=== PATIENT | female | born 1935 | race Caucasian/White ===

== ENCOUNTER 2018-03-10 12:57 | Inpatient (IN) | payer MEDICARE, OTHER ==
[2018-03-10] MEDS ORDERED: Nitroglycerin 0.4 MG TAB (25 Tab Bottle) SL PRN (14:23)
[2018-03-10] MEDS ORDERED: traMADol HCl 50 MG TAB PO PRN (14:23)
[2018-03-10] MEDS ORDERED: Loratadine 10 MG TAB PO PRN (14:23)
[2018-03-10] MEDS ORDERED: Mag-Al 1200 mg/1200 mg/30 ML UDCUP PO PRN (14:23)
[2018-03-10] MEDS ORDERED: Calcium Carbonate 500 MG ChewTAB PO PRN (14:23)
[2018-03-10] MEDS ORDERED: cloNIDine 0.1 MG TAB PO PRN (14:23)
[2018-03-10] MEDS ORDERED: hydrALAZINE 20 MG/ML VIAL SLOW IVP PRN (14:23)
[2018-03-10] MEDS ORDERED: Diabetic Tussin 200 MG/10 ML UDCUP PO PRN (14:23)
[2018-03-10] MEDS ORDERED: Benzonatate 100 MG CAP PO PRN (14:23)
[2018-03-10 14:45] LABS: Hemoglobin 15.6 g/dL (12.0-16.0); Mean Corpuscular HGB CONC 33.6 g/dL (32.0-36.0); Mean Corpuscular Hemoglobin 34.4 pg (27.0-31.0); Mean Platelet Volume 5.4 fL (7.4-10.4); Platelet Count 279 thou/uL (130-400); RBC Distribution Width 12.2 % (11.5-14.5); Red Blood Cell (RBC) Count 4.54 mill/uL (4.20-5.40); White Blood Cell (WBC) Count 16.4 thou/uL (4.8-10.8)
[2018-03-10 15:05] VITALS: BMI 26.1
[2018-03-10 15:07] LABS: Band 17 % (5-11); Eosinophils 3 % (0-10); Lymphocytes 14 % (21-51); MDiff Complete? YES; Monocytes 11 % (0-10); Myelocyte 1 % (0-0); Neutrophil 53 % (42-75); PLT Morphology Comment Appears Adequate; RBC Morphology Normal; Reactive Lymphocytes 1 % (0-10)
[2018-03-10 15:11] LABS: ALT (SGPT) 12 U/L (8-55); AST (SGOT) 11 U/L (5-34); Albumin 3.1 g/dL (3.4-4.8); Alkaline Phosphatase 73 U/L (40-150); Anion Gap 13 mmol/L (10-20); BUN (Urea Nitrogen) 11 mg/dL (9.8-20.1); Bilirubin, Total 0.7 mg/dL (0.2-1.2); Calc. Creatinine Clearance 67 mL/min (70-130); Calcium 8.8 mg/dL (7.8-10.44); Carbon Dioxide 28 mmol/L (23-31); Chloride 99 mmol/L (98-107); Estimated GFR-MDRD 75; Globulin 3.2 g/dL (2.4-3.5); Glucose 118 mg/dL (83-110); Protein, Total 6.3 g/dL (6.0-8.3); Sodium 137 mmol/L (136-145)
[2018-03-10 15:17] LABS: Potassium 2.6 mmol/L (3.5-5.1)
--- NOTE | 2018-03-10 15:50 | HP ---
DATE OF ADMISSION: 03/10/2018 PRIMARY CARE PHYSICIAN: Dr. Mendoza Read. CHIEF COMPLAINT: Diarrhea with blood in the stools. HISTORY OF PRESENT ILLNESS: Ms. Chandra is a very pleasant 83-year-old female with past medical hi story of microscopic colitis, usually under control, who presented as a direct admit from primary [facility] e physician's office today with the above-mentioned complaints. History is mainly obtained by the pa clara herself and supplemented by her present in the room. Ms. Chandra reports that she was diagnosed with microscopic colitis about 20 years ago and has had a colonoscopy about 10 years ago. She has followed up with a general helper in [facility]. She has been stable without any significant symptoms on budesonide 3 tablets every morning. However, ab out 1 week ago, she started to have significant amount of diarrhea with incontinence. She was going multiple times of the day and it was difficult for her to control it. It was associated with some cr ampy abdominal pain, mainly in the lower abdomen. She did not have any nausea and vomiting. She did report feeling feverish and her highest temperature was 100.2. It was associated with some chills. She denies any nausea or vomiting. Today morning, she actually had passed a significant amount of b lood in place of stools. She has noticed a small amount of blood in the stools for the last few days , but it was only minor on wiping. This morning, she reports that "only blood came out." She presen cristian to her primary care physician's office where she was found to have low blood pressure. Reportedl y, systolic was in the 90s. She was sent to the hospital as a direct admit for further evaluation an d resuscitation. At the time of my examination, the patient is hemodynamically stable, awake, alert, oriented x3 and i s nontoxic and is symptom free. She was treated with metronidazole as an outpatient for the last 4 days without benefit. PAST MEDICAL HISTORY: Microscopic colitis. PAST SURGICAL HISTORY: 1. Tonsillectomy. 2. Ovarian surgery and appendectomy. 3. Mastectomy 1970. 4. Cholecystectomy in 1987. 5. Left knee surgery. 6. Cataract surgery. 7. Left total knee replacement in 2013. SOCIAL HISTORY: She is and lives with her . No history of drug, tobacco or alcohol a buse. CURRENT MEDICATIONS: Include aspirin 81 mg every night, melatonin 10 mg at bedtime, multivitamin chase ly, Probiotic daily, vitamin C daily, omeprazole 20 mg daily, triazolam 2 tablets at bedtime, budeson shantel 3 tablets every morning, Lipitor 1 tablet at bedtime. ALLERGIES: Multiple allergies listed as below, CLINDAMYCIN, LEVOFLOXACIN, PENICILLIN, POLYETHYLENE G LYCOL and SULFONAMIDES. FAMILY HISTORY: Significant for heart attack in her father in his late 80s. Otherwise, she denies a ny family history of stroke or cancers. REVIEW OF SYSTEMS: A 12-point review of systems is done and is negative except for those mentioned i n the history and physical. Constitutional: Weight loss or gain, ability to conduct usual activitie s. Skin: Rash, itching. Eyes: Double vision, pain. ENT/Mouth: Nose bleeding, neck stiffness, pa in, tenderness. Cardiovascular: Palpitations, dyspnea on exertion, orthopnea. Respiratory: Shortn ess of breath, wheezing, cough, hemoptysis, fever or night sweats. Gastrointestinal: Poor appetite, abdominal pain, heartburn, nausea, vomiting, constipation, or diarrhea. Genitourinary: Urgency, fr equency, dysuria, nocturia. Musculoskeletal: Pain, swelling. Neurologic/Psychiatric: Anxiety, dep ression. Allergy/Immunologic: Skin rash, bleeding tendency. LABORATORY DATA: Labs were ordered at the time of presentation and are as follows: CBC shows WBCs a t 16.4 with 17% bands, hemoglobin is 15.6, hematocrit 46.5, platelet count of 79,000. Serum chemistr ies show glucose of 118. Potassium is pending at this time, but her liver enzymes and rest of the [facility] chemistries are unremarkable. PHYSICAL EXAMINATION: VITAL SIGNS: Upon presentation, temperature 99.2, pulse of 117, respirations 16, saturating 93% on r oom air, blood pressure 141/82. GENERAL: No acute distress. She is awake, alert, oriented x3, appears younger than her stated age, in no acute distress, appears nontoxic. HEENT: Mucous membranes are slightly dry. No oropharyngeal exudate or erythema. Head is normocepha lic, atraumatic. Pupils equal and reactive to light and accommodation. Extraocular movement intact. NECK: Supple without any lymphadenopathy, JVD or bruit. CHEST: Clear to auscultation without any wheezing, rales or rhonchi. Rate and rhythm is regular wit hout any murmur, rubs or gallops. ABDOMEN: Soft. No guarding, no rebound, no rigidity, no hepatosplenomegaly. She is tender to palpa tion below the umbilical region in both right and left lower quadrants. EXTREMITIES: Free of any cyanosis, clubbing or edema. SKIN: Shows some bruising and thin skin. Otherwise, no rashes. NEUROLOGIC: Nonfocal. PSYCHIATRIC: She has normal affect IMPRESSION AND PLAN: 1. Bloody diarrhea, suspected infectious gastroenteritis. The patient has been stable with regards to her symptoms of microscopic colitis for all these years on budesonide. With the presence of fever and leukocytosis, infection is more likely. At this time, we will start her on empiric IV antibioti cs and IV fluids and send stool studies for ova and parasite culture, WBCs and C. diff. We will requ est consultation with Gastroenterology and continue her budesonide for now. We will hold her aspirin for now. Her H&H is stable at this time. We will start her empirically on proton pump inhibitor IV b.i.d. 2. Hypovolemic shock. The patient's blood pressure is adequate at this time. She will be started o n normal saline and we will monitor closely. 3. Sepsis. The patient has elevated WBCs with left shift and subjective fever and the source of inf ection. She will be treated with IV fluids and IV antibiotics as above. 4. History of microscopic colitis. The patient will be referred to GI after discharge as desired by her. Continue budesonide for now. Outpatient colonoscopy as suggested by Gastroenterology upon jesús womack. 5. Code status: FULL CODE. Discussed with the patient and her . 6. Deep venous thrombosis and gastrointestinal prophylaxis. At this time, we will avoid any pharmac ological deep venous thrombosis prophylaxis given the gastrointestinal bleed. 7. Add p.r.n. medication orders and supportive care. DISPOSITION: Ms. Chandra is currently being admitted to the hospital with sepsis and likely infect ious gastroenteritis. Estimated length of stay at this time is at least 2-3 midnights. Further management will depend upon her clinical course.
[2018-03-10] MEDS: Sodium Chloride 0.9% 1,000 ML IV SCH (16:06)
[2018-03-10] MEDS: Potassium Chloride 20 MEQ TAB PO SCH ×2 (16:07→21:06)
[2018-03-10] MEDS: Calcium Carbonate + Vit D 1 TAB PO SCH (17:49)
[2018-03-10] MEDS ORDERED: TRIAZOLAM PO SCH (21:00)
[2018-03-10] MEDS: Melatonin 3 MG TAB PO SCH (21:05)
[2018-03-10] MEDS: MEROPENEM 1 GM/50 ML 1 GM in Premix Bag 1 BAG IVPB SCH (21:07)
[2018-03-10] MEDS: Pantoprazole 40 MG VIAL IVP SCH (21:07)
[2018-03-10] MEDS: metroNIDAZOLE 500 MG in Premix Bag 1 BAG IVPB SCH (21:08)
[2018-03-10] MEDS ORDERED: Meropenem 1 GM in Sodium Chloride 0.9% 100 ML IVPB SCH (22:00)
--- NOTE | 2018-03-10 22:23 | CON ---
DATE OF CONSULTATION: 03/10/2018 CHIEF COMPLAINT: Bloody diarrhea. HISTORY OF PRESENT ILLNESS: Ms. Chandra is an 83-year-old woman who presented with brown liquidy d iarrhea 5 times a day starting on Saturday, 3 days ago. She felt very dehydrated with this. She estrada d Dr. Montgomery's office and was given metronidazole empirically. Today, she had a liquidy bloody diarrh ea episode and she came in. She was direct admitted to the hospital for further care. She has had n o nausea or vomiting. She complains of dull aching lower abdominal pain that last around 20 minutes at a time several times per day. She did have loss of continence with the diarrhea initially. She h as had no chest pain or shortness of breath. She does report a fever to 100.7 when the diarrhea firs t started several days ago, but no ongoing fever. She did have an episode of diarrhea in August which she took some metronidazole then. She has been on budesonide daily for years for microscopic colitis. She states her last colonoscopy was by Dr. Burgos in [place] last fall. PAST MEDICAL HISTORY: Microscopic colitis, hyperlipidemia, insomnia. PAST SURGICAL HISTORY: Tonsillectomy, cholecystectomy, ovary surgery, left mastectomy for benign dis ease, and colonoscopy. FAMILY HISTORY: Negative for GI malignancy. Her father had emphysema. SOCIAL HISTORY: She quit smoking 50 years ago. She has around 3 ounces of bourbon daily. No drugs. ALLERGIES: SULFA, CLINDAMYCIN, PENICILLIN, LEVOFLOXACIN and reported GoLYTELY. REVIEW OF SYSTEMS: Negative x10 systems reviewed except as stated in history of present illness. PHYSICAL EXAMINATION: VITAL SIGNS: Temperature 99.2, pulse 107, blood pressure 141/82. GENERAL: She is in no acute distress, alert and oriented x3. HEENT: Eyes have no scleral icterus. Oropharynx is clear, without lesions. NECK: No cervical or supraclavicular lymphadenopathy. LUNGS: Clear to auscultation bilaterally. HEART: Tachycardic S1, S2. ABDOMEN: Soft, mild tenderness in lower abdomen without guarding, a little bit more so tender in the left lower quadrant. Bowel sounds are present. EXTREMITIES: No lower extremity edema. LABORATORY: White blood cell count 16.4, hemoglobin 15.6, platelets 279. Creatinine 0.57. IMPRESSION: 1. Diarrhea for the last 4 days with bloody diarrhea this morning. She is on budesonide chronically for microscopic colitis. Infectious colitis would be the most likely source; however, she could hav e developed an ischemic colitis related to dehydration from infectious colitis. She has been treated empirically with metronidazole for the last 3-4 days and the symptoms have continued, however. She does have 3 ounces of bourbon daily, but she has not had any since starting the metronidazole. 2. History of microscopic colitis diagnosed 20 years ago. She has been on budesonide for many years 9 mg daily. RECOMMENDATIONS: 1. Obtain the previous colonoscopy report if she states she just had one in [place] last fall. 2. IV fluids and antibiotics. 3. Stool studies. 4. I will hold off endoscopy at this point until we have the previous report. CT will unlikely smalls ge management significantly now. It might help show a pattern of colitis. It might be suggestive of ischemic colitis; however, the first up release to obtain stool studies and treat her clinically. 5. Clear liquid diet.
[2018-03-10 22:47] LABS: Bilirubin Small (Negative); Blood, Urine Negative (Negative); Clarity CLOUDY (Clear); Glucose, Urine (Dipstick) Negative (Negative); Leukocyte Moderate (Negative); Nitrite Positive (Negative); Protein, Urine (Dipstick) Trace mg/dL (Neg-Trace); Specific Gravity, Urine 1.017 (1.002-1.036); pH, Urine 6.5 (5.0-9.0)
[2018-03-10 22:49] LABS: Bacteria/HPF 1+ HPF (None Seen); Hyaline Casts/LPF 7-10 HYALINE CAST LPF (0-3 Hyaline); Pathc Cast-AUWi Flag 0.87 (0-2.49)
[2018-03-11 05:52] LABS: Anion Gap 11 mmol/L (10-20); BUN (Urea Nitrogen) 10 mg/dL (9.8-20.1); Calc. Creatinine Clearance 88 mL/min (70-130); Calcium 7.9 mg/dL (7.8-10.44); Carbon Dioxide 24 mmol/L (23-31); Chloride 106 mmol/L (98-107); Estimated GFR-MDRD Greater than 90; Glucose 84 mg/dL (83-110); Potassium 3.6 mmol/L (3.5-5.1); Sodium 137 mmol/L (136-145)
[2018-03-11 06:13] LABS: Band 45 % (5-11); Eosinophils 1 % (0-10); Hemoglobin 13.7 g/dL (12.0-16.0); Lymphocytes 23 % (21-51); MDiff Complete? YES; Mean Corpuscular HGB CONC 33.6 g/dL (32.0-36.0); Mean Corpuscular Hemoglobin 34.4 pg (27.0-31.0); Mean Platelet Volume 5.8 fL (7.4-10.4); Metamyelocyte 1 % (0-0); Monocytes 10 % (0-10); Neutrophil 20 % (42-75); PLT Morphology Comment Appears Adequate; Platelet Count 252 thou/uL (130-400); RBC Distribution Width 12.1 % (11.5-14.5); Red Blood Cell (RBC) Count 3.97 mill/uL (4.20-5.40); White Blood Cell (WBC) Count 12.7 thou/uL (4.8-10.8)
[2018-03-11] MEDS: MEROPENEM 1 GM/50 ML 1 GM in Premix Bag 1 BAG IVPB SCH ×3 (06:32→21:51)
[2018-03-11] MEDS: metroNIDAZOLE 500 MG in Premix Bag 1 BAG IVPB SCH ×3 (06:32→20:45)
[2018-03-11] MEDS: Sodium Chloride 0.9% 1,000 ML IV SCH ×4 (06:32→20:45)
[2018-03-11] MEDS: Pantoprazole 40 MG VIAL IVP SCH ×2 (09:20→20:39)
--- NOTE | 2018-03-11 12:14 | PDOC.PN ---
- Subjective Encounter Start Date: 03/11/18 Encounter Start Time: 12:20 Subjective: Patient reports some improvement in abdominal pain this morning and less -: diarrhea. Still some blood in the diarrhea. No fever or other complaints. - Objective Resuscitation Status: Resuscitation Status FULL:Full Resuscitation MAR Reviewed: Yes Vital Signs & Weight: Vital Signs (12 hours) Temp Pulse Resp BP Pulse Ox 03/11/18 08:00 99.2 F 101 H 20 133/66 95 03/11/18 04:00 99.0 F 100 17 129/65 94 L Weight Admit Weight 162 lb Weight 162 lb I&O: 03/10/18 03/11/18 03/12/18 06:59 06:59 06:59 Intake Total 1890 Output Total 700 Balance 1190 Result Diagrams: 03/11/18 04:25 03/11/18 04:25 Phys Exam - Physical Examination Constitutional: NAD HEENT: moist MMs Respiratory: no wheezing, no rales, no rhonchi Cardiovascular: RRR, no significant murmur Gastrointestinal: soft, positive bowel sounds Mild TTP entire lower abdomen without guarding Neurological: non-focal, moves all 4 limbs Psychiatric: normal affect, A&O x 3 Dx/Plan (1) Sepsis Code(s): A41.9 - SEPSIS, UNSPECIFIED ORGANISM Status: Acute Comment: WBC decreasing, tachycardia improved (2) Infectious colitis Code(s): A09 - INFECTIOUS GASTROENTERITIS AND COLITIS, UNSPECIFIED Status: Acute Comment: On Meropenem and Flagyl. Stool studies positive for blood and elevated lactoferrin. C.diff, Enterohemorrhagic E.coli, Shiga toxin, Campy, O&P all negative. Culture with normal stool rina. (3) GI bleed Code(s): K92.2 - GASTROINTESTINAL HEMORRHAGE, UNSPECIFIED Status: Acute Comment: secondary to #1, blood counts stable (4) Microscopic colitis Code(s): K52.839 - MICROSCOPIC COLITIS, UNSPECIFIED Status: Chronic Comment : controlled on Budesonide - Plan cont current plan of care, continue antibiotics, PT/OT, DVT proph w/SCDs * . - Discharge Day Encounter end time: 12:45
[2018-03-11] MEDS: Saccharomyces boulardii 250 MG CAP PO SCH (14:25)
[2018-03-11] MEDS: Calcium Carbonate + Vit D 1 TAB PO SCH ×2 (18:05→18:09)
[2018-03-11] MEDS: Ondansetron HCl/PF 4 MG/2 ML Vial IVP PRN (18:06)
--- NOTE | 2018-03-11 18:46 | PRG ---
DATE OF SERVICE: 03/11/2018 SUBJECTIVE: Ms. Chandra has left lower quadrant abdominal discomfort today. She has had 4 bloody diarrhea episodes; however, her fifth stool today with liquidy brown and nonbloody. She has had just some water today by mouth. OBJECTIVE: VITAL SIGNS: Temperature 98.1, pulse 102, blood pressure 129/68. GENERAL: She is in no acute distress. She is alert and oriented. LUNGS: Clear to auscultation bilaterally. HEART: Regular rate and rhythm. ABDOMEN: Soft, nontender, she has mild tenderness in the left lower quadrant without guarding. Liana l sounds are present. EXTREMITIES: No lower extremity edema. LABORATORY DATA: White blood cell count 12.7, down from 16.4; hemoglobin 13.7, down from 15.6; plate lets 252. Creatinine 0.56. IMPRESSION: Bloody diarrhea. This is most likely secondary to ischemic colitis versus infectious co litis. Stool studies are negative so far except for an elevated lactoferrin. She now states that he r last colonoscopy was 5 years ago rather than last August. RECOMMENDATIONS: 1. I will increase her IV fluids up to 200 mL per hour. 2. Restart clear liquid diet. 3. Continue antibiotics. 4. We will eventually want to perform colonoscopy for her. If she rapidly improved over the next co uple of days, so we might delay this for a month; however, she fails to improve, then we can perform this as an inpatient. She was quite dehydrated on presentation. Her hemoglobin has improved with fl uids. Her hemoglobin has come down with fluid resuscitation.
[2018-03-11] MEDS: Acetaminophen 325 MG TAB PO PRN (20:38)
[2018-03-11] MEDS: Melatonin 3 MG TAB PO SCH (20:38)
[2018-03-12] MEDS: MEROPENEM 1 GM/50 ML 1 GM in Premix Bag 1 BAG IVPB SCH ×3 (05:12→21:18)
[2018-03-12] MEDS: metroNIDAZOLE 500 MG in Premix Bag 1 BAG IVPB SCH ×3 (06:20→21:19)
[2018-03-12] MEDS: Saccharomyces boulardii 250 MG CAP PO SCH (09:39)
[2018-03-12] MEDS: Pantoprazole 40 MG VIAL IVP SCH ×2 (09:40→20:13)
--- NOTE | 2018-03-12 09:41 | PDOC.PN ---
- Subjective Encounter Start Date: 03/12/18 Encounter Start Time: 11:50 Subjective: Patient with 15 bloody stools overnight. Feels a bit weak but still -: ambulating well to the bathroom. Abdominal pain not bad, seems to be -: improving. - Objective Resuscitation Status: Resuscitation Status FULL:Full Resuscitation MAR Reviewed: Yes Vital Signs & Weight: Vital Signs (12 hours) Temp Pulse Resp BP Pulse Ox 03/12/18 07:56 98.9 F 100 18 127/71 95 Weight Admit Weight 162 lb Weight 162 lb I&O: 03/11/18 03/12/18 03/13/18 06:59 06:59 06:59 Intake Total 1890 345 Output Total 700 Balance 1190 345 Result Diagrams: 03/11/18 04:25 03/11/18 04:25 Phys Exam - Physical Examination Constitutional: NAD HEENT: moist MMs Respiratory: no wheezing, no rales, no rhonchi Cardiovascular: RRR, no significant murmur Gastrointestinal: soft, positive bowel sounds Neurological: non-focal, moves all 4 limbs Psychiatric: normal affect, A&O x 3 Dx/Plan (1) Sepsis Code(s): A41.9 - SEPSIS, UNSPECIFIED ORGANISM Status: Acute Comment: WBC decreasing, tachycardia improved though still around 100 this AM (2) Infectious colitis Code(s): A09 - INFECTIOUS GASTROENTERITIS AND COLITIS, UNSPECIFIED Status: Acute Comment: On Meropenem and Flagyl. Stool studies positive for blood and elevated lactoferrin. C.diff, Enterohemorrhagic E.coli, Shiga toxin, Campy, O&P all negative. Culture with normal stool rina. (3) GI bleed Code(s): K92.2 - GASTROINTESTINAL HEMORRHAGE, UNSPECIFIED Status: Acute Comment: secondary to #1, recheck H/H to make sure blood counts remaining stable (4) Microscopic colitis Code(s): K52.839 - MICROSCOPIC COLITIS, UNSPECIFIED Status: Chronic Comment : controlled on Budesonide - Plan cont current plan of care, continue antibiotics, PT/OT, DVT proph w/SCDs Continue IV abx -: If doesn't improve may need colonscopy in hospital * . - Discharge Day Encounter end time: 12:00
[2018-03-12 12:19] LABS: Hemoglobin 13.9 g/dL (12.0-16.0)
[2018-03-12] MEDS: Sodium Chloride 0.9% 1,000 ML IV SCH (16:49)
[2018-03-12] MEDS ORDERED: GoLYTELY 4,000 ml Bottle PO SCH (18:15)
[2018-03-12] MEDS: Calcium Carbonate + Vit D 1 TAB PO SCH (18:30)
--- NOTE | 2018-03-12 18:32 | PRG ---
DATE OF SERVICE: 03/12/2018 SUBJECTIVE: Ms. Chandra states that she was on multiple times last night with bloody diarrhea. Sh isaac has had less diarrhea today, but still had some blood when she wipes. She has improvement in her l ower abdominal pain. OBJECTIVE VITAL SIGNS: Maximum temperature 100.0, current temperature 98.9, pulse 100, blood pressure 127/71. GENERAL: She is in no acute distress, awake and alert. LUNGS: Clear to auscultation bilaterally. HEART: Regular rate and rhythm. ABDOMEN: Soft, nontender, nondistended, bowel sounds are present. EXTREMITIES: No lower extremity edema. LABORATORY DATA: Hemoglobin remains stable at 13.9. IMPRESSION: Bloody diarrhea. This is most likely secondary to ischemic colitis. Stool studies are negative for pathogens. Given the ongoing diarrhea and bleeding and that her last colonoscopy was at least 5 years ago, we will plan to follow through with colonoscopy tomorrow to verify the diagnosis. RECOMMENDATIONS: 1. Colonoscopy tomorrow. 2. Continue IV fluids and antibiotics. It is noted the patient reports on her allergy list an allergy to POLYETHYLENE GLYCOL. In discussion with her last time she took the bowel prep, she felt like she almost fainted. This is unlikely a tr ue allergy to the POLYETHYLENE GLYCOL. She more likely had some dehydration or vagal reaction relate d to the bowel prep. We will follow through with writing for the POLYETHYLENE GLYCOL prep for a colo noscopy for tomorrow.
[2018-03-12] MEDS: Melatonin 3 MG TAB PO SCH (21:30)
[2018-03-13] MEDS: Sodium Chloride 0.9% 1,000 ML IV SCH ×4 (00:46→22:06)
[2018-03-13] MEDS: Ondansetron HCl/PF 4 MG/2 ML Vial IVP PRN (00:59)
[2018-03-13] MEDS: MEROPENEM 1 GM/50 ML 1 GM in Premix Bag 1 BAG IVPB SCH (05:16)
[2018-03-13] MEDS: metroNIDAZOLE 500 MG in Premix Bag 1 BAG IVPB SCH (05:16)
[2018-03-13 05:35] LABS: Anion Gap 18 mmol/L (10-20); BUN (Urea Nitrogen) Less than 4 mg/dL (9.8-20.1); Calc. Creatinine Clearance 85 mL/min (70-130); Calcium 7.6 mg/dL (7.8-10.44); Carbon Dioxide 17 mmol/L (23-31); Chloride 105 mmol/L (98-107); Estimated GFR-MDRD Greater than 90; Glucose 95 mg/dL (83-110); Sodium 137 mmol/L (136-145)
[2018-03-13 05:38] LABS: Potassium 2.6 mmol/L (3.5-5.1)
[2018-03-13 06:07] LABS: Band 29 % (5-11); Hemoglobin 13.9 g/dL (12.0-16.0); Lymphocytes 14 % (21-51); MDiff Complete? YES; Mean Corpuscular HGB CONC 33.7 g/dL (32.0-36.0); Mean Corpuscular Hemoglobin 34.4 pg (27.0-31.0); Mean Platelet Volume 5.5 fL (7.4-10.4); Monocytes 7 % (0-10); Myelocyte 2 % (0-0); Neutrophil 47 % (42-75); Platelet Count 259 thou/uL (130-400); RBC Distribution Width 12.4 % (11.5-14.5); Reactive Lymphocytes 1 % (0-10); Red Blood Cell (RBC) Count 4.04 mill/uL (4.20-5.40); White Blood Cell (WBC) Count 10.9 thou/uL (4.8-10.8)
[2018-03-13] MEDS: Potassium Chloride 20 MEQ in Premix Bag 1 BAG IVPB SCH ×2 (09:08→14:26)
[2018-03-13] MEDS: Pantoprazole 40 MG VIAL IVP SCH ×2 (09:08→20:47)
[2018-03-13] MEDS: Saccharomyces boulardii 250 MG CAP PO SCH (09:09)
--- NOTE | 2018-03-13 10:47 | PRG ---
DATE OF SERVICE: 03/13/2018 SUBJECTIVE: Mrs. Chandra is feeling much better this morning, subjectively rated as 75% improved. She no longer has abdominal pain. She still has frequent loose bowels, but with hardly any blood. There is no nausea or vomiting. The patient could not tolerate a bowel prep last night for colonosco py. PHYSICAL EXAMINATION: VITAL SIGNS: Temperature is 98.7, blood pressure 129/76, pulse of 101. GENERAL: She is alert, conversant, in no distress. HEENT: Shows anicteric sclerae. CARDIOVASCULAR: Shows normal S1, S2 regular rate and rhythm. CHEST: Shows normal breath sounds. ABDOMEN: Soft. Mildly protuberant, but nontender. No distention, no palpable mass or organomegaly. Good bowel sounds. EXTREMITIES: Showed trace pretibial edema. LABORATORY DATA: WBC is 10.9, hemoglobin 13.9, platelet count of 259. Sodium 137, potassium 2.6, ch loride 105, CO2 17, creatinine 0.58, BUN of 4. Stool studies all negative. ASSESSMENT: 1. Bloody diarrhea associated abdominal pain on admission, clinically much improved. This is most l ikely from resolving ischemic colitis. According to patient and , she had a normal colonoscop y within the last 5 years in [place]. The patient did not tolerate bowel prep for today's colonoscopy. However, I do not see any urgent need for a colonoscopy at this point given her clinical improvement . 2. Hypokalemia, being replaced. 3. History of chronic microscopic colitis on budesonide. RECOMMENDATIONS: 1. Advance diet and increase activity and ambulation. 2. Continue budesonide 9 mg p.o. q.a.m. 3. Discontinue meropenem and metronidazole. 4. The patient can be discharged tomorrow if she continues clinical improvement and tolerates diet.
--- NOTE | 2018-03-13 16:09 | PDOC.PN ---
- Subjective Encounter Start Date: 03/13/18 Encounter Start Time: 16:07 Subjective: feels much better. -: diarrhea is imrpoving. no more bloddy stools - Objective Resuscitation Status: Resuscitation Status FULL:Full Resuscitation MAR Reviewed: Yes Vital Signs & Weight: Vital Signs (12 hours) Temp Pulse Resp BP Pulse Ox 03/13/18 08:00 98.7 F 101 H 20 95 03/13/18 07:44 98.7 F 101 H 20 129/76 95 Weight Admit Weight 162 lb Weight 162 lb I&O: 03/12/18 03/13/18 03/14/18 06:59 06:59 06:59 Intake Total 345 3200 Balance 345 3200 Result Diagrams: 03/13/18 04:49 03/13/18 04:49 Additional Labs: Microbiology 03/10/18 Unknown Stool C. difficile GDH Antigen & Toxins - Final 03/10/18 Unknown Rectal Stool Lactoferrin - Final 03/10/18 Unknown Rectal Stool Culture - Final 03/10/18 Unknown Rectal Escherichia coli 0157 Culture - Final 03/10/18 Unknown Rectal Rapid Parasite Screen - Final 03/10/18 Unknown Rectal Campylobacter Antigen Assay - Final 03/10/18 Unknown Rectal Shiga Toxin Test - Final 03/10/18 18:50 Stool Stool Occult Blood (SHAWN) - Final labs reviewed Phys Exam - Physical Examination Constitutional: NAD HEENT: PERRLA, moist MMs, sclera anicteric, oral pharynx no lesions Neck: no nodes, no JVD, supple, full ROM Respiratory: no wheezing, no rales, no rhonchi, clear to auscultation bilateral Cardiovascular: RRR, no significant murmur Gastrointestinal: soft, non-tender, no distention, positive bowel sounds Musculoskeletal: no edema, pulses present Neurological: non-focal, normal sensation, moves all 4 limbs Psychiatric: normal affect, A&O x 3 Skin: no rash Dx/Plan (1) Ischemic colitis Code(s): K55.9 - VASCULAR DISORDER OF INTESTINE, UNSPECIFIED Status: Acute (2) Hypokalemia Code(s): E87.6 - HYPOKALEMIA Status: Acute (3) Hypomagnesemia Code(s): E83.42 - HYPOMAGNESEMIA Status: Acute (4) Bloody diarrhea Code(s): R19.7 - DIARRHEA, UNSPECIFIED Status: Resolved (5) Microscopic colitis Code(s): K52.839 - MICROSCOPIC COLITIS, UNSPECIFIED Status: Chronic Comment : controlled on Budesonide - Plan plan discussed w/ family, DVT proph w/SCDs replace an drecheck Potassium and Mag. -: check UA as first sample was contaimnated -: ABx stopped as stool studies all Neg for infectious etiology -: hemodynamically stable. -: Fernie DELUNA in am if no ore bloddy BM and stable. * . Review of Systems - Review of Systems Constitutional: weakness. negative: fever, chills, sweats, malaise, other ENT: negative: Ear Pain, Ear Discharge, Nose Pain, Nose Discharge, Nose Congestion, Mouth Pain, Mouth Swelling, Throat Pain, Throat Swelling, Other Respiratory: negative: Cough, Dry, Shortness of Breath, Hemoptysis, SOB with Excertion, Pleuritic Pain, Sputum, Wheezing Cardiovascular: negative: chest pain, palpitations, orthopnea, paroxysmal nocturnal dyspnea, edema, light headedness, other Gastrointestinal: negative: Nausea, Vomiting, Abdominal Pain, Diarrhea, Constipation, Melena, Hematochezia, Other Genitourinary: negative: Dysuria, Frequency, Incontinence, Hematuria, Retention , Other Musculoskeletal: negative: Neck Pain, Shoulder Pain, Arm Pain, Back Pain, Hand Pain, Leg Pain, Foot Pain, Other Neurological: negative: Weakness, Numbness, Incoordination, Change in Speech, Confusion, Seizures, Other - Medications/Allergies Allergies/Adverse Reactions: Allergies Allergy/AdvReac Type Severity Reaction Status Date / Time clindamycin [From Cleocin] Allergy Verified 03/10/18 13:44 levofloxacin Allergy Verified 03/10/18 13:44 Penicillins Allergy Verified 03/10/18 13:44 polyethylene glycol Allergy Verified 03/10/18 13:44 [From Colyte] polyethylene glycol 3350 Allergy Verified 03/10/18 13:44 [From Colyte] potassium chloride Allergy Verified 03/10/18 13:44 [From Colyte] sodium [From Colyte] Allergy Verified 03/10/18 13:44 sodium bicarbonate Allergy Verified 03/10/18 13:44 [From Colyte] sodium chloride [From Colyte] Allergy Verified 03/10/18 13:44 sodium sulfate [From Colyte] Allergy Verified 03/10/18 13:44 Sulfa (Sulfonamide Allergy Verified 03/10/18 13:44 Antibiotics) Medications: Current Medications Acetaminophen (Tylenol) 650 mg PO Q4H PRN PRN Reason: Headache/Fever or Pain Last Admin: 03/11/18 20:38 Dose: 650 mg Al Hydroxide/Mg Hydroxide (Maalox) 30 ml PO Q6H PRN PRN Reason: Heartburn or Indigestion Benzonatate (Tessalon) 100 mg PO Q4H PRN PRN Reason: Cough Budesonide (Entocort Ec) 9 mg PO QAM [facility] [place] Last Admin: 03/13/18 09:09 Dose: 9 mg Calcium Carbonate (Tums) 1,000 mg PO Q4H PRN PRN Reason: Heartburn or Indigestion Calcium/Vitamin D (Caltrate 600 + Vit D) 1 tab PO 1800 [facility] [place] Last Admin: 03/12/18 18:30 Dose: Not Given Clonidine (Catapres) 0.1 mg PO Q4H PRN PRN Reason: Systolic BP > 150 Guaifenesin (Robitussin Sf) 200 mg PO Q4H PRN PRN Reason: Cough Hydralazine HCl (Apresoline) 10 mg SLOW IVP Q4H PRN PRN Reason: Systolic BP > 170 Sodium Chloride (Normal Saline 0.9%) 1,000 mls @ 50 mls/hr IV .Q20H [facility] [place] Last Admin: 03/13/18 11:24 Dose: 1,000 mls Magnesium Sulfate 1 gm/ Sodium (Chloride) 102 mls @ 100 mls/hr IVPB ONE [facility] [place] Loratadine (Claritin) 10 mg PO DAILYPRN PRN PRN Reason: Sinus Symptoms Last Admin: 03/13/18 02:30 Dose: 10 mg Melatonin (Melatonin) 9 mg PO HS [facility] [place] Last Admin: 03/12/18 21:30 Dose: 9 mg Nitroglycerin (Nitrostat) 0.4 mg SL Q5MIN PRN PRN Reason: Chest Pain Ondansetron HCl (Zofran) 4 mg IVP Q6H PRN PRN Reason: Nausea/Vomiting Last Admin: 03/13/18 00:59 Dose: 4 mg Pantoprazole Sodium (Protonix) 40 mg IVP Q12HR [facility] [place] Last Admin: 03/13/18 09:08 Dose: 40 mg Triazolam [Triazolam (] 2 Tab) 2 each PO HS [facility] Saccharomyces Boulardii (Florastor) 250 mg PO DAILY [facility] Last Admin: 03/13/18 09:09 Dose: 250 mg Sodium Chloride (Flush - Normal Saline) 10 ml IVF Q12HR [facility] Last Admin: 03/13/18 09:09 Dose: 10 ml Sodium Chloride (Flush - Normal Saline) 10 ml IVF PRN PRN PRN Reason: Saline Flush Tramadol HCl (Ultram) 50 mg PO Q4H PRN PRN Reason: Moderate Pain (4-6) Last Admin: 03/13/18 13:16 Dose: 50 mg
[2018-03-13 16:29] LABS: Bilirubin Negative (Negative); Blood, Urine Negative (Negative); Clarity CLOUDY (Clear); Glucose, Urine (Dipstick) Negative (Negative); Leukocyte Small (Negative); Nitrite Negative (Negative); Protein, Urine (Dipstick) 30 mg/dL (Neg-Trace); Specific Gravity, Urine 1.018 (1.002-1.036); Urobilinogen 0.2 mg/dL (0.2-1.0)
[2018-03-13 16:33] LABS: Bacteria/HPF None Seen HPF (None Seen); Hyaline Casts/LPF 7-10 HYALINE CAST LPF (0-3 Hyaline); Pathc Cast-AUWi Flag 1.59 (0-2.49); Squamous Epithelial 21-50 HPF (0-3)
[2018-03-13 16:47] LABS: RBC/HPF None Seen HPF (0-3)
[2018-03-13 18:20] LABS: Potassium 3.1 mmol/L (3.5-5.1)
[2018-03-13] MEDS: Melatonin 3 MG TAB PO SCH (22:04)
[2018-03-14 05:08] LABS: Anion Gap 14 mmol/L (10-20); BUN (Urea Nitrogen) Less than 4 mg/dL (9.8-20.1); Calc. Creatinine Clearance 85 mL/min (70-130); Calcium 7.5 mg/dL (7.8-10.44); Carbon Dioxide 19 mmol/L (23-31); Chloride 105 mmol/L (98-107); Estimated GFR-MDRD Greater than 90; Glucose 108 mg/dL (83-110); Magnesium 1.8 mg/dL (1.6-2.6); Sodium 136 mmol/L (136-145)
[2018-03-14 05:13] LABS: Potassium 2.4 mmol/L (3.5-5.1)
[2018-03-14 06:26] LABS: Band 34 % (5-11); Hemoglobin 13.2 g/dL (12.0-16.0); Lymphocytes 8 % (21-51); MDiff Complete? YES; Mean Corpuscular HGB CONC 33.1 g/dL (32.0-36.0); Mean Corpuscular Hemoglobin 34.1 pg (27.0-31.0); Mean Platelet Volume 5.6 fL (7.4-10.4); Monocytes 6 % (0-10); Neutrophil 52 % (42-75); Platelet Count 237 thou/uL (130-400); RBC Distribution Width 12.5 % (11.5-14.5); Red Blood Cell (RBC) Count 3.86 mill/uL (4.20-5.40); White Blood Cell (WBC) Count 12.2 thou/uL (4.8-10.8)
[2018-03-14] MEDS: Potassium Chloride 20 MEQ TAB PO SCH ×3 (07:33→12:01)
[2018-03-14] MEDS: Saccharomyces boulardii 250 MG CAP PO SCH (10:02)
[2018-03-14] MEDS: Pantoprazole 40 MG VIAL IVP SCH ×2 (10:02→20:24)
--- NOTE | 2018-03-14 12:16 | PDOC.PN ---
- Subjective Encounter Start Date: 03/14/18 Encounter Start Time: 12:14 Subjective: feels poorly.reports bloody dirahhea all night & this morning -: no N/V.mild lower abd pain - Objective Resuscitation Status: Resuscitation Status FULL:Full Resuscitation MAR Reviewed: Yes Vital Signs & Weight: Vital Signs (12 hours) Temp Pulse Resp BP Pulse Ox 03/14/18 08:05 98.9 F 92 20 136/81 95 03/14/18 08:00 98.9 F 92 20 95 Weight Admit Weight 162 lb Weight 162 lb I&O: 03/13/18 03/14/18 03/15/18 06:59 06:59 06:59 Intake Total 3200 2650 Output Total 1 Balance 3200 2649 Result Diagrams: 03/14/18 04:19 03/14/18 04:19 Additional Labs: Microbiology 03/10/18 Unknown Stool C. difficile GDH Antigen & Toxins - Final 03/10/18 Unknown Rectal Stool Lactoferrin - Final 03/10/18 Unknown Rectal Stool Culture - Final 03/10/18 Unknown Rectal Escherichia coli 0157 Culture - Final 03/10/18 Unknown Rectal Rapid Parasite Screen - Final 03/10/18 Unknown Rectal Campylobacter Antigen Assay - Final 03/10/18 Unknown Rectal Shiga Toxin Test - Final 03/10/18 18:50 Stool Stool Occult Blood (SHAWN) - Final labs reviewed Phys Exam - Physical Examination Constitutional: NAD looks tired HEENT: PERRLA, moist MMs, sclera anicteric, oral pharynx no lesions Neck: no nodes, no JVD, supple, full ROM Respiratory: no wheezing, no rales, no rhonchi, clear to auscultation bilateral Cardiovascular: RRR, no significant murmur Gastrointestinal: soft, no distention, positive bowel sounds mild TTP lower abdomen Musculoskeletal: no edema, pulses present Neurological: non-focal, normal sensation, moves all 4 limbs Psychiatric: normal affect, A&O x 3 Skin: no rash Dx/Plan (1) Ischemic colitis Code(s): K55.9 - VASCULAR DISORDER OF INTESTINE, UNSPECIFIED Status: Acute (2) Hypokalemia Code(s): E87.6 - HYPOKALEMIA Status: Acute (3) Hypomagnesemia Code(s): E83.42 - HYPOMAGNESEMIA Status: Acute (4) Bloody diarrhea Code(s): R19.7 - DIARRHEA, UNSPECIFIED Status: Resolved (5) Microscopic colitis Code(s): K52.839 - MICROSCOPIC COLITIS, UNSPECIFIED Status: Chronic Comment : controlled on Budesonide - Plan plan discussed w/ family, continue antibiotics, PT/OT, DVT proph w/SCDs WBC worse & clinically worse.will restart ABx for now. -: able to tolrate diet .cont -: refusing colon prep again.advised about complications from ischemic colitis -: replace & recheck potassium.likley diarrheal losses.add daily dose -: am labs.hemodynamically stable butnot ready for Dc yet.monitor * . Review of Systems - Review of Systems Constitutional: weakness, malaise. negative: fever, chills, sweats, other ENT: negative: Ear Pain, Ear Discharge, Nose Pain, Nose Discharge, Nose Congestion, Mouth Pain, Mouth Swelling, Throat Pain, Throat Swelling, Other Respiratory: negative: Cough, Dry, Shortness of Breath, Hemoptysis, SOB with Excertion, Pleuritic Pain, Sputum, Wheezing Cardiovascular: negative: chest pain, palpitations, orthopnea, paroxysmal nocturnal dyspnea, edema, light headedness, other Gastrointestinal: Diarrhea, Hematochezia. negative: Nausea, Vomiting, Abdominal Pain, Constipation, Melena, Other Genitourinary: negative: Dysuria, Frequency, Incontinence, Hematuria, Retention , Other Musculoskeletal: negative: Neck Pain, Shoulder Pain, Arm Pain, Back Pain, Hand Pain, Leg Pain, Foot Pain, Other Skin: negative: Rash, Lesions, Lex, Bruising, Other Neurological: negative: Weakness, Numbness, Incoordination, Change in Speech, Confusion, Seizures, Other - Medications/Allergies Allergies/Adverse Reactions: Allergies Allergy/AdvReac Type Severity Reaction Status Date / Time clindamycin [From Cleocin] Allergy Verified 03/10/18 13:44 levofloxacin Allergy Verified 03/10/18 13:44 Penicillins Allergy Verified 03/10/18 13:44 polyethylene glycol Allergy Verified 03/10/18 13:44 [From Colyte] polyethylene glycol 3350 Allergy Verified 03/10/18 13:44 [From Colyte] potassium chloride Allergy Verified 03/10/18 13:44 [From Colyte] sodium [From Colyte] Allergy Verified 03/10/18 13:44 sodium bicarbonate Allergy Verified 03/10/18 13:44 [From Colyte] sodium chloride [From Colyte] Allergy Verified 03/10/18 13:44 sodium sulfate [From Colyte] Allergy Verified 03/10/18 13:44 Sulfa (Sulfonamide Allergy Verified 03/10/18 13:44 Antibiotics) Medications: Current Medications Acetaminophen (Tylenol) 650 mg PO Q4H PRN PRN Reason: Headache/Fever or Pain Last Admin: 03/11/18 20:38 Dose: 650 mg Al Hydroxide/Mg Hydroxide (Maalox) 30 ml PO Q6H PRN PRN Reason: Heartburn or Indigestion Benzonatate (Tessalon) 100 mg PO Q4H PRN PRN Reason: Cough Budesonide ([facility]ocort Ec) [facility] [place] Last Admin: 03/14/18 10:01 Dose: 9 mg Calcium Carbonate (Tums) 1,000 mg PO Q4H PRN PRN Reason: Heartburn or Indigestion Clonidine (Catapres) 0.1 mg PO Q4H PRN PRN Reason: Systolic BP > 150 Guaifenesin (Robitussin Sf) 200 mg PO Q4H PRN PRN Reason: Cough Hydralazine HCl (Apresoline) 10 mg SLOW IVP Q4H PRN PRN Reason: Systolic BP > 170 Sodium Chloride (Normal Saline 0.9%) 1,000 mls @ 50 mls/hr IV .Q20H [facility] Last Admin: 03/13/18 22:06 Dose: 1,000 mls Metronidazole 500 mg/ Device 100 mls @ 100 mls/hr IVPB Q8HR [facility] Meropenem 1 gm/ Device 50 mls @ 100 mls/hr IVPB 0500,1300,2100 [facility] Loratadine (Claritin) 10 mg PO DAILYPRN PRN PRN Reason: Sinus Symptoms Last Admin: 03/13/18 02:30 Dose: 10 mg Melatonin (Melatonin) 9 mg PO HS [facility] Last Admin: 03/13/18 22:04 Dose: 9 mg Nitroglycerin (Nitrostat) 0.4 mg SL Q5MIN PRN PRN Reason: Chest Pain Ondansetron HCl (Zofran) 4 mg IVP Q6H PRN PRN Reason: Nausea/Vomiting Last Admin: 03/13/18 00:59 Dose: 4 mg Pantoprazole Sodium (Protonix) 40 mg IVP Q12HR [facility] Last Admin: 03/14/18 10:02 Dose: 40 mg Triazolam [Triazolam (] 2 Tab) 2 each PO HS [facility] Potassium Chloride (K-Dur) 40 meq PO QAM-WM [facility] Saccharomyces Boulardii (Florastor) 250 mg PO DAILY [facility] Last Admin: 03/14/18 10:02 Dose: 250 mg Sodium Chloride (Flush - Normal Saline) 10 ml IVF Q12HR [facility] Last Admin: 03/14/18 10:03 Dose: Not Given Sodium Chloride (Flush - Normal Saline) 10 ml IVF PRN PRN PRN Reason: Saline Flush Tramadol HCl (Ultram) 50 mg PO Q4H PRN PRN Reason: Moderate Pain (4-6) Last Admin: 03/13/18 13:16 Dose: 50 mg
[2018-03-14] MEDS: MEROPENEM 1 GM/50 ML 1 GM in Premix Bag 1 BAG IVPB SCH ×2 (13:52→20:08)
[2018-03-14] MEDS ORDERED: Meropenem 1 GM in Sodium Chloride 0.9% 100 ML IVPB SCH (14:00)
[2018-03-14] MEDS: metroNIDAZOLE 500 MG in Premix Bag 1 BAG IVPB SCH ×2 (15:24→23:03)
--- NOTE | 2018-03-14 16:20 | PRG ---
DATE OF SERVICE: 03/14/2018 SUBJECTIVE: Ms. Chandra has had 12 bowel movements over the last 12 plus hours. These are small v olume up to half a cupful at a time. They have been intermittently bloody. However, the last bowel movement was not bloody. She has had no ongoing nausea or vomiting, her appetite is limited. She on ly took a couple of bites of hamburger today. She ate a fourth of grilled sandwich last night. She did attempt to drink some of the GoLYTELY a couple of nights ago, but did not tolerate it and therefo re, the colonoscopy was placed on hold indefinitely for now. PHYSICAL EXAMINATION: VITAL SIGNS: Temperature is 98.7, pulse 100, blood pressure 134/80. GENERAL: She is in no acute distress. She is alert and oriented x3. LUNGS: Clear to auscultation bilaterally. HEART: Regular rate and rhythm. ABDOMEN: Soft. Mild tenderness in the lower abdomen without guarding. Bowel sounds are present. EXTREMITIES: A 1-2+ pitting lower extremity edema. LABORATORY DATA: Potassium 2.4, creatinine 0.58 and white blood cell count 12.2. IMPRESSION: Ischemic colitis. We will continue supportive care with IV fluids and antibiotics. It is possible that she had an infectious colitis that then triggered ischemic colitis. This is a clini kaitlynn diagnosis at this point. She did not tolerate bowel prep for colonoscopy to confirm the diagnosi s. CT scan could show segmental inflammation to further support diagnosis; however, this will unlike ly change control analyst at this point, so this has been held. She does have a history of microscopic co litis ;however, that would not cause the bleeding. It certainly could contribute to the diarrhea. I do know that she necessarily truly worsened last night with an increase in diarrhea over the last 12 hours. She just started eating solid food again last night. It may be that she has an uptake in th e stool output along with her food intake. RECOMMENDATIONS: 1. Continue IV fluids and antibiotics. 2. Ultimately, if she continues to have persistent symptoms and fails to improve, then colonoscopy t o help differentiate for obvious inflammatory colitis or ischemic colitis or microscopic colitis coul d be performed. 3. Dr. Anderson will cover the weekend.
[2018-03-14] MEDS: Diphenoxylate HCl/Atropine Tablet PO PRN (17:56)
[2018-03-14] MEDS: Acetaminophen 325 MG TAB PO PRN (17:59)
[2018-03-14] MEDS: Melatonin 3 MG TAB PO SCH (22:16)
[2018-03-15 05:20] LABS: Anion Gap 11 mmol/L (10-20); BUN (Urea Nitrogen) Less than 4 mg/dL (9.8-20.1); Calc. Creatinine Clearance 101 mL/min (70-130); Calcium 7.6 mg/dL (7.8-10.44); Carbon Dioxide 22 mmol/L (23-31); Chloride 107 mmol/L (98-107); Estimated GFR-MDRD Greater than 90; Glucose 109 mg/dL (83-110); Potassium 3.3 mmol/L (3.5-5.1); Sodium 137 mmol/L (136-145)
[2018-03-15] MEDS: MEROPENEM 1 GM/50 ML 1 GM in Premix Bag 1 BAG IVPB SCH ×3 (05:30→20:27)
[2018-03-15] MEDS: metroNIDAZOLE 500 MG in Premix Bag 1 BAG IVPB SCH ×3 (06:30→22:20)
[2018-03-15 06:43] LABS: Band 38 % (5-11); Lymphocytes 15 % (21-51); MDiff Complete? YES; Mean Corpuscular HGB CONC 33.8 g/dL (32.0-36.0); Mean Corpuscular Hemoglobin 33.9 pg (27.0-31.0); Mean Platelet Volume 5.6 fL (7.4-10.4); Monocytes 10 % (0-10); Neutrophil 37 % (42-75); Platelet Count 253 thou/uL (130-400); RBC Distribution Width 12.6 % (11.5-14.5); Red Blood Cell (RBC) Count 3.84 mill/uL (4.20-5.40); White Blood Cell (WBC) Count 10.4 thou/uL (4.8-10.8)
[2018-03-15] MEDS: Diphenoxylate HCl/Atropine Tablet PO PRN ×2 (08:45→22:19)
[2018-03-15] MEDS: Potassium Chloride 20 MEQ TAB PO SCH (08:45)
[2018-03-15] MEDS: Saccharomyces boulardii 250 MG CAP PO SCH (08:46)
[2018-03-15] MEDS: Pantoprazole 40 MG VIAL IVP SCH ×2 (08:47→20:28)
--- NOTE | 2018-03-15 13:43 | PDOC.PN ---
- Subjective Encounter Start Date: 03/15/18 Encounter Start Time: 13:42 Subjective: feels much better.still with no appetite -: no N/V/diarrhea has slowed -: mild blood w stools,mainly on TP - Objective Resuscitation Status: Resuscitation Status FULL:Full Resuscitation MAR Reviewed: Yes Vital Signs & Weight: Vital Signs (12 hours) Temp Pulse Resp BP Pulse Ox 03/15/18 08:45 98.9 F 85 14 96 03/15/18 07:59 98.9 F 85 14 119/81 96 03/15/18 06:15 98.7 F Weight Admit Weight 162 lb Weight 162 lb I&O: 03/14/18 03/15/18 03/16/18 06:59 06:59 06:59 Intake Total 2650 1999 Output Total 1 Balance 2649 1999 Result Diagrams: 03/15/18 04:29 03/15/18 04:29 Additional Labs: Microbiology 03/10/18 Unknown Stool C. difficile GDH Antigen & Toxins - Final 03/10/18 Unknown Rectal Stool Lactoferrin - Final 03/10/18 Unknown Rectal Stool Culture - Final 03/10/18 Unknown Rectal Escherichia coli 0157 Culture - Final 03/10/18 Unknown Rectal Rapid Parasite Screen - Final 03/10/18 Unknown Rectal Campylobacter Antigen Assay - Final 03/10/18 Unknown Rectal Shiga Toxin Test - Final 03/10/18 18:50 Stool Stool Occult Blood (SHAWN) - Final Phys Exam - Physical Examination Constitutional: NAD HEENT: PERRLA, moist MMs, sclera anicteric, oral pharynx no lesions Neck: no nodes, no JVD, supple, full ROM Respiratory: no wheezing, no rales, no rhonchi, clear to auscultation bilateral Cardiovascular: RRR, no significant murmur, no rub Gastrointestinal: soft, non-tender, no distention, positive bowel sounds Musculoskeletal: no edema, pulses present Neurological: non-focal, normal sensation, moves all 4 limbs Psychiatric: normal affect, A&O x 3 Skin: no rash Dx/Plan (1) Ischemic colitis Code(s): K55.9 - VASCULAR DISORDER OF INTESTINE, UNSPECIFIED Status: Acute (2) Hypokalemia Code(s): E87.6 - HYPOKALEMIA Status: Acute (3) Hypomagnesemia Code(s): E83.42 - HYPOMAGNESEMIA Status: Acute (4) Bloody diarrhea Code(s): R19.7 - DIARRHEA, UNSPECIFIED Status: Resolved Comment: Fernie infectious componenet Vs Internal hemorrhoids (5) Microscopic colitis Code(s): K52.839 - MICROSCOPIC COLITIS, UNSPECIFIED Status: Chronic Comment : controlled on Budesonide - Plan plan discussed w/ family, continue antibiotics, PT/OT, out of bed/ambulate, DVT proph w/SCDs symptoms improved & WBc NL w restarting ABx.cont -: IVF stopped d/t leg swelling.encourge Po intake -: refuses colonoscopy -: cont lomotil. -: replace & recheck Potassium. * .Fernie Soto in 24-48 hours * am labs Review of Systems - Review of Systems Constitutional: weakness, malaise. negative: fever, chills, sweats, other Respiratory: negative: Cough, Dry, Shortness of Breath, Hemoptysis, SOB with Excertion, Pleuritic Pain, Sputum, Wheezing Cardiovascular: negative: chest pain, palpitations, orthopnea, paroxysmal nocturnal dyspnea, edema, light headedness, other Gastrointestinal: negative: Nausea, Vomiting, Abdominal Pain, Diarrhea, Constipation, Melena, Hematochezia, Other Genitourinary: negative: Dysuria, Frequency, Incontinence, Hematuria, Retention , Other Musculoskeletal: negative: Neck Pain, Shoulder Pain, Arm Pain, Back Pain, Hand Pain, Leg Pain, Foot Pain, Other Skin: negative: Rash, Lesions, Lex, Bruising, Other Neurological: negative: Weakness, Numbness, Incoordination, Change in Speech, Confusion, Seizures, Other - Medications/Allergies Allergies/Adverse Reactions: Allergies Allergy/AdvReac Type Severity Reaction Status Date / Time clindamycin [From Cleocin] Allergy Verified 03/10/18 13:44 levofloxacin Allergy Verified 03/10/18 13:44 Penicillins Allergy Verified 03/10/18 13:44 polyethylene glycol Allergy Verified 03/10/18 13:44 [From Colyte] polyethylene glycol 3350 Allergy Verified 03/10/18 13:44 [From Colyte] potassium chloride Allergy Verified 03/10/18 13:44 [From Colyte] sodium [From Colyte] Allergy Verified 03/10/18 13:44 sodium bicarbonate Allergy Verified 03/10/18 13:44 [From Colyte] sodium chloride [From Colyte] Allergy Verified 03/10/18 13:44 sodium sulfate [From Colyte] Allergy Verified 03/10/18 13:44 Sulfa (Sulfonamide Allergy Verified 03/10/18 13:44 Antibiotics) Medications: Current Medications Acetaminophen (Tylenol) 650 mg PO Q4H PRN PRN Reason: Headache/Fever or Pain Last Admin: 03/14/18 17:59 Dose: 650 mg Al Hydroxide/Mg Hydroxide (Maalox) 30 ml PO Q6H PRN PRN Reason: Heartburn or Indigestion Benzonatate (Tessalon) 100 mg PO Q4H PRN PRN Reason: Cough Budesonide (Entocort Ec) [facility] [place] Last Admin: 03/15/18 08:46 Dose: 9 mg Calcium Carbonate (Tums) 1,000 mg PO Q4H PRN PRN Reason: Heartburn or Indigestion Clonidine (Catapres) 0.1 mg PO Q4H PRN PRN Reason: Systolic BP > 150 Diphenoxylate HCl/Atropine (Lomotil) 1 tab PO QIDPRN PRN PRN Reason: Diarrhea/Loose Stools Last Admin: 03/15/18 08:45 Dose: 1 tab Guaifenesin (Robitussin Sf) 200 mg PO Q4H PRN PRN Reason: Cough Hydralazine HCl (Apresoline) 10 mg SLOW IVP Q4H PRN PRN Reason: Systolic BP > 170 Metronidazole 500 mg/ Device 100 mls @ 100 mls/hr IVPB Q8HR [facility] Last Admin: 03/15/18 06:30 Dose: 100 mls Meropenem 1 gm/ Device 50 mls @ 100 mls/hr IVPB 0500,1300,2100 [facility] Last Admin: 03/15/18 12:40 Dose: 50 mls Loratadine (Claritin) 10 mg PO DAILYPRN PRN PRN Reason: Sinus Symptoms Last Admin: 03/13/18 02:30 Dose: 10 mg Melatonin (Melatonin) 9 mg PO HS [facility] Last Admin: 03/14/18 22:16 Dose: 9 mg Nitroglycerin (Nitrostat) 0.4 mg SL Q5MIN PRN PRN Reason: Chest Pain Ondansetron HCl (Zofran) 4 mg IVP Q6H PRN PRN Reason: Nausea/Vomiting Last Admin: 03/13/18 00:59 Dose: 4 mg Pantoprazole Sodium (Protonix) 40 mg IVP Q12HR [facility] Last Admin: 03/15/18 08:47 Dose: 40 mg Triazolam [Triazolam (] 2 Tab) 2 each PO HS [facility] Potassium Chloride (K-Dur) 40 meq PO QAM-WM [facility] Last Admin: 03/15/18 08:45 Dose: 40 meq Saccharomyces Boulardii (Florastor) 250 mg PO DAILY [facility] Last Admin: 03/15/18 08:46 Dose: 250 mg Sodium Chloride (Flush - Normal Saline) 10 ml IVF Q12HR [facility] Last Admin: 03/15/18 08:47 Dose: 10 ml Sodium Chloride (Flush - Normal Saline) 10 ml IVF PRN PRN PRN Reason: Saline Flush Tramadol HCl (Ultram) 50 mg PO Q4H PRN PRN Reason: Moderate Pain (4-6) Last Admin: 03/13/18 13:16 Dose: 50 mg
--- NOTE | 2018-03-15 21:27 | PRG ---
DATE OF SERVICE: 03/15/2018 HOSPITAL VISIT NOTE SUBJECTIVE: Ms. Blank Chandra is a very pleasant 83-year-old female hospitalized with a bdominal cramping, hematochezia and diarrhea. The patient has a history of microscopic colitis diagn osed early. She takes budesonide 3 mg tablet three times a day. The patient had a bad night last ni ght, she had liquid stools and also bloody diarrhea. This morning, she is feeling better. She has n o abdominal pain. No nausea, vomiting, no diarrhea. Although she has had bloody diarrhea, her blood count has actually remained stable. The WBC count is 10,400, hemoglobin 13, hematocrit 38.6. PHYSICAL EXAMINATION: GENERAL: She appears very comfortable. She is awake, alert, and oriented to time, place and person. VITAL SIGNS: Afebrile, temperature 98.95, pulse 85, blood pressure 119/81. CARDIOVASCULAR SYSTEM: First and second sounds normal. LUNGS: Clear to auscultation. ABDOMEN: Soft. Abdomen is nondistended. Abdomen is nontender. There is no organomegaly or mass. LABORATORY DATA: The stool studies including Clostridium difficile toxin and antigen is negative. A lso, the Campylobacter antigen and Shiga toxin all are negative. CLINICAL IMPRESSION: 1. Bloody diarrhea seems to be resolving and her abdomen is very benign. 2. History of microscopic colitis. PLAN: Diet as tolerated. We will observe for 1 more day. If she does well without any bleeding or diarrhea, may consider discharge home tomorrow.
[2018-03-15] MEDS: Melatonin 3 MG TAB PO SCH (22:19)
[2018-03-16] MEDS: MEROPENEM 1 GM/50 ML 1 GM in Premix Bag 1 BAG IVPB SCH ×3 (05:04→20:09)
[2018-03-16] MEDS: metroNIDAZOLE 500 MG in Premix Bag 1 BAG IVPB SCH (05:55)
[2018-03-16] MEDS: Saccharomyces boulardii 250 MG CAP PO SCH (08:09)
[2018-03-16] MEDS: Potassium Chloride 20 MEQ TAB PO SCH (08:09)
[2018-03-16] MEDS: Pantoprazole 40 MG VIAL IVP SCH ×2 (08:10→20:09)
--- NOTE | 2018-03-16 13:34 | PDOC.PN ---
- Subjective Encounter Start Date: 03/16/18 Encounter Start Time: 13:32 Subjective: diarrhea is reolving.used lomotil 2-3 times in 48 hours. -: still c/o small blood per rectum w/o stools. no AP -: still w poor apetite but drank milkshake/soup last night brought by family - Objective Resuscitation Status: Resuscitation Status FULL:Full Resuscitation MAR Reviewed: Yes Vital Signs & Weight: Vital Signs (12 hours) Temp Pulse Resp BP Pulse Ox 03/16/18 08:00 98.5 F 90 16 130/76 95 Weight Admit Weight 162 lb Weight 162 lb I&O: 03/15/18 03/16/18 03/17/18 06:59 06:59 06:59 Intake Total 1999 1430 Balance 1999 1430 Result Diagrams: 03/18/18 04:27 03/18/18 04:27 Phys Exam - Physical Examination Constitutional: NAD HEENT: PERRLA, moist MMs, sclera anicteric, oral pharynx no lesions Neck: no nodes, no JVD, supple, full ROM Respiratory: no wheezing, no rales, no rhonchi, clear to auscultation bilateral Cardiovascular: RRR, no significant murmur, no rub Gastrointestinal: soft, non-tender, no distention, positive bowel sounds Musculoskeletal: no edema, pulses present Neurological: non-focal, normal sensation, moves all 4 limbs Psychiatric: normal affect, A&O x 3 Skin: no rash Dx/Plan (1) Ischemic colitis Code(s): K55.9 - VASCULAR DISORDER OF INTESTINE, UNSPECIFIED Status: Acute (2) Hypokalemia Code(s): E87.6 - HYPOKALEMIA Status: Acute (3) Hypomagnesemia Code(s): E83.42 - HYPOMAGNESEMIA Status: Acute (4) Bloody diarrhea Code(s): R19.7 - DIARRHEA, UNSPECIFIED Status: Resolved Comment: Likley infectious componenet Vs Internal hemorrhoids (5) Microscopic colitis Code(s): K52.839 - MICROSCOPIC COLITIS, UNSPECIFIED Status: Chronic Comment : controlled on Budesonide - Plan plan discussed w/ family, continue antibiotics, out of bed/ambulate, DVT proph w /SCDs clinically better. No abdominal tenderness.H/H stable. -: cont ABx for now.? IBD given h/o PBC -: pt once agin refuses colonoscopy.wants to get doen as an OP -: script for walker written as per request.walking independently -: check H/H & BMP in am.DC home if stable w OP GI f/u * . Review of Systems - Review of Systems Constitutional: weakness, malaise. negative: fever, chills, sweats, other Respiratory: negative: Cough, Dry, Shortness of Breath, Hemoptysis, SOB with Excertion, Pleuritic Pain, Sputum, Wheezing Cardiovascular: negative: chest pain, palpitations, orthopnea, paroxysmal nocturnal dyspnea, edema, light headedness, other Gastrointestinal: Hematochezia. negative: Nausea, Vomiting, Abdominal Pain, Diarrhea, Constipation, Melena, Other Genitourinary: negative: Dysuria, Frequency, Incontinence, Hematuria, Retention , Other Musculoskeletal: negative: Neck Pain, Shoulder Pain, Arm Pain, Back Pain, Hand Pain, Leg Pain, Foot Pain, Other Neurological: negative: Weakness, Numbness, Incoordination, Change in Speech, Confusion, Seizures, Other - Medications/Allergies Allergies/Adverse Reactions: Allergies Allergy/AdvReac Type Severity Reaction Status Date / Time clindamycin [From Cleocin] Allergy Verified 03/10/18 13:44 levofloxacin Allergy Verified 03/10/18 13:44 Penicillins Allergy Verified 03/10/18 13:44 polyethylene glycol Allergy Verified 03/10/18 13:44 [From Colyte] polyethylene glycol 3350 Allergy Verified 03/10/18 13:44 [From Colyte] potassium chloride Allergy Verified 03/10/18 13:44 [From Colyte] sodium [From Colyte] Allergy Verified 03/10/18 13:44 sodium bicarbonate Allergy Verified 03/10/18 13:44 [From Colyte] sodium chloride [From Colyte] Allergy Verified 03/10/18 13:44 sodium sulfate [From Colyte] Allergy Verified 03/10/18 13:44 Sulfa (Sulfonamide Allergy Verified 03/10/18 13:44 Antibiotics) Medications: Current Medications Acetaminophen (Tylenol) 650 mg PO Q4H PRN PRN Reason: Headache/Fever or Pain Last Admin: 03/14/18 17:59 Dose: 650 mg Al Hydroxide/Mg Hydroxide (Maalox) 30 ml PO Q6H PRN PRN Reason: Heartburn or Indigestion Benzonatate (Tessalon) 100 mg PO Q4H PRN PRN Reason: Cough Budesonide (Entocort Ec) 9 mg PO QAM [facility] Last Admin: 03/16/18 08:09 Dose: 9 mg Calcium Carbonate (Tums) 1,000 mg PO Q4H PRN PRN Reason: Heartburn or Indigestion Clonidine (Catapres) 0.1 mg PO Q4H PRN PRN Reason: Systolic BP > 150 Diphenoxylate HCl/Atropine (Lomotil) 1 tab PO QIDPRN PRN PRN Reason: Diarrhea/Loose Stools Last Admin: 03/15/18 22:19 Dose: 1 tab Guaifenesin (Robitussin Sf) 200 mg PO Q4H PRN PRN Reason: Cough Hydralazine HCl (Apresoline) 10 mg SLOW IVP Q4H PRN PRN Reason: Systolic BP > 170 Meropenem 1 gm/ Device 50 mls @ 100 mls/hr IVPB 0500,1300,2100 [facility] Last Admin: 03/16/18 12:30 Dose: 50 mls Loratadine (Claritin) 10 mg PO DAILYPRN PRN PRN Reason: Sinus Symptoms Last Admin: 03/13/18 02:30 Dose: 10 mg Melatonin (Melatonin) 9 mg PO HS [facility] Last Admin: 03/15/18 22:19 Dose: 9 mg Metronidazole (Flagyl) 500 mg PO TID [facility] Nitroglycerin (Nitrostat) 0.4 mg SL Q5MIN PRN PRN Reason: Chest Pain Ondansetron HCl (Zofran) 4 mg IVP Q6H PRN PRN Reason: Nausea/Vomiting Last Admin: 03/13/18 00:59 Dose: 4 mg Pantoprazole Sodium (Protonix) 40 mg IVP Q12HR [facility] Last Admin: 03/16/18 08:10 Dose: 40 mg Triazolam [Triazolam (] 2 Tab) 2 each PO [facility] Potassium Chloride (K-Dur) 40 meq PO QAM-WM [facility] Last Admin: 03/16/18 08:09 Dose: 40 meq Saccharomyces Boulardii (Florastor) 250 mg PO DAILY [facility] Last Admin: 03/16/18 08:09 Dose: 250 mg Sodium Chloride (Flush - Normal Saline) 10 ml IVF Q12HR [facility] Last Admin: 03/16/18 08:10 Dose: 10 ml Sodium Chloride (Flush - Normal Saline) 10 ml IVF PRN PRN PRN Reason: Saline Flush Tramadol HCl (Ultram) 50 mg PO Q4H PRN PRN Reason: Moderate Pain (4-6) Last Admin: 03/13/18 13:16 Dose: 50 mg
[2018-03-16] MEDS: Diphenoxylate HCl/Atropine Tablet PO PRN (13:58)
[2018-03-16] MEDS: metroNIDAZOLE 500 MG TAB PO SCH ×2 (14:01→20:09)
--- NOTE | 2018-03-16 18:31 | PRG ---
DATE OF SERVICE: 03/16/2018 SUBJECTIVE: This is an 83-year-old female with a history of microscopic colitis, admitted to the hospital with hematochezia and rectal bleeding. Although she has had bleeding off and on, her blood count is actually pretty stable. Over the last 4 days, her blood count is around 13.7. She h as had mild bleeding today x2. As per the nurse, the bleeding is very mild. There is no abdominal p ain. There is no nausea and vomiting. She is tolerating diet. OBJECTIVE: GENERAL: Appears comfortable. VITAL SIGNS: Stable, afebrile. Pulse is 90, blood pressure 130/76. CARDIOVASCULAR: First and second heart sounds normal. LUNGS: Clear to auscultation. ABDOMEN: Soft. Nontender. No organomegaly or masses. CLINICAL IMPRESSION: 1. Rectal bleeding, diarrhea, possible infectious colitis versus ischemic colitis. 2. History of microscopic colitis. She seems to be doing better except for mild bleeding. Her abdomen is very benign. The patient was kept one more day in the hospital. If she does well, consider discharge tomorrow.
[2018-03-16] MEDS: Melatonin 3 MG TAB PO SCH (22:02)
[2018-03-17] MEDS: MEROPENEM 1 GM/50 ML 1 GM in Premix Bag 1 BAG IVPB SCH ×3 (05:12→21:54)
[2018-03-17 05:19] LABS: Hemoglobin 13.4 g/dL (12.0-16.0)
[2018-03-17 06:03] LABS: Anion Gap 11 mmol/L (10-20); BUN (Urea Nitrogen) 4 mg/dL (9.8-20.1); Calc. Creatinine Clearance 101 mL/min (70-130); Calcium 7.6 mg/dL (7.8-10.44); Carbon Dioxide 26 mmol/L (23-31); Chloride 105 mmol/L (98-107); Estimated GFR-MDRD Greater than 90; Glucose 91 mg/dL (83-110); Potassium 3.1 mmol/L (3.5-5.1); Sodium 139 mmol/L (136-145)
[2018-03-17] MEDS ORDERED: Potassium Chloride 40 MEQ in Sodium Chloride 0.9% 250 ML 250 ML IV SCH (08:15)
[2018-03-17] MEDS: Saccharomyces boulardii 250 MG CAP PO SCH (09:11)
[2018-03-17] MEDS: metroNIDAZOLE 500 MG TAB PO SCH ×3 (09:11→21:55)
[2018-03-17] MEDS: Potassium Chloride 20 MEQ TAB PO SCH (09:11)
[2018-03-17] MEDS: Pantoprazole 40 MG VIAL IVP SCH ×2 (09:13→21:55)
[2018-03-17] MEDS ORDERED: GoLYTELY 4,000 ml Bottle PO SCH (10:30)
--- NOTE | 2018-03-17 12:22 | PRG ---
DATE OF SERVICE: 03/17/2018 SUBJECTIVE: Ms. Chandra still reports that she is having diarrhea with loss of continence and is a sking for Imodium for that. She continues to pass small amounts of blood few times per day around 4 bowel movements per day. She states she is weak; however, her family states that she has been taking some increase oral intake. She had fourth of an [place] muffin this morning and a glass of milk. S he has been ambulating with assistance. She has required potassium daily. PHYSICAL EXAMINATION: VITAL SIGNS: Temperature 98.5, pulse 105, blood pressure 108/78. GENERAL: She is in no acute distress. She is alert and oriented x3. LUNGS: Clear to auscultation bilaterally. HEART: Tachycardic, S1 and S2. ABDOMEN: Soft, nontender, minimal tenderness in the lower abdomen to palpation. There is no guardin g. Bowel sounds are present. EXTREMITIES: No lower extremity edema. LABORATORY DATA: Potassium is 3.1, creatinine 0.49, white blood cell count 10.4 on 03/15/2018, hemog lobin 13.4. IMPRESSION: 1. Bloody diarrhea. The volume of the diarrhea is low volume. However, she continues to have liqui dy stools with loss of continence for which she is asking for Imodium. 2. She continues to have rectal bleeding multiple times per day; however, this is small volume and h er hemoglobin remains stable. 3. Weakness and low potassium associated with the diarrhea. 4. Overall, I think that endoscopy is necessary at this point to help to determine diagnosis and pro gnosis. I am concerned that if she is discharged immediately, then she will go home and take a signi ficant amount of Imodium just potentially and back in the hospital with same problem ongoing bleeding and potential for flare of ischemic colitis. This could even just be hemorrhoidal type bleeding and a flare of her microscopic colitis. This could be infectious colitis or even development of inflamm atory bowel disease. Endoscopy would help differentiate these things. She has been declining the pr ocedure after this point; however, she is willing now to follow through with colonoscopy. She is wor ried about tolerating the bowel prep. At worst case , if she is unable to take the prep, then we spencer l treat with enemas and at least get a sigmoidoscopy done. RECOMMENDATIONS: 1. We will give a bowel prep very slowly through the day today. 2. Plan colonoscopy tomorrow. 3. She is receiving potassium IV.
[2018-03-17] MEDS: 1/2 NS w/KCL 20 mEq 1,000 ML IV SCH (13:38)
--- NOTE | 2018-03-17 15:45 | PDOC.PN ---
- Subjective Encounter Start Date: 03/17/18 Encounter Start Time: 15:43 Subjective: reports more diarrhea and blood [place]. -: feels weak and dizzy - Objective Resuscitation Status: Resuscitation Status FULL:Full Resuscitation MAR Reviewed: Yes Vital Signs & Weight: Vital Signs (12 hours) Temp Pulse Resp BP Pulse Ox 03/17/18 07:34 98.5 F 105 H 16 108/78 95 03/17/18 07:22 98.4 F 105 H 16 Weight Admit Weight 162 lb Weight 162 lb I&O: 03/16/18 03/17/18 03/18/18 06:59 06:59 06:59 Intake Total 1430 1605 Balance 1430 1605 Result Diagrams: 03/18/18 04:27 03/18/18 04:27 Additional Labs: labs reviewed Phys Exam - Physical Examination Constitutional: NAD HEENT: PERRLA, moist MMs, sclera anicteric, oral pharynx no lesions Neck: no nodes, no JVD, supple, full ROM Respiratory: no wheezing, no rales, no rhonchi, clear to auscultation bilateral Cardiovascular: RRR, no significant murmur, no rub Gastrointestinal: soft, non-tender, no distention, positive bowel sounds Musculoskeletal: no edema, pulses present Neurological: non-focal, normal sensation, moves all 4 limbs Psychiatric: normal affect, A&O x 3 Skin: no rash Dx/Plan (1) Ischemic colitis Code(s): K55.9 - VASCULAR DISORDER OF INTESTINE, UNSPECIFIED Status: Acute (2) Hypokalemia Code(s): E87.6 - HYPOKALEMIA Status: Acute (3) Hypomagnesemia Code(s): E83.42 - HYPOMAGNESEMIA Status: Acute (4) Bloody diarrhea Code(s): R19.7 - DIARRHEA, UNSPECIFIED Status: Resolved Comment: Likley infectious componenet Vs Internal hemorrhoids (5) Microscopic colitis Code(s): K52.839 - MICROSCOPIC COLITIS, UNSPECIFIED Status: Chronic Comment : controlled on Budesonide - Plan plan discussed w/ family, continue antibiotics, PT/OT, out of bed/ambulate, DVT proph w/SCDs discussed w GI .will prep for colonoscopy slowly for tomorrow, -: cont ABx.Suspect IBD given h/o PBC -: H/H stable. -: replace and recheck Potassium and Magnesium -: am labs * . Review of Systems - Review of Systems Constitutional: weakness, malaise. negative: fever, chills, sweats, other ENT: negative: Ear Pain, Ear Discharge, Nose Pain, Nose Discharge, Nose Congestion, Mouth Pain, Mouth Swelling, Throat Pain, Throat Swelling, Other Respiratory: negative: Cough, Dry, Shortness of Breath, Hemoptysis, SOB with Excertion, Pleuritic Pain, Sputum, Wheezing Cardiovascular: negative: chest pain, palpitations, orthopnea, paroxysmal nocturnal dyspnea, edema, light headedness, other Gastrointestinal: Diarrhea, Hematochezia. negative: Nausea, Vomiting, Abdominal Pain, Constipation, Melena, Other Genitourinary: negative: Dysuria, Frequency, Incontinence, Hematuria, Retention , Other Musculoskeletal: negative: Neck Pain, Shoulder Pain, Arm Pain, Back Pain, Hand Pain, Leg Pain, Foot Pain, Other Neurological: negative: Weakness, Numbness, Incoordination, Change in Speech, Confusion, Seizures, Other - Medications/Allergies Allergies/Adverse Reactions: Allergies Allergy/AdvReac Type Severity Reaction Status Date / Time clindamycin [From Cleocin] Allergy Verified 03/10/18 13:44 levofloxacin Allergy Verified 03/10/18 13:44 Penicillins Allergy Verified 03/10/18 13:44 polyethylene glycol Allergy Verified 03/10/18 13:44 [From Colyte] polyethylene glycol 3350 Allergy Verified 03/10/18 13:44 [From Colyte] potassium chloride Allergy Verified 03/10/18 13:44 [From Colyte] sodium [From Colyte] Allergy Verified 03/10/18 13:44 sodium bicarbonate Allergy Verified 03/10/18 13:44 [From Colyte] sodium chloride [From Colyte] Allergy Verified 03/10/18 13:44 sodium sulfate [From Colyte] Allergy Verified 03/10/18 13:44 Sulfa (Sulfonamide Allergy Verified 03/10/18 13:44 Antibiotics) Medications: Current Medications Acetaminophen (Tylenol) 650 mg PO Q4H PRN PRN Reason: Headache/Fever or Pain Last Admin: 03/14/18 17:59 Dose: 650 mg Al Hydroxide/Mg Hydroxide (Maalox) 30 ml PO Q6H PRN PRN Reason: Heartburn or Indigestion Benzonatate (Tessalon) 100 mg PO Q4H PRN PRN Reason: Cough Budesonide (Entocort Ec) 9 mg PO QAM [facility] Last Admin: 03/17/18 09:11 Dose: 9 mg Calcium Carbonate (Tums) 1,000 mg PO Q4H PRN PRN Reason: Heartburn or Indigestion Clonidine (Catapres) 0.1 mg PO Q4H PRN PRN Reason: Systolic BP > 150 Diphenoxylate HCl/Atropine (Lomotil) 1 tab PO QIDPRN PRN PRN Reason: Diarrhea/Loose Stools Last Admin: 03/16/18 13:58 Dose: 1 tab Guaifenesin (Robitussin Sf) 200 mg PO Q4H PRN PRN Reason: Cough Hydralazine HCl (Apresoline) 10 mg SLOW IVP Q4H PRN PRN Reason: Systolic BP > 170 Meropenem 1 gm/ Device 50 mls @ 100 mls/hr IVPB 0500,1300,2100 [facility] Last Admin: 03/17/18 14:03 Dose: 50 mls Potassium Chloride/Sodium Chloride (1/2 Ns W/Kcl 20 Meq) 1,000 mls @ 75 mls/hr IV .[id number] [facility] Last Admin: 03/17/18 13:38 Dose: 1,000 mls Loratadine (Claritin) 10 mg PO DAILYPRN PRN PRN Reason: Sinus Symptoms Last Admin: 03/13/18 02:30 Dose: 10 mg Melatonin (Melatonin) 9 mg PO [facility] Last Admin: 03/16/18 22:02 Dose: 9 mg Metronidazole (Flagyl) 500 mg PO TID [facility] Last Admin: 03/17/18 15:30 Dose: 500 mg Nitroglycerin (Nitrostat) 0.4 mg SL Q5MIN PRN PRN Reason: Chest Pain Ondansetron HCl (Zofran) 4 mg IVP Q6H PRN PRN Reason: Nausea/Vomiting Last Admin: 03/13/18 00:59 Dose: 4 mg Pantoprazole Sodium (Protonix) 40 mg IVP Q12HR [facility] Last Admin: 03/17/18 09:13 Dose: 40 mg Triazolam [Triazolam (] 2 Tab) 2 each PO [facility] Polyethylene Glycol/Electrolytes (Golytely) 4,000 ml PO ONE [facility] Stop: 03/17/18 22:00 Last Admin: 03/17/18 13:55 Dose: 4,000 ml Potassium Chloride (K-Dur) 40 meq PO QAM-WM [facility] Last Admin: 03/17/18 09:11 Dose: 40 meq Saccharomyces Boulardii (Florastor) 250 mg PO DAILY [facility] Last Admin: 03/17/18 09:11 Dose: 250 mg Sodium Chloride (Flush - Normal Saline) 10 ml IVF Q12HR [facility] Last Admin: 03/17/18 09:16 Dose: 10 ml Sodium Chloride (Flush - Normal Saline) 10 ml IVF PRN PRN PRN Reason: Saline Flush Tramadol HCl (Ultram) 50 mg PO Q4H PRN PRN Reason: Moderate Pain (4-6) Last Admin: 03/13/18 13:16 Dose: 50 mg
[2018-03-17] MEDS: Melatonin 3 MG TAB PO SCH (21:54)
[2018-03-18] MEDS: 1/2 NS w/KCL 20 mEq 1,000 ML IV SCH ×2 (03:40→11:29)
[2018-03-18 05:23] LABS: Hemoglobin 13.1 g/dL (12.0-16.0)
[2018-03-18 05:44] LABS: Anion Gap 10 mmol/L (10-20); BUN (Urea Nitrogen) 4 mg/dL (9.8-20.1); Calc. Creatinine Clearance 112 mL/min (70-130); Calcium 7.4 mg/dL (7.8-10.44); Carbon Dioxide 26 mmol/L (23-31); Chloride 104 mmol/L (98-107); Estimated GFR-MDRD Greater than 90; Glucose 94 mg/dL (83-110); Magnesium 1.7 mg/dL (1.6-2.6); Potassium 3.2 mmol/L (3.5-5.1); Sodium 137 mmol/L (136-145)
[2018-03-18] MEDS: MEROPENEM 1 GM/50 ML 1 GM in Premix Bag 1 BAG IVPB SCH ×3 (05:45→20:30)
[2018-03-18] MEDS: Pantoprazole 40 MG VIAL IVP SCH ×2 (09:36→20:32)
[2018-03-18] MEDS: metroNIDAZOLE 500 MG TAB PO SCH ×3 (09:36→20:28)
[2018-03-18] MEDS: Potassium Chloride 20 MEQ TAB PO SCH (09:36)
[2018-03-18] MEDS: Saccharomyces boulardii 250 MG CAP PO SCH (09:36)
[2018-03-18] MEDS ORDERED: Lidocaine 1% PF 5 ML VIAL ONE (12:59)
[2018-03-18] MEDS ORDERED: PROPOFOL 200 MG/20 ML VIAL ONE (12:59)
[2018-03-18] MEDS ORDERED: Promethazine HCl 25 MG/ML VIAL SLOW IVP PRN (15:06)
[2018-03-18] MEDS ORDERED: Ondansetron HCl/PF 4 MG/2 ML Vial IVP PRN (15:06)
[2018-03-18] MEDS ORDERED: Promethazine HCl 25 MG/ML VIAL IM PRN (15:06)
--- NOTE | 2018-03-18 16:20 | PDOC.PN ---
- Subjective Encounter Start Date: 03/18/18 Encounter Start Time: 16:18 (late entry) Subjective: seen prior to Colonoscopy -: still w AP,malaise and blood [place] - Objective Resuscitation Status: Resuscitation Status FULL:Full Resuscitation MAR Reviewed: Yes Vital Signs & Weight: Vital Signs (12 hours) Temp Pulse Resp BP Pulse Ox 03/18/18 07:44 97.5 F L 94 16 121/80 95 03/18/18 07:39 98.8 F 97 20 Weight Admit Weight 162 lb Weight 162 lb I&O: 03/17/18 03/18/18 03/19/18 06:59 06:59 06:59 Intake Total 1605 3100 Balance 1605 3100 Result Diagrams: 03/18/18 04:27 03/18/18 04:27 Additional Labs: labs reviewed Phys Exam - Physical Examination Constitutional: NAD HEENT: PERRLA, moist MMs, sclera anicteric, oral pharynx no lesions Neck: no nodes, no JVD, supple, full ROM Respiratory: no wheezing, no rales, no rhonchi Cardiovascular: RRR, no significant murmur, no rub Gastrointestinal: soft, no distention, positive bowel sounds TTP Musculoskeletal: no edema, pulses present Neurological: non-focal, normal sensation, moves all 4 limbs Psychiatric: normal affect, A&O x 3 Skin: no rash Dx/Plan (1) Ischemic colitis Code(s): K55.9 - VASCULAR DISORDER OF INTESTINE, UNSPECIFIED Status: Acute Comment: Colonoscopy today (2) Hypokalemia Code(s): E87.6 - HYPOKALEMIA Status: Acute Comment: Cont to monitor. replace prn (3) Hypomagnesemia Code(s): E83.42 - HYPOMAGNESEMIA Status: Acute (4) Bloody diarrhea Code(s): R19.7 - DIARRHEA, UNSPECIFIED Status: Resolved Comment: Likley infectious componenet Vs Internal hemorrhoids (5) Microscopic colitis Code(s): K52.839 - MICROSCOPIC COLITIS, UNSPECIFIED Status: Chronic Comment : controlled on Budesonide - Plan plan discussed w/ family, continue antibiotics, PT/OT, out of bed/ambulate Cont IVF for now.Colonoscopy later-follow results -: cont empiric ABx for possible infectious colitis -: Supportive care. -: am labs ,monitor lytes * . Review of Systems - Review of Systems Constitutional: weakness, malaise. negative: fever, chills, sweats, other Eyes: negative: Pain, Vision Change, Conjunctivae Inflammation, Eyelid Inflammation, Redness, Other Respiratory: negative: Cough, Dry, Shortness of Breath, Hemoptysis, SOB with Excertion, Pleuritic Pain, Sputum, Wheezing Cardiovascular: negative: chest pain, palpitations, orthopnea, paroxysmal nocturnal dyspnea, edema, light headedness, other Gastrointestinal: Nausea, Abdominal Pain, Hematochezia. negative: Vomiting, Diarrhea, Constipation, Melena, Other Genitourinary: negative: Dysuria, Frequency, Incontinence, Hematuria, Retention , Other Musculoskeletal: negative: Neck Pain, Shoulder Pain, Arm Pain, Back Pain, Hand Pain, Leg Pain, Foot Pain, Other Skin: negative: Rash, Lesions, Lex, Bruising, Other Neurological: negative: Weakness, Numbness, Incoordination, Change in Speech, Confusion, Seizures, Other - Medications/Allergies Allergies/Adverse Reactions: Allergies Allergy/AdvReac Type Severity Reaction Status Date / Time clindamycin [From Cleocin] Allergy Verified 03/10/18 13:44 levofloxacin Allergy Verified 03/10/18 13:44 Penicillins Allergy Verified 03/10/18 13:44 polyethylene glycol Allergy Verified 03/10/18 13:44 [From Colyte] polyethylene glycol 3350 Allergy Verified 03/10/18 13:44 [From Colyte] potassium chloride Allergy Verified 03/10/18 13:44 [From Colyte] sodium [From Colyte] Allergy Verified 03/10/18 13:44 sodium bicarbonate Allergy Verified 03/10/18 13:44 [From Colyte] sodium chloride [From Colyte] Allergy Verified 03/10/18 13:44 sodium sulfate [From Colyte] Allergy Verified 03/10/18 13:44 Sulfa (Sulfonamide Allergy Verified 03/10/18 13:44 Antibiotics) Medications: Current Medications Acetaminophen (Tylenol) 650 mg PO Q4H PRN PRN Reason: Headache/Fever or Pain Last Admin: 03/14/18 17:59 Dose: 650 mg Al Hydroxide/Mg Hydroxide (Maalox) 30 ml PO Q6H PRN PRN Reason: Heartburn or Indigestion Benzonatate (Tessalon) 100 mg PO Q4H PRN PRN Reason: Cough Budesonide (Entocort Ec) 9 mg PO QAM [facility] Last Admin: 03/18/18 09:36 Dose: 9 mg Calcium Carbonate (Tums) 1,000 mg PO Q4H PRN PRN Reason: Heartburn or Indigestion Clonidine (Catapres) 0.1 mg PO Q4H PRN PRN Reason: Systolic BP > 150 Diphenoxylate HCl/Atropine (Lomotil) 1 tab PO QIDPRN PRN PRN Reason: Diarrhea/Loose Stools Last Admin: 03/16/18 13:58 Dose: 1 tab Guaifenesin (Robitussin Sf) 200 mg PO Q4H PRN PRN Reason: Cough Hydralazine HCl (Apresoline) 10 mg SLOW IVP Q4H PRN PRN Reason: Systolic BP > 170 Meropenem 1 gm/ Device 50 mls @ 100 mls/hr IVPB 0500,1300,2100 [facility] Last Admin: 03/18/18 12:25 Dose: 50 mls Potassium Chloride/Sodium Chloride (1/2 Ns W/Kcl 20 Meq) 1,000 mls @ 75 mls/hr IV .[id number] [facility] Last Admin: 03/18/18 11:29 Dose: 1,000 mls Loratadine (Claritin) 10 mg PO DAILYPRN PRN PRN Reason: Sinus Symptoms Last Admin: 03/13/18 02:30 Dose: 10 mg Melatonin (Melatonin) 9 mg PO [facility] Last Admin: 03/17/18 21:54 Dose: 9 mg Mesalamine (Pentasa) 1,000 mg PO QID [facility] Methylprednisolone Sodium Succinate (Solu-Medrol) 20 mg IVP Q8HR [facility] Metronidazole (Flagyl) 500 mg PO TID [facility] Last Admin: 03/18/18 09:36 Dose: 500 mg Nitroglycerin (Nitrostat) 0.4 mg SL Q5MIN PRN PRN Reason: Chest Pain Ondansetron HCl (Zofran) 4 mg IVP Q6H PRN PRN Reason: Nausea/Vomiting Last Admin: 03/13/18 00:59 Dose: 4 mg Ondansetron HCl (Pacu-Zofran) 4 mg IVP ONE PRN PRN Reason: Nausea/Vomiting Stop: 03/18/18 18:06 Pantoprazole Sodium (Protonix) 40 mg IVP Q12HR [facility] Last Admin: 03/18/18 09:36 Dose: 40 mg Triazolam [Triazolam (] 2 Tab) 2 each PO [facility] Potassium Chloride (K-Dur) 40 meq PO QAM-WM [facility] Last Admin: 03/18/18 09:36 Dose: 40 meq Promethazine HCl (Pacu-Phenergan) 6.25 mg SLOW IVP ONE PRN PRN Reason: Nausea/Vomiting Stop: 03/18/18 18:06 Promethazine HCl (Pacu-Phenergan) 6.25 mg IM ONE PRN PRN Reason: Nausea/Vomiting Stop: 03/18/18 18:06 Saccharomyces Boulardii (Florastor) 250 mg PO DAILY [facility] Last Admin: 03/18/18 09:36 Dose: 250 mg Sodium Chloride (Flush - Normal Saline) 10 ml IVF Q12HR [facility] Last Admin: 03/18/18 09:37 Dose: 10 ml Sodium Chloride (Flush - Normal Saline) 10 ml IVF PRN PRN PRN Reason: Saline Flush Tramadol HCl (Ultram) 50 mg PO Q4H PRN PRN Reason: Moderate Pain (4-6) Last Admin: 03/13/18 13:16 Dose: 50 mg
--- NOTE | 2018-03-18 19:17 | OP ---
PREOPERATIVE DIAGNOSIS: Gastrointestinal bleed. PROCEDURE: After informed consent was obtained, the patient was placed in the left lateral decubitus position. Anesthesia was administered per the Anesthesia Department. Forward-viewing endoscope was inserted into the rectum after perianal inspection and rectal exam revealed external hemorrhoids and passed to the cecum with ease. Cecum, ileocecal valve and appendiceal or pus were normal. The prep was good. In the right colon, some granularity was noted, but this was slightly patchy until the he patic flexure, there from the rectum was severe circumferential diffuse colitis in the form of granul arity, loss of vascularity. Biopsies were taken from both the right and left colon. Left-sided dive rticula were noted as well. ASSESSMENT: 1. Severe colitis involving transverse, descending, sigmoid, and rectum consistent with ulcerative c olitis, less likely Crohn's disease - status post biopsy. 2. Left-sided diverticulosis coli. 3. Internal and external hemorrhoids. RECOMMENDATIONS: 1. Await histopathology. 2. Mesalamine. 3. IV steroids.
[2018-03-18] MEDS: MESALAMINE 500 MG PO SCH (20:29)
[2018-03-18] MEDS: Melatonin 3 MG TAB PO SCH (20:30)
[2018-03-19] MEDS: MEROPENEM 1 GM/50 ML 1 GM in Premix Bag 1 BAG IVPB SCH ×2 (05:14→14:11)
[2018-03-19 05:27] LABS: Anion Gap 15 mmol/L (10-20); BUN (Urea Nitrogen) Less than 4 mg/dL (9.8-20.1); Calc. Creatinine Clearance 101 mL/min (70-130); Calcium 7.5 mg/dL (7.8-10.44); Carbon Dioxide 21 mmol/L (23-31); Chloride 101 mmol/L (98-107); Estimated GFR-MDRD Greater than 90; Glucose 115 mg/dL (83-110); Magnesium 1.8 mg/dL (1.6-2.6); Sodium 133 mmol/L (136-145)
[2018-03-19 06:10] LABS: Band 24 % (5-11); Eosinophils 1 % (0-10); Hemoglobin 14.3 g/dL (12.0-16.0); Lymphocytes 8 % (21-51); MDiff Complete? YES; Mean Corpuscular HGB CONC 31.7 g/dL (32.0-36.0); Mean Corpuscular Hemoglobin 33.5 pg (27.0-31.0); Mean Platelet Volume 7.5 fL (7.4-10.4); Monocytes 1 % (0-10); Myelocyte 1 % (0-0); Neutrophil 65 % (42-75); Platelet Count 240 thou/uL (130-400); RBC Distribution Width 13.3 % (11.5-14.5); Red Blood Cell (RBC) Count 4.28 mill/uL (4.20-5.40); White Blood Cell (WBC) Count 8.9 thou/uL (4.8-10.8)
[2018-03-19] MEDS: Potassium Chloride 20 MEQ TAB PO SCH (08:24)
[2018-03-19] MEDS: metroNIDAZOLE 500 MG TAB PO SCH (08:25)
[2018-03-19] MEDS: Saccharomyces boulardii 250 MG CAP PO SCH (08:25)
[2018-03-19] MEDS: Pantoprazole 40 MG VIAL IVP SCH (08:26)
[2018-03-19] MEDS: MESALAMINE 500 MG PO SCH ×4 (08:36→21:38)
[2018-03-19] MEDS: Diphenoxylate HCl/Atropine Tablet PO PRN (10:52)
--- NOTE | 2018-03-19 13:11 | PDOC.PN ---
- Subjective Encounter Start Date: 03/19/18 Encounter Start Time: 11:00 Subjective: still has diarrhea but better -: and family at bedside - Objective Resuscitation Status: Resuscitation Status FULL:Full Resuscitation MAR Reviewed: Yes Vital Signs & Weight: Vital Signs (12 hours) Temp Pulse Resp BP Pulse Ox 03/19/18 08:36 97.7 F 104 H 16 03/19/18 07:35 97.7 F 104 H 16 135/76 95 Weight Admit Weight 162 lb Weight 162 lb I&O: 03/18/18 03/19/18 03/20/18 06:59 06:59 06:59 Intake Total 3100 1390 Balance 3100 1390 Result Diagrams: 03/19/18 04:13 03/19/18 04:13 Phys Exam - Physical Examination HEENT: PERRLA, moist MMs Neck: no JVD, supple Respiratory: no wheezing, no rales Cardiovascular: RRR, no significant murmur Gastrointestinal: soft, non-tender, no distention, positive bowel sounds Musculoskeletal: no edema, pulses present Neurological: non-focal, moves all 4 limbs Dx/Plan (1) Ulcerative colitis Code(s): K51.90 - ULCERATIVE COLITIS, UNSPECIFIED, WITHOUT COMPLICATIONS Status: Suspected Qualifiers: Ulcerative colitis location: ulcerative pancolitis Digestive disease complication type: with rectal bleeding Qualified Code(s): K51.011 - Ulcerative (chronic) pancolitis with rectal bleeding (2) Physical deconditioning Code(s): R53.81 - OTHER MALAISE Status: Acute (3) Dyslipidemia Code(s): E78.5 - HYPERLIPIDEMIA, UNSPECIFIED Status: Chronic - Plan is on meropenem -: solumedrol and mesalamine, await bx results -: walking program to ambulate as tolerated -: encourage po intake -: GI is following in hospital, ?biological agent * . Review of Systems - Medications/Allergies Allergies/Adverse Reactions: Allergies Allergy/AdvReac Type Severity Reaction Status Date / Time clindamycin [From Cleocin] Allergy Verified 03/10/18 13:44 levofloxacin Allergy Verified 03/10/18 13:44 Penicillins Allergy Verified 03/10/18 13:44 polyethylene glycol Allergy Verified 03/10/18 13:44 [From Colyte] polyethylene glycol 3350 Allergy Verified 03/10/18 13:44 [From Colyte] potassium chloride Allergy Verified 03/10/18 13:44 [From Colyte] sodium [From Colyte] Allergy Verified 03/10/18 13:44 sodium bicarbonate Allergy Verified 03/10/18 13:44 [From Colyte] sodium chloride [From Colyte] Allergy Verified 03/10/18 13:44 sodium sulfate [From Colyte] Allergy Verified 03/10/18 13:44 Sulfa (Sulfonamide Allergy Verified 03/10/18 13:44 Antibiotics) Medications: Current Medications Acetaminophen (Tylenol) 650 mg PO Q4H PRN PRN Reason: Headache/Fever or Pain Last Admin: 03/14/18 17:59 Dose: 650 mg Al Hydroxide/Mg Hydroxide (Maalox) 30 ml PO Q6H PRN PRN Reason: Heartburn or Indigestion Benzonatate (Tessalon) 100 mg PO Q4H PRN PRN Reason: Cough Budesonide (Entocort Ec) 9 mg PO QAM [facility] Last Admin: 03/19/18 08:54 Dose: 9 mg Calcium Carbonate (Tums) 1,000 mg PO Q4H PRN PRN Reason: Heartburn or Indigestion Clonidine (Catapres) 0.1 mg PO Q4H PRN PRN Reason: Systolic BP > 150 Diphenoxylate HCl/Atropine (Lomotil) 1 tab PO QIDPRN PRN PRN Reason: Diarrhea/Loose Stools Last Admin: 03/19/18 10:52 Dose: 1 tab Guaifenesin (Robitussin Sf) 200 mg PO Q4H PRN PRN Reason: Cough Hydralazine HCl (Apresoline) 10 mg SLOW IVP Q4H PRN PRN Reason: Systolic BP > 170 Meropenem 1 gm/ Device 50 mls @ 100 mls/hr IVPB 0500,1300,2100 [facility] Last Admin: 03/19/18 05:14 Dose: 50 mls Loratadine (Claritin) 10 mg PO DAILYPRN PRN PRN Reason: Sinus Symptoms Last Admin: 03/13/18 02:30 Dose: 10 mg Melatonin (Melatonin) 9 mg PO HS [facility] Last Admin: 03/18/18 20:30 Dose: 9 mg Mesalamine (Pentasa) 1,000 mg PO QID [facility] Last Admin: 03/19/18 08:36 Dose: 1,000 mg Methylprednisolone Sodium Succinate (Solu-Medrol) 20 mg IVP Q8HR [facility] Last Admin: 03/19/18 05:14 Dose: 20 mg Nitroglycerin (Nitrostat) 0.4 mg SL Q5MIN PRN PRN Reason: Chest Pain Ondansetron HCl (Zofran) 4 mg IVP Q6H PRN PRN Reason: Nausea/Vomiting Last Admin: 03/13/18 00:59 Dose: 4 mg Pantoprazole Sodium (Protonix) 40 mg PO DAILY [facility] Triazolam [Triazolam (] 2 Tab) 2 each PO [facility] Potassium Chloride (K-Dur) 40 meq PO QAM-WM [facility] Last Admin: 03/19/18 08:24 Dose: 40 meq Saccharomyces Boulardii (Florastor) 250 mg PO DAILY [facility] Last Admin: 03/19/18 08:25 Dose: 250 mg Sodium Chloride (Flush - Normal Saline) 10 ml IVF Q12HR [facility] Last Admin: 03/19/18 08:37 Dose: 10 ml Sodium Chloride (Flush - Normal Saline) 10 ml IVF PRN PRN PRN Reason: Saline Flush Tramadol HCl (Ultram) 50 mg PO Q4H PRN PRN Reason: Moderate Pain (4-6) Last Admin: 03/13/18 13:16 Dose: 50 mg
--- NOTE | 2018-03-19 17:05 | PRG ---
DATE OF SERVICE: 03/19/2018 GASTROENTEROLOGY PROGRESS NOTE SUBJECTIVE: Ms. Chandra feels better today after starting IV steroids yesterday. She has had no f urther blood in the stool. She has fewer bowel movements. She has still had some episodes of diarrh ea with loss of continence. OBJECTIVE: VITAL SIGNS: Temperature 97.7, pulse 104, blood pressure 135/76. GENERAL: She is in no acute distress, alert and oriented x3. LUNGS: Clear to auscultation bilaterally. HEART: Regular rate and rhythm. ABDOMEN: Soft, nontender and nondistended. Bowel sounds are present. EXTREMITIES: No lower extremity edema. LABORATORY DATA: White blood cell count 8.9, hemoglobin 14.3, platelets 240, creatinine 0.49. IMPRESSION: 1. Ulcerative colitis. Colonoscopy yesterday shows evidence of severe chronic ulcerative colitis in volving the transverse, descending, sigmoid, and rectum. Biopsies were taken and are pending. She w as started on IV Solu-Medrol with improvement. She will ultimately require chronic immunosuppressive s to treat this. She has been on budesonide chronically treating microscopic colitis by previous GI in [place]. This has been inadequate to control her symptoms. At this point, we will probably transiti on to prednisone tomorrow and then work on approval for Entyvio or another biologic. In the meantime , we will check Quantiferon and viral hepatitis B serology. 2. We should be able to stop antibiotics at this point. 3. She is tolerating a solid diet. 4. Await histopathology.
[2018-03-19 17:53] LABS: HBSAg Index 0.18 S/CO (0-0.99); HIV (1/2) Antibody/Antigen Non-Reactive (NonReactive); HIV 1/2 INDEX 0.06 S/CO (<1.00); Hep B Core Total Ab Non-Reactive (NonReactive); Hep B Core Total Index 0.21 S/CO (0-0.79); Hep B Surf AB Non-Reactive (NonReactive); Hep B Surf Ag Non-Reactive S/CO (NonReactive); Hep C IgG Ab Non-Reactive (NonReactive); Hep C Index 0.21 S/CO (0-0.79)
[2018-03-19] MEDS: Melatonin 3 MG TAB PO SCH (21:38)
[2018-03-20 04:56] LABS: #Eosinphils 0.2 thou/uL (0.0-0.7); #Lymphocytes 1.8 thou/uL (1.20-3.40); #Monocytes 1.5 thou/uL (0.11-0.59); #Neutrophils 9.2 thou/uL (1.40-6.50); %Basophils 0.1 % (0.0-1.0); %Eosinophils 1.4 % (0.0-10.0); %Lymphocytes 14.5 % (21.0-51.0); %Monocytes 11.8 % (0.0-10.0); %Neutrophils 72.2 % (42.0-75.0); Hemoglobin 12.5 g/dL (12.0-16.0); Mean Corpuscular HGB CONC 34.1 g/dL (32.0-36.0); Mean Corpuscular Hemoglobin 34.5 pg (27.0-31.0); Mean Platelet Volume 8.4 fL (7.4-10.4); Platelet Count 160 thou/uL (130-400); RBC Distribution Width 13.3 % (11.5-14.5); Red Blood Cell (RBC) Count 3.62 mill/uL (4.20-5.40); White Blood Cell (WBC) Count 12.7 thou/uL (4.8-10.8)
[2018-03-20] MEDS ORDERED: predniSONE 20 MG TAB PO SCH (08:00)
[2018-03-20] MEDS: Potassium Chloride 20 MEQ TAB PO SCH (08:29)
[2018-03-20] MEDS: Saccharomyces boulardii 250 MG CAP PO SCH (08:29)
[2018-03-20 08:30] LABS: Chloride 103 mmol/L (98-107); Magnesium 1.7 mg/dL (1.6-2.6); Potassium 3.4 mmol/L (3.5-5.1); Sodium 136 mmol/L (136-145)
[2018-03-20 08:31] LABS: Calcium 7.6 mg/dL (7.8-10.44); Glucose 117 mg/dL (83-110)
[2018-03-20 08:33] LABS: Anion Gap 6 mmol/L (10-20); Carbon Dioxide 30 mmol/L (23-31)
[2018-03-20 08:35] LABS: BUN (Urea Nitrogen) 9 mg/dL (9.8-20.1); Calc. Creatinine Clearance 107 mL/min (70-130); Estimated GFR-MDRD Greater than 90
--- NOTE | 2018-03-20 10:50 | PDOC.PN ---
- Subjective Encounter Start Date: 03/20/18 Encounter Start Time: 09:00 Subjective: no diarrhea from last night, feels better -: no nausea, is eating well per daughter at bedside - Objective Resuscitation Status: Resuscitation Status FULL:Full Resuscitation MAR Reviewed: Yes Vital Signs & Weight: Vital Signs (12 hours) Temp Pulse Resp BP BP Pulse Ox 03/20/18 08:00 98.3 F 75 16 114/70 93 L 03/20/18 00:49 91 112/78 Weight Admit Weight 162 lb Weight 162 lb I&O: 03/19/18 03/20/18 03/21/18 06:59 06:59 06:59 Intake Total 1390 1850 Balance 1390 1850 Result Diagrams: 03/20/18 04:15 03/20/18 08:01 Phys Exam - Physical Examination HEENT: PERRLA, sclera anicteric Neck: no JVD, supple Respiratory: no wheezing, no rales Cardiovascular: RRR, no significant murmur Gastrointestinal: soft, no distention, positive bowel sounds Musculoskeletal: no edema, pulses present Neurological: non-focal, moves all 4 limbs Dx/Plan (1) Ulcerative colitis Code(s): K51.90 - ULCERATIVE COLITIS, UNSPECIFIED, WITHOUT COMPLICATIONS Status: Suspected Qualifiers: Ulcerative colitis location: ulcerative pancolitis Digestive disease complication type: with rectal bleeding Qualified Code(s): K51.011 - Ulcerative (chronic) pancolitis with rectal bleeding (2) Physical deconditioning Code(s): R53.81 - OTHER MALAISE Status: Acute (3) Dyslipidemia Code(s): E78.5 - HYPERLIPIDEMIA, UNSPECIFIED Status: Chronic - Plan await path results -: is on prednisone and mesalamine -: may dc home if ok with GI -: has been amb with family in [facility] -: will need HH with PT on discharge * . Review of Systems - Medications/Allergies Allergies/Adverse Reactions: Allergies Allergy/AdvReac Type Severity Reaction Status Date / Time clindamycin [From Cleocin] Allergy Verified 03/10/18 13:44 levofloxacin Allergy Verified 03/10/18 13:44 Penicillins Allergy Verified 03/10/18 13:44 polyethylene glycol Allergy Verified 03/10/18 13:44 [From Colyte] polyethylene glycol 3350 Allergy Verified 03/10/18 13:44 [From Colyte] potassium chloride Allergy Verified 03/10/18 13:44 [From Colyte] sodium [From Colyte] Allergy Verified 03/10/18 13:44 sodium bicarbonate Allergy Verified 03/10/18 13:44 [From Colyte] sodium chloride [From Colyte] Allergy Verified 03/10/18 13:44 sodium sulfate [From Colyte] Allergy Verified 03/10/18 13:44 Sulfa (Sulfonamide Allergy Verified 03/10/18 13:44 Antibiotics) Medications: Current Medications Acetaminophen (Tylenol) 650 mg PO Q4H PRN PRN Reason: Headache/Fever or Pain Last Admin: 03/14/18 17:59 Dose: 650 mg Al Hydroxide/Mg Hydroxide (Maalox) 30 ml PO Q6H PRN PRN Reason: Heartburn or Indigestion Benzonatate (Tessalon) 100 mg PO Q4H PRN PRN Reason: Cough Budesonide (Entocort Ec) 9 mg PO QAM [facility] Last Admin: 03/20/18 08:29 Dose: 9 mg Calcium Carbonate (Tums) 1,000 mg PO Q4H PRN PRN Reason: Heartburn or Indigestion Clonidine (Catapres) 0.1 mg PO Q4H PRN PRN Reason: Systolic BP > 150 Diphenoxylate HCl/Atropine (Lomotil) 1 tab PO QIDPRN PRN PRN Reason: Diarrhea/Loose Stools Last Admin: 03/19/18 10:52 Dose: 1 tab Guaifenesin (Robitussin Sf) 200 mg PO Q4H PRN PRN Reason: Cough Hydralazine HCl (Apresoline) 10 mg SLOW IVP Q4H PRN PRN Reason: Systolic BP > 170 Loratadine (Claritin) 10 mg PO DAILYPRN PRN PRN Reason: Sinus Symptoms Last Admin: 03/13/18 02:30 Dose: 10 mg Melatonin (Melatonin) 9 mg PO HS [facility] Last Admin: 03/19/18 21:38 Dose: 9 mg Mesalamine (Pentasa) 1,000 mg PO QID [facility] Last Admin: 03/20/18 08:28 Dose: 1,000 mg Nitroglycerin (Nitrostat) 0.4 mg SL Q5MIN PRN PRN Reason: Chest Pain Ondansetron HCl (Zofran) 4 mg IVP Q6H PRN PRN Reason: Nausea/Vomiting Last Admin: 03/13/18 00:59 Dose: 4 mg Pantoprazole Sodium (Protonix) 40 mg PO DAILY [facility] Last Admin: 03/20/18 08:29 Dose: 40 mg Potassium Chloride (K-Dur) 40 meq PO QAM-WM [facility] Last Admin: 03/20/18 08:29 Dose: 40 meq Prednisone (Prednisone) 40 mg PO QAM-[facility] Last Admin: 03/20/18 08:29 Dose: 40 mg Saccharomyces Boulardii (Florastor) 250 mg PO DAILY [facility] Last Admin: 03/20/18 08:29 Dose: 250 mg Sodium Chloride (Flush - Normal Saline) 10 ml IVF Q12HR [facility] Last Admin: 03/20/18 08:30 Dose: 10 ml Sodium Chloride (Flush - Normal Saline) 10 ml IVF PRN PRN PRN Reason: Saline Flush Tramadol HCl (Ultram) 50 mg PO Q4H PRN PRN Reason: Moderate Pain (4-6) Last Admin: 03/13/18 13:16 Dose: 50 mg
[2018-03-20] MEDS: Diphenoxylate HCl/Atropine Tablet PO PRN (11:32)
[2018-03-20] MEDS: Acetaminophen 325 MG TAB PO PRN (17:23)
[2018-03-20 18:45] VITALS: BP 157/85; TEMP 98
[2018-03-21 06:17] LABS: Hepatitis A IgM ABS Negative (Negative); Hepatitis A Total ABS Negative (Negative)
--- NOTE | 2018-03-21 12:13 | DIS ---
DATE OF ADMISSION: 03/10/2018 DATE OF DISCHARGE: 03/20/2018 DISCHARGE DISPOSITION: To home with home health and PT. PRIMARY DISCHARGE DIAGNOSIS: Likely ulcerative colitis with GI bleeding. SECONDARY DISCHARGE DIAGNOSES: Dyslipidemia, deconditioning. PROCEDURES DONE DURING HOSPITALIZATION: The patient had colonoscopy done which showed severe colitis involving transverse, descending, sigmoid, and rectum consistent with ulcerative colitis, left-sided diverticulosis coli was seen, internal and external hemorrhoids were also seen. Histopathology of biopsies obtained on colonoscopy showed chronic active colitis, moderate to vern. No dysplasia or malignancy was seen. No granulomata were seen on the histopathology. Discharge H and H 12 and 36, platelet count 160. Hepatitis panel was nonreactive. HIV 1 and 2 nonreactive. Stool for Clostridium difficile, Campylobacter, Shiga toxins were all negative. INPATIENT CONSULTS: Dr. Dinh Francis for Gastroenterology. DISCHARGE PLAN: Patient to follow up with Dr. Francis in 2-3 weeks and primary care physician in 1 week. BRIEF COURSE DURING HOSPITALIZATION: Patient initially got admitted on the with complaints of frequent stools with blood and mucus mixed. She also had a temperature of 100 degrees. In view of this history, the patient was admitted to medical floor. She had initial stool workup for infectious agents being negative. She had known history of microscopic colitis and was on budesonide prior to arrival here. Colonoscopy was done, which showed findings suggestive of ulcerative colitis. She had severe colitis of entire left colon along with sigmoid and rectum as well. The histopathology is also suggestive of ulcerative colitis. The patient was started on mesalamine and IV steroids. She has been transitioned to oral prednisone. The patient needs to continue prednisone for a total of 5 weeks. This is a tapering dose starting at 40 mg daily. She is also on mesalamine [address] Dinh Francis will be following up with the patient in 2-3 weeks for possible steroid sparing biologic agent. Prior to discharge, the patient is ambulating and tolerating oral solid diet. Please see a [id number] documentation on [facility] for the day of discharge. [facility]
== END 2018-03-20 18:44 | disposition home health service (06) | DRG 871 ==
LOC: 2NO 13:18 → T4-B 03-11 16:39
PROVIDERS: ADMIT Internal Medicine; ATTEND Internal Medicine
PROC: 0DBE8ZX Excision of Large Intestine, Via Natural or Artificial Opening Endoscopic, Diagnostic (ICD-10-PCS; principal; 2018-03-18)
DX: A41.9 Sepsis, unspecified organism (principal); R57.1 Hypovolemic shock; K51.90 Ulcerative colitis, unspecified, without complications; K55.9 Vascular disorder of intestine, unspecified; E78.5 Hyperlipidemia, unspecified; K57.30 Diverticulosis of large intestine without perforation or abscess without bleeding; K64.8 Other hemorrhoids; K64.4 Residual hemorrhoidal skin tags; E87.6 Hypokalemia; E83.42 Hypomagnesemia; G47.00 Insomnia, unspecified; Z88.0 Allergy status to penicillin; Z88.2 Allergy status to sulfonamides
CPT/HCPCS: 36415; 80048; 80053; 81001; 81003; 81015; 82274; 83630; 83735; 85014; 85018; 85025; 86480; 86704; 86706; 86709; 86803; 87045; 87046; 87081; 87324; 87328; 87329; 87340; 87389; 87449; 87899; 88305; A4216; C9113; G8978-GP-CK; G8979-GP-CK; G8980-GP-CK; G8987-GO-CI; G8988-GO-CI; G8989-GO-CI; J2001; J2185; J2405; J2704; J2920; J3475; J3480; J7050; J7506

== ENCOUNTER 2018-03-21 13:25 | Inpatient (IN) | payer MEDICARE, OTHER ==
[~2018-03-21 13:25] MED LIST: ISOVUE-370 76%-LOCM 1 ML ONE; Norepinephrine 8 MG/0.9% NS 250 ML ONE
[2018-03-21 14:06] LABS: Bilirubin Negative (Negative); Blood, Urine Negative (Negative); Clarity CLEAR (Clear); Glucose, Urine (Dipstick) Negative (Negative); Leukocyte Negative (Negative); Nitrite Negative (Negative); Protein, Urine (Dipstick) Negative (Neg-Trace); Specific Gravity, Urine 1.008 (1.002-1.036); Urobilinogen 0.2 mg/dL (0.2-1.0)
[2018-03-21 14:17] LABS: Hemoglobin 14.8 g/dL (12.0-16.0); Mean Corpuscular HGB CONC 32.3 g/dL (32.0-36.0); Mean Corpuscular Hemoglobin 32.8 pg (27.0-31.0); Platelet Count 263 thou/uL (130-400); RBC Distribution Width 13.1 % (11.5-14.5); Red Blood Cell (RBC) Count 4.51 mill/uL (4.20-5.40); White Blood Cell (WBC) Count 29.1 thou/uL (4.8-10.8)
[2018-03-21 14:25] LABS: Base Excess-Venous -0.5 mmol/L (0 (+/- 2.5)); Bicarbonate (HCO3v) 22.8 mmol/L (1.0-85.0); CO2 Tension (PvCO2) 33.4 mmHg (41.0-51.0); Calcium, Ionized 0.94 mmol/L (1.12-1.32); Hemoglobin - Calc 16.6 g/dL (12.0-18.0); O2 Tension (PvO2) 64.9 mmHg (35.0-45.0); Potassium 3.2 mmol/L (3.4-4.7); T. Carbon Dioxide 23.9 mmol/L (1.0-85.0); pH (Venous) 7.443 (7.35-7.45); vO2 Saturation-calc 93.4 % (94-98)
[2018-03-21 14:33] LABS: ALT (SGPT) 15 U/L (8-55); AST (SGOT) 28 U/L (5-34); Albumin 2.7 g/dL (3.4-4.8); Alkaline Phosphatase 73 U/L (40-150); Anion Gap 16 mmol/L (10-20); BUN (Urea Nitrogen) 13 mg/dL (9.8-20.1); Bilirubin, Total 0.8 mg/dL (0.2-1.2); Calc. Creatinine Clearance 0 mL/min (70-130); Calcium 7.9 mg/dL (7.8-10.44); Carbon Dioxide 22 mmol/L (23-31); Chloride 104 mmol/L (98-107); Estimated GFR-MDRD 84; Globulin 3.1 g/dL (2.4-3.5); Glucose 140 mg/dL (83-110); Potassium 3.3 mmol/L (3.5-5.1); Protein, Total 5.8 g/dL (6.0-8.3); Sodium 139 mmol/L (136-145)
[2018-03-21 14:35] LABS: Band 15 % (5-11); Giant Platelets SLIGHT; Lymphocytes 6 % (21-51); MDiff Complete? YES; Metamyelocyte 1 % (0-0); Monocytes 7 % (0-10); Myelocyte 1 % (0-0); Neutrophil 68 % (42-75); PLT Morphology Comment Appears Adequate; RBC Morphology Normal; Reactive Lymphocytes 2 % (0-10)
[2018-03-21 14:38] LABS: CKMB 4.8 ng/mL (0-6.6)
[2018-03-21 14:40] LABS: Troponin I 0.319 ng/mL (< 0.028)
[2018-03-21 14:54] LABS: Actual Bicarbonate (HCO3v) 21 mEq/L (22-28); Analyzer IN Cardio ER; Base Excess -3.4 mEq/L (-2.0 to +3.0); pH (venous) 7.389 (7.32-7.43)
[2018-03-21 14:55] LABS: Calcium, Ionized 0.96 mmol/L (1.16-1.32); Chloride (ABG LAB) 102 mmol/L (98-106); Hematocrit-VBG 48.7 % (44.0-64.0); Hemoglobin (Hb) 15.5 g/dL (11.7-16.1); Potassium - ABG Lab 3.9 mmol/L (3.70-5.30); Sodium 136.5 mmol/L (133-146)
--- NOTE | 2018-03-21 14:55 | RAD ---
CHEST 1 VIEW: HISTORY: Cough. FINDINGS: Cardiac silhouette is magnified by projection. Pulmonary vasculature unremarkable. Mediastinum midl ine with aortic calcification. No lobar consolidation. Linear scarring at the lung bases. No evide nce of pneumothorax. IMPRESSION: No active cardiopulmonary abnormalities are demonstrated. POS: [facility]
[2018-03-21] MEDS ORDERED: Digoxin 0.5 MG/2 ML AMP ONE (15:07)
--- NOTE | 2018-03-21 15:58 | CT ---
CT ANGIO CHEST WITH CONTRAST: INDICATIONS: Hypotension. Septic shock. Tachycardia. TECHNIQUE: Multiple axial tomograms obtained through the chest with IV enhancement, following the pulmonary jacque o protocol, with multiplanar reconstruction and 3D post processing. FINDINGS: There is a large saddle-type embolus seen in the left main pulmonary artery, with embolus extending i nto the left upper lobe, middle lobe, and lower lobe pulmonary arteries. There is also a pulmonary embolus in the right upper lobe pulmonary artery, proximally. There are small bilateral pleural effusions. Chronic lung parenchymal changes with interstitial thic kening and stranding in the lung bases. No evidence of adenopathy. Images through the upper abdomen are unremarkable. IMPRESSION: 1. Bilateral pulmonary emboli with a large saddle type embolus in the left main pulmonary artery. 2. There are chronic lung parenchymal changes, as described. Findings were related to the patient's nurse, in the emergency room, at the time of this dictation. CODE CR POS: [facility]
[2018-03-21] MEDS ORDERED: Heparin 25,000 units/D5W 500 ML ONE (16:05)
--- NOTE | 2018-03-21 16:49 | HP ---
PRIMARY CARE PHYSICIAN: Dr. Mendoza Read. REASON FOR ADMISSION: Transfer from other emergency room for hypotension. HISTORY OF PRESENT ILLNESS: An 83-year-old female who has a history of ulcerative colitis who was recently admitted in our hospital on 03/10/2018. During that admission, patient had a colonoscopy by Dr. Daily and found with severe inflammation in the colon involving the transverse, descending, sigmoid, and rectum. Subsequently, pathology report came back as chronic active colitis. During that admission, patient was treated with IV steroid. The patient was discharged yesterday on oral steroid. After discharge, patient was relatively doing okay, but she was having chest pain, shortness of breath, dizziness, and that is why she went to [facility]. Over there, patient was hypotensive, tachycardic. The patient' s blood pressure was 80/40 and that is why they started on Levophed and subsequently patient was sent to our emergency room. The patient had leukocytosis and patient was diagnosed as septic shock. The patient was given broad spectrum antibiotic therapy. Her lactic acid was elevated, her D-dimer was elevated, her BNP was elevated and her lactic acid was elevated. The patient was given Lasix, Rocephin 1 gram and vancomycin. Patient was also given sodium bicarbonate. The patient did not made urine since yesterday. In our emergency room, the patient made little urine output. When she came to our emergency room, the patient's blood pressure was stabilized and ultimately Levophed was turned off, but patient's heart rate was variable from 120-190. The patient was also given IV fluid. The patient did not have any fever. She denies any nausea, vomiting. She denies any diarrhea, hematochezia, melena. She denies any abdominal pain. She reports rib pain. She feels dizzy and weak. Her troponin is significantly elevated. PAST MEDICAL HISTORY: Ulcerative colitis. PAST SURGICAL HISTORY: Tonsillectomy, ovarian surgery, appendicectomy, mastectomy in 1970, cholecystectomy in 1987, left knee surgery, cataract surgery , left total knee replacement in 2013. PAST PSYCHIATRIC HISTORY: Reviewed and negative. SOCIAL HISTORY: Patient is and lives with her . No history of tobacco, alcohol or illicit drug abuse. ALLERGIES: CLINDAMYCIN, LEVOFLOXACIN, PENICILLIN, MIRALAX, SULFONAMIDE. FAMILY HISTORY: Positive for heart attack to her father in late 80s. Otherwise , no strong family history of stroke or other cancer. CURRENT HOME MEDICATIONS: Vitamin C 500 mg p.o. daily, Lipitor 40 mg p.o. at bedtime, budesonide EC 3 capsules p.o. in the morning, calcium with vitamin D 1 tablet p.o. daily, melatonin 10 mg p.o. at bedtime, Pentasa 1000 mg p.o. q.i.d. , multivitamin with iron 1 tablet p.o. daily, omeprazole 20 mg p.o. daily, prednisone was prescribed recently tapering doses, Florastor 250 mg p.o. daily, triazolam 0.5 mg p.o. at bedtime. EMERGENCY ROOM COURSE: At [facility] in [facility] completely reviewed. The patient was given Rocephin, vancomycin, bicarbonate, Lasix, IV fluid. REVIEW OF SYSTEMS: The following complete review of systems was negative, unless otherwise mentioned in the HPI or below: Constitutional: Weight loss or gain, ability to conduct usual activities. Skin: Rash, itching. Eyes: Double vision, pain. ENT/Mouth: Nose bleeding, neck stiffness, pain, tenderness. Cardiovascular: Palpitations, dyspnea on exertion, orthopnea. Respiratory: Shortness of breath, wheezing, cough, hemoptysis, fever or night sweats. Gastrointestinal: Poor appetite, abdominal pain, heartburn, nausea, vomiting, constipation, or diarrhea. Genitourinary: Urgency, frequency, dysuria, nocturia. Musculoskeletal: Pain, swelling. Neurologic/Psychiatric: Anxiety, depression. Allergy/Immunologic: Skin rash, bleeding tendency. Please see my HPI for pertinent positive and negative. All other review of systems reviewed and negative except as mentioned in the HPI. PHYSICAL EXAMINATION: VITAL SIGNS: On arrival here, last blood pressure 116/78, pulse 116-190 variable irregular, respiratory rate 22, saturation 100% on 3 liter oxygen, weight 85 kilograms, temperature 97.4. GENERAL: Patient is currently alert, awake, follows command. No obvious acute distress. HEAD: Normocephalic, atraumatic. EYES: Pupils round, reactive to light. Extraocular muscle intact. ENT: Oropharynx within normal limits. Moist mucous membranes. No oral lesion , no pharyngeal erythema, no exudate. NECK: Supple, no JVD, no thyromegaly, no carotid bruit. LUNGS: Few basal rales noted in no wheezing, no rhonchi, no accessory muscles of respiration in use. CARDIAC: S1, S2, tachycardia, irregular. No murmur elicited, no gallop, no rub. ABDOMEN: Patient does have mild tenderness in the left upper quadrant, no peritoneal sign, no guarding, no rigidity, no rebound, no suprapubic tenderness. BACK: Unremarkable. No CVA tenderness. EXTREMITIES: Upper extremity: Patient does have ecchymosis bilaterally. Range of motion is normal. Lower extremity: Patient does have ecchymosis in the skin bilaterally, edema noted. Good distal pulsation. SKIN: Ecchymosis noted. No other rash. NEUROLOGIC: Nonfocal examination. She is moving all 4 limbs. Plantar bilateral flexor. PSYCHIATRIC: Normal affect. SIGNIFICANT LABORATORY DATA: EKG showing atrial fibrillation with rapid ventricular response. Patient has variable degree of arrhythmia on the monitor. CBC: WBC 29.1, hemoglobin 14.8, MCV 101.0, platelet 263 with bandemia. VBG: A pH 7.44, bicarbonate 22.8, CO2 of 33.4, O2 of 64.9. BMP: Sodium 139, potassium 3.3, chloride 104, carbon dioxide 22, anion gap 16, BUN 13 , creatinine 0.67, glucose 140, calcium 7.9, Lactic acid 4.1. LFT: AST 28, ALT is 15, alkaline phosphatase 73, albumin 2.7, CK-MB 4.8, troponin 0.319, BNP was elevated and D-dimer was elevated at [facility]. Urinalysis normal. Chest x-ray is unremarkable. ASSESSMENT AND PLAN/IMPRESSION: 1. Acute hypotension. Most likely patient's hypotension is related with her atrial tachyarrhythmia, suspected for atrial fibrillation with RVR underlying multifocal atrial tachycardia or multifocal atrial tachycardia cannot be entirely excluded. Patient required Levophed drip momentarily and now the patient's blood pressure is stabilized, but still marginal. We will check random cortisol level. We will check CT angio to rule out PE given recent hospitalization. We will closely monitor in medical ICU. We will consult Pulmonary and Critical Care. We will also consult Cardiology. If needed, will consider vasopressor support. Other possibility is sepsis given leukocytosis, but that can be explained by recent use of steroid. Her lactic acid can be explained by hypoperfusion from hypotension, sepsis is still consideration and that is why we will consider broad spectrum antibiotic therapy with meropenem. Blood culture, urine culture obtained and we will follow up on culture result. 2. Atrial tachyarrhythmia. At this point EKG suspected for atrial fibrillation with RVR. Monitor is showing different type of atrial tachyarrhythmia. I am not clinically sure at this point. We will consult Cardiology. We are giving digoxin 0.5 mg to slow the rate. The patient probably may not tolerate Cardizem drip because of blood pressure is low. We will obtain echocardiography. We will check thyroid function test. We will monitor on monitoring coordinator and Cardiology help is appreciated. 3. Leukocytosis. Could be related with sepsis, but recent use of steroid for ulcerative colitis can explain leukocytosis. We will monitor CBC. 4. Lactic acidosis, likely related with hypoperfusion, sepsis cannot be entirely excluded. Patient is already on gentle fluid and broad spectrum antibiotic therapy. 5. [id number] myocardial infarction, type 2 demand ischemia secondary to tachycardia and hypoperfusion. We will do serial cardiac enzymes x3. Echocardiography will be obtained. Patient will be given aspirin. Anticoagulation will defer to Cardiology. We will obtain echocardiography monitor on monitoring coordinator. 6. Hypokalemia. We will replace potassium for 20 mEq IV one time dose. 7. Macrocytosis. We will continue folic acid and vitamin B12 therapy. 8. Ulcerative colitis. We will consult director biologics and continue with Solu-Medrol 40 mg IV q.6 hourly. The patient will also continue her Pentasa 1 gram q.i.d. 9. Dyslipidemia. Continue Lipitor 40 mg p.o. at bedtime and check lipid profile tomorrow. 10. Gastroesophageal reflux disease. We will continue Protonix 40 mg IV daily. 11. Deep venous thrombosis prophylaxis. Lovenox 40 mg subcu daily. 12. Gastrointestinal prophylaxis, Protonix 40 mg IV daily. 13. Code status: The patient is FULL CODE and patient's is surrogate decision maker. Disposition plan based on clinical course. We are expecting patient's stay in hospital more than 2 midnights. Plan of care discussed with the patient in detail. ADDENDUM: We ordered CT angiography and it is positive for bilateral pulmonary embolism and saddle emboli and that is why we decided to start heparin drip that explains everything including low blood pressure, atrial tachyarrhythmia and demand ischemia. The patient also has associated hypoxic respiratory failure. We will order ultrasound of the lower extremity to rule out DVT and we will keep her strict bedrest to prevent any compromise. Pulmonary group will be consulted. DAVINAD
[2018-03-21] MEDS ORDERED: Mag-Al 1200 mg/1200 mg/30 ML UDCUP PO PRN (17:17)
[2018-03-21] MEDS ORDERED: Eucerin (Mineral Oil/Petrolatum,White) 30 gm Jar TOP PRN (17:17)
[2018-03-21] MEDS ORDERED: Ondansetron ODT 4 MG TAB PO PRN (17:17)
[2018-03-21] MEDS ORDERED: Diabetic Tussin 200 MG/10 ML UDCUP PO PRN (17:17)
[2018-03-21] MEDS ORDERED: Loratadine 10 MG TAB PO PRN (17:17)
[2018-03-21] MEDS ORDERED: Zolpidem Tartrate 5 MG TAB PO PRN (17:17)
[2018-03-21] MEDS ORDERED: Heparin 10,000 UNITS/ 10 ML VIAL SLOW IVP SCH (17:17)
[2018-03-21] MEDS ORDERED: Milk Of Magnesia 30 ML UDCUP PO PRN (17:17)
[2018-03-21] MEDS ORDERED: Sodium Chloride 0.65% Nasal 44 ML BOT EA NARE PRN (17:17)
[2018-03-21] MEDS ORDERED: Loperamide HCl 2 MG CAP PO PRN (17:17)
[2018-03-21] MEDS ORDERED: Senokot 8.6 MG TAB PO PRN (17:17)
[2018-03-21] MEDS ORDERED: Chloraseptic Spray 180 ml Bottle PO PRN (17:17)
[2018-03-21] MEDS ORDERED: Artificial Tears 18 DROP/0.9 ML EA EYE PRN (17:17)
[2018-03-21] MEDS ORDERED: Heparin 25,000 units/D5W 500 ML IVPB SCH (17:17)
[2018-03-21] MEDS: Digoxin 0.5 MG/2 ML AMP SLOW IVP SCH ×2 (17:41→19:07)
[2018-03-21] MEDS: Acetaminophen 325 MG TAB PO PRN (17:42)
[2018-03-21] MEDS: Sodium Chloride 0.9% 1,000 ML IV SCH (17:44)
[2018-03-21 17:54] VITALS: BMI 29.3
[2018-03-21] MEDS ORDERED: methylPREDNISolone Sod Succ/PF 125 MG/2 ML VIAL IVP SCH (18:00)
[2018-03-21 19:13] LABS: Hemoglobin 15.3 g/dL (12.0-16.0); Platelet Count 195 thou/uL (130-400)
[2018-03-21 19:43] LABS: Troponin I 0.327 ng/mL (< 0.028)
[2018-03-21] MEDS: Ondansetron HCl/PF 4 MG/2 ML Vial IVP PRN (20:28)
[2018-03-21] MEDS: HYDROcodone/Acetaminophen 5/325 mg Tablet PO PRN (21:06)
[2018-03-21] MEDS: Pantoprazole 40 MG VIAL IVP SCH (21:11)
[2018-03-21] MEDS: Melatonin 3 MG TAB PO SCH (21:12)
[2018-03-21] MEDS: Atorvastatin Calcium 40 MG TAB PO SCH (21:12)
[2018-03-21] MEDS ORDERED: Digoxin 0.5 MG/2 ML AMP SLOW IVP SCH (22:00)
[2018-03-21] MEDS ORDERED: Dronedarone HCl 400 MG TAB PO SCH (22:00)
[2018-03-21 22:33] LABS: Troponin I 0.309 ng/mL (< 0.028)
--- NOTE | 2018-03-21 23:05 | ULT ---
BILATERAL LOWER EXTREMITY VENOUS ULTRASOUND WITH DOPPLER: 03/21/18 HISTORY: Bilateral pulmonary artery emboli. COMPARISON: None. TECHNIQUE: Daily scale, color flow, doppler images with spectral waveform analysis performed of the left and righ t lower extremity venous system. FINDINGS: RIGHT LOWER EXTREMITY: There is compressibility, presence of flow and augmentation in the common femoral vein, femoral vein, and popliteal vein. There is flow in the greater saphenous vein, profunda vein, and posterior tibial vein. LEFT LOWER EXTREMITY: There is compressibility, presence of flow and augmentation in the common femoral vein. There is flow in the greater saphenous vein and profunda vein. There is echogenic material with incomplete humera sibility involving the femoral vein compatible with thrombus. Popliteal vein and posterior tibial vei n are patent. IMPRESSION: Thrombus in the proximal left lower extremity femoral vein. POS: [facility]
[2018-03-22 02:30] LABS: PTT Greater than 250.0 SEC (22.9-36.1)
[2018-03-22 02:32] LABS: ALT (SGPT) 12 U/L (8-55); AST (SGOT) 21 U/L (5-34); Albumin 2.3 g/dL (3.4-4.8); Alkaline Phosphatase 61 U/L (40-150); Anion Gap 11 mmol/L (10-20); BUN (Urea Nitrogen) 13 mg/dL (9.8-20.1); Bilirubin, Total 0.6 mg/dL (0.2-1.2); Calc. Creatinine Clearance 88 mL/min (70-130); Calcium 7.5 mg/dL (7.8-10.44); Carbon Dioxide 22 mmol/L (23-31); Chloride 108 mmol/L (98-107); Estimated GFR-MDRD 90; Globulin 2.8 g/dL (2.4-3.5); Glucose 184 mg/dL (83-110); Potassium 3.7 mmol/L (3.5-5.1); Protein, Total 5.1 g/dL (6.0-8.3); Sodium 137 mmol/L (136-145)
[2018-03-22 02:48] LABS: Band 37 % (5-11); Hemoglobin 14.2 g/dL (12.0-16.0); Lymphocytes 3 % (21-51); MDiff Complete? YES; Mean Corpuscular HGB CONC 33.3 g/dL (32.0-36.0); Mean Platelet Volume 6.7 fL (7.4-10.4); Metamyelocyte 4 % (0-0); Monocytes 4 % (0-10); Neutrophil 52 % (42-75); PLT Morphology Comment Appears Adequate; Platelet Count 224 thou/uL (130-400); RBC Distribution Width 13.3 % (11.5-14.5); Red Blood Cell (RBC) Count 4.19 mill/uL (4.20-5.40)
--- NOTE | 2018-03-22 04:52 | CON ---
DATE OF CONSULTATION: 03/21/2018 HISTORY: Blank Chandra is an 83-year-old white female who was discharged yesterday after 10 days in the hospital. She was found to have ulcerative colitis with frequent stools mixed with blood and mucus. She was started on IV steroids and transitioned to oral prednisone. She was discharged yesterday and started having some lower rib margin upper abdominal pain associated with shortness of breath and dizziness. She went to the [place] [facility] [facility] and was tachycardic and hypotensive. Blood pressure was 80/40. She started Levophed and transferred here. She was given broad- spectrum antibiotics. She has leukocytosis and elevated lactic acid. She was given Rocephin 1 gram and vancomycin. Ultimately the Levophed was tapered and discontinued. PAST MEDICAL HISTORY: Ulcerative colitis. OPERATIONS: Ovarian surgery, appendectomy, tonsillectomy, mastectomy, cholecystectomy, left knee surgery, cataract surgery, and then left knee replacement. MEDICATIONS: Ascorbic acid 500 mg daily, Lipitor 40 daily, melatonin 10 mg at bedtime, Pentasa 1000 mg q.i.d., omeprazole 20 mg daily, prednisone 20 mg b.i.d. , Florastor 250 mg daily. ALLERGIES: CLINDAMYCIN, LEVOFLOXACIN, PENICILLINS, POLYETHYLENE GLYCOL, POTASSIUM CHLORIDE, SODIUM BICARBONATE, SODIUM CHLORIDE. FAMILY HISTORY: Father had myocardial infarction. REVIEW OF SYSTEMS: Twelve-point review of systems unremarkable except as noted above. PHYSICAL EXAMINATION: VITAL SIGNS: Blood pressure 130/75, pulse of 110 times on the monitor, her heart rate increases up to 150-160. HEENT: PERRL. CHEST: Clear. CARDIAC: S1, S2 normal without any S3, S4, or murmurs. ABDOMEN: Normal bowel sounds with mild abdominal tenderness. There is no rebound. EXTREMITIES: Revealed no clubbing, cyanosis, or edema. NEUROLOGIC: Grossly intact. LABORATORY DATA: EKG shows a multitude of narrow complex tachycardias. At times, she appears to be in atrial fibrillation and other times supraventricular tachycardia with rate of 200 per minute. White count 29,100, hemoglobin 14.8, hematocrit 45.7, platelets 263,000. ABG: pH 7.389, pCO2 of 35.2, pO2 of 195.5, troponin I is up to 0.327. BNP 827.8. Sodium 139, potassium 3.3, chloride 104, carbon dioxide 22, BUN 13, creatinine 0.67, lactic acid 4.1. IMPRESSION: 1. New onset with various supraventricular arrhythmias. At times, she has supraventricular tachycardia and other times with atrial fibrillation. She has been given intravenous digoxin 0.5 thus far. 2. Possible sepsis with elevated white count, hypotension. 3. Ulcerative colitis with bloody bowel movements. PLAN: Ms. Chandra certainly is not a good long-term anticoagulant candidate with ulcerative colitis and frequent bloody bowel movements. She will be covered with broad-spectrum antibiotics for her possible sepsis. She will be loaded with digoxin also we will start Multaq in the hopes of better controlling these arrhythmias. If that does not, then consideration may need to be given to intravenous amiodarone. Also, echocardiogram will be performed to assess her left ventricular function. RHIANNON
[2018-03-22 05:13] LABS: PTT 120.1 SEC (22.9-36.1)
[2018-03-22] MEDS: Sodium Chloride 0.9% 1,000 ML IV SCH (06:18)
[2018-03-22] MEDS: Dronedarone HCl 400 MG TAB PO SCH ×2 (08:13→17:02)
[2018-03-22] MEDS: Folic Acid 1 MG TAB PO SCH (08:14)
[2018-03-22] MEDS: Pantoprazole 40 MG VIAL IVP SCH ×2 (08:14→21:55)
[2018-03-22] MEDS: Cyanocobalamin (Vitamin B-12) 1,000 MCG TAB PO SCH (08:14)
[2018-03-22 10:34] LABS: Anion Gap 11 mmol/L (10-20); BUN (Urea Nitrogen) 13 mg/dL (9.8-20.1); Calc. Creatinine Clearance 88 mL/min (70-130); Calcium 7.4 mg/dL (7.8-10.44); Carbon Dioxide 21 mmol/L (23-31); Chloride 107 mmol/L (98-107); Estimated GFR-MDRD 90; Glucose 188 mg/dL (83-110); Magnesium 1.9 mg/dL (1.6-2.6); Phosphorus 3.5 mg/dL (2.3-4.7); Potassium 4.1 mmol/L (3.5-5.1); Sodium 135 mmol/L (136-145)
[2018-03-22 10:36] LABS: Troponin I 0.176 ng/mL (< 0.028)
[2018-03-22 10:55] LABS: PTT 209.6 SEC (22.9-36.1)
[2018-03-22] MEDS: Cefepime 1 GM in Sodium Chloride 0.9% 100 ML IVPB SCH ×2 (11:00→21:56)
[2018-03-22 11:44] LABS: Band 11 % (5-11); Hemoglobin 13.5 g/dL (12.0-16.0); Lymphocytes 6 % (21-51); MDiff Complete? YES; Macrocytosis SLIGHT = 6-15 cells (100X) (0-5/hpf); Mean Corpuscular HGB CONC 33.4 g/dL (32.0-36.0); Mean Corpuscular Hemoglobin 33.8 pg (27.0-31.0); Mean Platelet Volume 6.8 fL (7.4-10.4); Metamyelocyte 1 % (0-0); Monocytes 5 % (0-10); Neutrophil 74 % (42-75); PLT Morphology Comment Appears Adequate; Platelet Count 207 thou/uL (130-400); RBC Distribution Width 13.1 % (11.5-14.5); Reactive Lymphocytes 3 % (0-10); White Blood Cell (WBC) Count 21.5 thou/uL (4.8-10.8)
[2018-03-22] MEDS ORDERED: Furosemide 20 MG/2 ML VIAL SLOW IVP SCH (12:15)
--- NOTE | 2018-03-22 15:06 | PDOC.PN ---
- Subjective Encounter Start Date: 03/22/18 Encounter Start Time: 15:03 Subjective: feels OK. tired but no new complaints -: denies any CP/SOb.no abd pain -: no BM sinec presentation.no Blood per rectum - Objective Resuscitation Status: Resuscitation Status FULL:Full Resuscitation MAR Reviewed: Yes Vital Signs & Weight: Vital Signs (12 hours) Temp Pulse Resp BP Pulse Ox 03/22/18 11:18 98.8 F 89 20 95/68 91 L 03/22/18 07:23 97.9 F 76 18 94 L 03/22/18 07:16 97.9 F 76 18 118/72 91 L 03/22/18 03:45 98.0 F 91 16 100/65 90 L Weight Weight 182 lb I&O: 03/21/18 03/22/18 03/23/18 06:59 06:59 06:59 Intake Total 1840 Output Total 350 Balance 1490 Result Diagrams: 03/22/18 10:08 03/22/18 10:08 Additional Labs: Microbiology 03/21/18 13:58 Venous blood - Right Hand Blood Culture - Preliminary Specimen has been received and culture in progress. No Growth to date. 03/21/18 13:48 Urine jenkins catheter Urine Culture - Preliminary NO GROWTH AT 24 HOURS 03/21/18 13:44 Venous blood - Left Hand Blood Culture - Preliminary Specimen has been received and culture in progress. No Growth to date. Laboratory Tests 03/21/18 03/21/18 03/21/18 13:58 13:58 13:58 Band Neuts % (Manual) 15 H Lactic Acid 4.1 H* Troponin I 0.319 H* B-Natriuretic Peptide 03/21/18 03/21/18 03/21/18 19:04 21:53 21:56 Band Neuts % (Manual) 37 H Lactic Acid Troponin I 0.327 H* 0.309 H* B-Natriuretic Peptide 03/22/18 03/22/18 03/22/18 10:08 10:08 10:08 Band Neuts % (Manual) 11 Lactic Acid Troponin I 0.176 H B-Natriuretic Peptide 1110.3 H labs reviewed Phys Exam - Physical Examination Constitutional: NAD HEENT: PERRLA, moist MMs, sclera anicteric, oral pharynx no lesions Neck: no nodes, no JVD, supple, full ROM Respiratory: no wheezing, no rales, no rhonchi, clear to auscultation bilateral Cardiovascular: RRR, no significant murmur, no rub Gastrointestinal: soft, non-tender, no distention, positive bowel sounds Musculoskeletal: pulses present, edema present Neurological: non-focal, normal sensation, moves all 4 limbs Psychiatric: normal affect, A&O x 3 Dx/Plan (1) Bilateral pulmonary embolism Code(s): I26.99 - OTHER PULMONARY EMBOLISM WITHOUT ACUTE COR PULMONALE Status : Acute (2) Left leg DVT Code(s): I82.402 - ACUTE EMBOLISM AND THOMBOS UNSP DEEP VEINS OF L LOW EXTREM Status: Acute (3) Atrial fibrillation with RVR Code(s): I48.91 - UNSPECIFIED ATRIAL FIBRILLATION Status: Acute Comment: rate controlled on Amiodarone (4) Troponin level elevated Code(s): R74.8 - ABNORMAL LEVELS OF OTHER SERUM ENZYMES Status: Acute Comment: Likley demand ischemia from PE and a-fib w RVR. troponin trending down (5) Acute diastolic CHF (congestive heart failure) Code(s): I50.31 - ACUTE DIASTOLIC (CONGESTIVE) HEART FAILURE Status: Acute Comment: BNP>1000 (6) Ulcerative colitis, acute Code(s): K51.90 - ULCERATIVE COLITIS, UNSPECIFIED, WITHOUT COMPLICATIONS Status: Acute Comment: On IV steroids and Pentasa (7) HLD (hyperlipidemia) Code(s): E78.5 - HYPERLIPIDEMIA, UNSPECIFIED Status: Chronic (8) Physical deconditioning Code(s): R53.81 - OTHER MALAISE Status: Chronic - Plan plan discussed w/ family, PT/OT, respiratory therapy, incentive spirometry, out of bed/ambulate, DVT proph w/SCDs On heparin drip for saddle ,b/l PE.proceed w caution w recent GIB -: cont Amiodarone . -: Stop IVF. give 1 dose lasix. Diastolic dysfunction on ECHO -: Will need IVC filter eventually as poor candidate for jail AC -: cont IV steroids. GI consulted * .daily labs.monitor H/h closely * * bandemia better * OT/PT if able to tolerate Review of Systems - Review of Systems Constitutional: weakness, malaise. negative: fever, chills, sweats, other Respiratory: negative: Cough, Dry, Shortness of Breath, Hemoptysis, SOB with Excertion, Pleuritic Pain, Sputum, Wheezing Cardiovascular: negative: chest pain, palpitations, orthopnea, paroxysmal nocturnal dyspnea, edema, light headedness, other Gastrointestinal: negative: Nausea, Vomiting, Abdominal Pain, Diarrhea, Constipation, Melena, Hematochezia, Other Genitourinary: negative: Dysuria, Frequency, Incontinence, Hematuria, Retention , Other Musculoskeletal: negative: Neck Pain, Shoulder Pain, Arm Pain, Back Pain, Hand Pain, Leg Pain, Foot Pain, Other Skin: negative: Rash, Lesions, Lex, Bruising, Other Neurological: negative: Weakness, Numbness, Incoordination, Change in Speech, Confusion, Seizures, Other - Medications/Allergies Allergies/Adverse Reactions: Allergies Allergy/AdvReac Type Severity Reaction Status Date / Time clindamycin [From Cleocin] Allergy Verified 03/10/18 13:44 levofloxacin Allergy Verified 03/10/18 13:44 Penicillins Allergy Verified 03/10/18 13:44 polyethylene glycol Allergy Verified 03/10/18 13:44 [From Colyte] polyethylene glycol 3350 Allergy Verified 03/10/18 13:44 [From Colyte] potassium chloride Allergy Verified 03/10/18 13:44 [From Colyte] sodium [From Colyte] Allergy Verified 03/10/18 13:44 sodium bicarbonate Allergy Verified 03/10/18 13:44 [From Colyte] sodium chloride [From Colyte] Allergy Verified 03/10/18 13:44 sodium sulfate [From Colyte] Allergy Verified 03/10/18 13:44 Sulfa (Sulfonamide Allergy Verified 03/10/18 13:44 Antibiotics) Medications: Current Medications Acetaminophen (Tylenol) 650 mg PO Q4H PRN PRN Reason: Headache/Fever or Pain Last Admin: 03/21/18 17:42 Dose: 650 mg Hydrocodone Bitart/Acetaminophen (Stover 5/325) 1 tab PO Q4H PRN PRN Reason: Moderate Pain (4-6) Last Admin: 03/21/18 21:06 Dose: 1 tab Al Hydroxide/Mg Hydroxide (Maalox) 30 ml PO Q6H PRN PRN Reason: Heartburn or Indigestion Artificial Tears (Tears Naturale) 0 drop EA EYE PRN PRN PRN Reason: Dry Eyes Atorvastatin Calcium (Lipitor) 40 mg PO HS DARIUS Last Admin: 03/21/18 21:12 Dose: 40 mg Cyanocobalamin (Vitamin B-12) 1,000 mcg PO DAILY [facility] Last Admin: 03/22/18 08:14 Dose: 1,000 mcg Dronedarone (Multaq) 400 mg PO BID-[facility] Last Admin: 03/22/18 08:13 Dose: 400 mg Folic Acid (Folvite) 1 mg PO DAILY [facility] Last Admin: 03/22/18 08:14 Dose: 1 mg Guaifenesin (Robitussin Sf) 200 mg PO Q4H PRN PRN Reason: Cough Heparin Sodium (Porcine) (Heparin 1,000 Units/Ml (10 Ml)) 0 units SLOW IVP ASDIR [facility] PRN Reason: Protocol Heparin Sodium/Dextrose (Heparin 25,000 Units/D5w 500 Ml) 500 mls @ 0 mls/hr IVPB INF DARIUS; Per Protocol PRN Reason: Protocol Last Admin: 03/22/18 10:02 Dose: 500 mls Cefepime HCl 1 gm/ Sodium (Chloride) 100 mls @ 200 mls/hr IVPB 1000,2200 [facility] Last Admin: 03/22/18 11:00 Dose: 100 mls Loperamide HCl (Imodium) 2 mg PO PRN PRN PRN Reason: Diarrhea/Loose Stools Loratadine (Claritin) 10 mg PO DAILYPRN PRN PRN Reason: Sinus Symptoms Magnesium Hydroxide (Milk Of Magnesium) 30 ml PO DAILYPRN PRN PRN Reason: Constipation Melatonin (Melatonin) 9 mg PO [facility] Last Admin: 03/21/18 21:12 Dose: 9 mg Mesalamine (Pentasa) 1,000 mg PO QID [facility] Last Admin: 03/22/18 12:32 Dose: 1,000 mg Methylprednisolone Sodium Succinate (Solu-Medrol) 40 mg IVP BID [facility] Mineral Oil/White Petrolatum (Eucerin Cream) 0 gm TOP BIDPRN PRN PRN Reason: Dry Skin Ondansetron HCl (Zofran Odt) 4 mg PO Q6H PRN PRN Reason: Nausea/Vomiting Ondansetron HCl (Zofran) 4 mg IVP Q6H PRN PRN Reason: Nausea/Vomiting Last Admin: 03/21/18 20:28 Dose: 4 mg Pantoprazole Sodium (Protonix) 40 mg IVP Q12HR [facility] Last Admin: 03/22/18 08:14 Dose: 40 mg Phenol (Chloraseptic [place] 180 Ml Bot) 0 ml PO PRN PRN PRN Reason: Sore Throat Senna (Senokot) 2 tab PO HSPRN PRN PRN Reason: Constipation Sodium Chloride ([place] Nasal [place] 0.65%) 0 ml EA NARE QIDPRN PRN PRN Reason: Nasal Congestion Zolpidem Tartrate (Ambien) 5 mg PO HSPRN PRN PRN Reason: Insomnia
--- NOTE | 2018-03-22 16:47 | CON ---
DATE OF CONSULTATION: 03/22/2018 HISTORY OF PRESENT ILLNESS: This is a very pleasant 83-year-old female, essentially nonsmoker, who s ustained multiple falls in [place], [place] in a detention over there. She was brought in here because she was just recently discharged no more than 24-48 hours ago. diagnosis ulcerative colitis. She underwent a colonoscopy by Dr. Francis. In the ER, she was found to have new onset supraventricular arrhythmia and atrial fibrillation. She was given digoxin in the ER. There was concern she had sepsis somewhere down the line. CT chest ang io was done empirically and was found to have bilateral pulmonary emboli along with a left leg ultras ound showing a left femoral vein DVT. In fact, she denies any chest pain, shortness of breath, cough, wheezing. Her main admission diagnosis was marked weakness. PAST MEDICAL HISTORY: Otherwise, pertinent mainly for colitis, hyperlipidemia, and insomnia. PAST SURGICAL HISTORY: Tonsil, cholecystectomy, mastectomy benign, colonoscopy. MEDICATIONS: List of medicine prior to the recent discharge included prednisone 20, omeprazole 20, P entasa 1000 four times a day, melatonin, Lipitor, and budesonide EC 3 capsule in the morning for coli tis. ALLERGIES: She has allergies to CLINDAMYCIN, LEVAQUIN, PENICILLIN, and SULFA. SOCIAL/FAMILY HISTORY: Unremarkable. REVIEW OF SYSTEMS: Otherwise negative. No previous history of pneumonia. PHYSICAL EXAMINATION: VITAL SIGNS: Sats are 94% on 2 liters, temperature 97, pulse 76, respiratory rate 18, blood pressure 118/72. CHEST: Decreased breath sounds, no wheezing. CARDIAC: Normal S1, S2, no gallops. ABDOMEN: No mass. LABORATORY DATA: PTT is 120. White count 23,000, H and H 14 and 42, platelet count is normal. She has still got a big left shift, 50 segs, 37 bands. Electrolytes are normal. So far cultures are negative. IMPRESSION: 1. Ulcerative colitis with recent fall. 2. Incidental finding of bilateral pulmonary emboli with DVT left leg. 3. Supraventricular arrhythmias. She was started on high dose steroids for ulcerative colitis. IV heparin. I would continue for the time being. I am concerned that if she has a GI bleed, she may need inferior cava filter. We will g et an opinion from GI. She has marked leukocytosis. I would empirically start on some broad-spectru m antibiotics in fact that was presenting symptom. Possibly sepsis with a markedly elevated white co unt on admission of 29,000. Echo has been ordered. A chest x-ray was reviewed on admission, which shows chronic changes, but no acute infiltrates. We will follow. This is a 70-minute critical time, of which 50% in direct patient care.
[2018-03-22] MEDS: HYDROcodone/Acetaminophen 5/325 mg Tablet PO PRN (17:02)
--- NOTE | 2018-03-22 20:59 | CON ---
DATE OF CONSULTATION: 03/22/2018 REASON FOR CONSULTATION: Ulcerative colitis, septic shock. CONSULTING PHYSICIAN: Dr. Vipul Chang. HISTORY OF PRESENT ILLNESS: The patient is an 83-year-old female with past medical history of ulcera tive colitis that was recently diagnosed during last hospitalization, now presenting with sepsis. Up on chart review of the prior hospitalization, she had been having mild increase in abdominal pain as well as significant stools that had been present for some time. She ultimately underwent colonoscopy on 03/18/2018 which showed severe chronic ulcerative colitis involving the transverse and descending , sigmoid colon, and rectum. Biopsies were consistent with chronic active colitis with moderate to m arked involvement, but no dysplasia or malignancy was identified. She was subsequently placed on ora l steroids and discharged to home with plans to follow up in the GI clinic for ultimately being place d on either immunomodulator or biologic therapy. However, shortly after being discharged from the [facility], she started having increased chest pain, shortness of breath, and dizziness which prompted he r admission to the [facility]. When being evaluated in the [facility], she was noted to be hypotensive and tachycardic with a blood pressure of approximately 80/40 concerning for septic sp ck. She was ultimately given IV fluids and started on pressor support with transfer to [facility] for further management. While here in the hospitalization, she has been placed on broad spect rum antibiotic therapy as well as increased IV fluids, but the pressure support has since been discon tinued due to improvement in her clinical status. She did have a mild elevation in her troponins con cerning for demand ischemia per cardiology evaluation, but otherwise the patient is doing well today. She currently denies any nausea, vomiting, fevers, chills, dysphagia, odynophagia, GI bleeding, abraham rrhea or constipation. She states that her last bowel movement was approximately 48 hours ago. REVIEW OF SYSTEMS: A 10 category review of systems was obtained with all responses negative except f or the pertinent positives as listed in the HPI. PAST MEDICAL HISTORY: Ulcerative colitis. PAST SURGICAL HISTORY: Tonsillectomy, ovarian surgery, appendectomy, mastectomy, cholecystectomy, le ft knee surgery, cataract surgery, and left total knee replacement in 2013. FAMILY HISTORY: Denies any GI malignancies or IBD. SOCIAL HISTORY: Denies any tobacco, alcohol or illicit drug use. OUTPATIENT MEDICATIONS: Reviewed. ALLERGIES: CLINDAMYCIN, LEVOFLOXACIN, PENICILLIN, MIRALAX and SULFONAMIDE. PHYSICAL EXAMINATION: VITAL SIGNS: Temperature 98, pulse 106, blood pressure 122/77, respiratory rate 18, satting 93% on 2 liters nasal cannula. GENERAL: The patient is lying in bed, in no acute distress, alert and oriented x4. NECK: Supple. No JVD noted. CARDIOVASCULAR: Tachycardic rate, but regular rhythm. No discernible murmurs, gallops or rubs. RESPIRATORY: Clear to auscultation bilaterally with no discernible wheezes or rales. ABDOMEN: Normoactive bowel sounds, soft, nontender, nondistended. EXTREMITIES: No cyanosis, clubbing or edema. LABORATORY DATA: CBC with a white blood cell count of 23, hemoglobin 14.2, hematocrit 42.7, platelet s 224. Chemistry with a sodium of 137, potassium 3.7, chloride 108, CO2 of 22, BUN 13, creatinine 0. 63, glucose 184, AST 21, ALT 12, alkaline phosphatase 61, total bilirubin 0.6, albumin 2.3. Troponin s 0.309. IMAGING DATA: CT of the chest obtained on 03/21/2018 showed bilateral pulmonary emboli with a large saddle type embolus in the left main pulmonary artery. There was also a pulmonary embolus in the rig ht upper pulmonary artery as well. ASSESSMENT AND PLAN: The patient is an 83-year-old female with past medical history of ulcerative co litis presenting with tachycardia, hypotension, pulmonary emboli and symptoms concerning for sepsis. Ulcerative colitis: The patient was recently diagnosed with ulcerative colitis during her last hospi talization in the end of February, characterized as increased mucosal inflammation and ulceration extendi ng from the rectum into the transverse colon. There was also some mild granularity within the right colon concerning for continued disease process there. She was ultimately placed on oral steroid ther apy and discharged to home; however, shortly after her discharge, she experienced increased hypotensi on and tachycardia that required pressor support as part of her management. Imaging findings on this admission were consistent with a saddle type pulmonary embolus which could potentially generate all of the symptoms she has been having up until this time. With the recent diagnosis of ulcerative coli tis, infection is also within the differential that could generate an elevated white blood cell count as well as hypotension and tachycardia (especially when associated with immunosuppressive therapy wi th steroids on discharge). From her ulcerative colitis standpoint, continuation of her steroids in l ight of a possible infectious etiology may be ill-advised. RECOMMENDATIONS: 1. We would continue patient on mesalamine 2 grams b.i.d. 2. We discontinue IV steroids for now in light of possible infectious etiology of her hypotension an d tachycardia. 3. I would continue anticoagulation therapy in light of large pulmonary embolism. 4. We would continue antibiotics for now given a possible infectious etiology. We will continue to monitor. Please call with any additional questions.
[2018-03-22] MEDS: Melatonin 3 MG TAB PO SCH (21:55)
[2018-03-22] MEDS: Atorvastatin Calcium 40 MG TAB PO SCH (21:55)
[2018-03-23] MEDS: HYDROcodone/Acetaminophen 5/325 mg Tablet PO PRN (03:46)
[2018-03-23 04:11] LABS: Anion Gap 15 mmol/L (10-20); BUN (Urea Nitrogen) 15 mg/dL (9.8-20.1); Calc. Creatinine Clearance 88 mL/min (70-130); Calcium 7.6 mg/dL (7.8-10.44); Carbon Dioxide 20 mmol/L (23-31); Chloride 105 mmol/L (98-107); Estimated GFR-MDRD 90; Glucose 129 mg/dL (83-110); Potassium 3.6 mmol/L (3.5-5.1); Sodium 136 mmol/L (136-145)
[2018-03-23 04:19] LABS: Band 11 % (5-11); Lymphocytes 5 % (21-51); MDiff Complete? YES; Mean Corpuscular HGB CONC 33.7 g/dL (32.0-36.0); Mean Corpuscular Hemoglobin 34.4 pg (27.0-31.0); Mean Platelet Volume 6.7 fL (7.4-10.4); Metamyelocyte 2 % (0-0); Monocytes 7 % (0-10); Neutrophil 75 % (42-75); PLT Morphology Comment Appears Adequate; Platelet Count 207 thou/uL (130-400); RBC Distribution Width 13.2 % (11.5-14.5); Red Blood Cell (RBC) Count 3.77 mill/uL (4.20-5.40); White Blood Cell (WBC) Count 23.3 thou/uL (4.8-10.8)
[2018-03-23] MEDS: Dronedarone HCl 400 MG TAB PO SCH ×2 (08:51→17:41)
[2018-03-23] MEDS: Folic Acid 1 MG TAB PO SCH (08:51)
[2018-03-23] MEDS: Cyanocobalamin (Vitamin B-12) 1,000 MCG TAB PO SCH (08:51)
[2018-03-23] MEDS: Pantoprazole 40 MG VIAL IVP SCH ×2 (08:52→21:18)
[2018-03-23] MEDS: Cefepime 1 GM in Sodium Chloride 0.9% 100 ML IVPB SCH ×2 (08:53→21:19)
[2018-03-23] MEDS: Enoxaparin Sodium 80 MG/0.8 ML SYRINGE SC SCH ×2 (11:16→21:18)
[2018-03-23] MEDS ORDERED: Furosemide 20 MG/2 ML VIAL SLOW IVP SCH (11:30)
--- NOTE | 2018-03-23 12:52 | PRG ---
DATE OF SERVICE: 03/23/2018 REASON FOR CONSULTATION: Ulcerative colitis. SUBJECTIVE: The patient states that she did well last night with no acute events or problems. She d oes continue to have some mild lower quadrant abdominal pain that has been present for the last 2 wee ks since her diagnosis with ulcerative colitis, otherwise she denies any nausea, vomiting, fevers, ch ills, dysphagia, odynophagia, hematochezia, diarrhea, or constipation. OBJECTIVE: VITAL SIGNS: Temperature 97.6, pulse 97, blood pressure 146/91, respiratory rate 16, and satting 97% on 2 liters nasal cannula. GENERAL: Patient is lying in bed in no acute distress. Alert and oriented x4. CARDIOVASCULAR: Tachycardic rate, but regular rhythm. RESPIRATORY: Clear to auscultation bilaterally. ABDOMEN: Normoactive bowel sounds, soft, nontender, nondistended. EXTREMITIES: No cyanosis, clubbing or edema. LABORATORY DATA: CBC with a white blood cell count of 23.3, hemoglobin 13, hematocrit 38.4, platelet s 207. Chemistry with a sodium of 136, potassium 3.6, chloride 105, CO2 of 20, BUN 15, creatinine 0. 63, and glucose 129. IMAGING DATA: No current GI imaging is available for review. ASSESSMENT AND PLAN: The patient is an 83-year-old female with past medical history of ulcerative co litis, presenting with tachycardia, hypotension and pulmonary emboli consistent with pulmonary emboli sm and possible sepsis. Ulcerative colitis. The patient was recently diagnosed with ulcerative colitis during her last hospitalization at the end of February, characterized by increased mucosal inflammation and ulceration extending from the rectum in to the mid transverse colon. She was ultimately placed on oral mesalamine as well as oral steroid th erapy and discharged her home with plans to follow up in the clinic; however, shortly after her disch arge, she experienced increased hypotension and tachycardia. The required significant management inc luding pressor support. Imaging findings on admission were consistent with a saddle type pulmonary e mbolus, which could generate all of the above symptoms; however, with the question of anticoagulation needed in relation to her recent diagnosis of ulcerative colitis. She has had no episodes of hemato chezia during this admission and the medication should not be held in regards to this. RECOMMENDATIONS: 1. We would continue patient on mesalamine 2 grams b.i.d. 2. We would continue to hold IV steroids for now in light of possible infectious etiology and septic shock contributing to hypotension and tachycardia. 3. We would continue with full anticoagulation therapy, enlarged and might have a large pulmonary em bolism and lack of evidence of GI bleeding. We will continue to follow. Please call with any questions.
--- NOTE | 2018-03-23 13:42 | PRG ---
DATE OF SERVICE: 03/23/2018 SUBJECTIVE: This morning, she is better. She is less short of breath. OBJECTIVE: VITAL SIGNS: Sats 97 on 2 liters, temperature 97, blood pressure 146/91. EXTREMITIES: 2+ edema, ecchymosis. CHEST: Decreased breath sounds without any wheezing. CARDIAC: Normal S1, S2. ABDOMEN: Soft, no masses. LABORATORY DATA: White count 87703, H and H 13 and 38, platelet count 207. Kidney function normal. BNP is 1110 and thyroid function was normal. IMPRESSION: 1. Colitis. 2. Pulmonary embolism/deep venous thrombosis. 3. No evidence of gastrointestinal bleed. 4. Leukocytosis. PLAN: We will switch over to Lovenox for the next 24-48 hours. If no further bleeding, switch over to Eliquis. A 6 months anticoagulation. Continue antibiotics. Continue PT and supportive care. We will follow.
--- NOTE | 2018-03-23 14:59 | PDOC.PN ---
- Subjective Encounter Start Date: 03/23/18 Encounter Start Time: 14:58 Subjective: seen and examined with at bedside -: reports feeling a little better but pain r ribcage -: no SOB/Fever/chills. - Objective Resuscitation Status: Resuscitation Status FULL:Full Resuscitation MAR Reviewed: Yes Vital Signs & Weight: Vital Signs (12 hours) Temp Pulse Pulse Pulse Resp BP BP 03/23/18 11:09 97.7 F 111 H 03/23/18 09:31 100 101 H 143/82 H 134/78 03/23/18 07:37 97.6 F 97 16 03/23/18 07:22 97.6 F 97 16 03/23/18 04:00 97.8 F 104 H 20 BP Pulse Ox Pulse Ox Pulse Ox 03/23/18 11:09 123/79 97 03/23/18 09:31 100 100 03/23/18 07:37 97 03/23/18 07:22 146/91 H 95 03/23/18 04:00 155/90 H 97 Weight Weight 182 lb I&O: 03/22/18 03/23/18 03/24/18 06:59 06:59 06:59 Intake Total 1840 2400 Output Total 350 2075 Balance 1490 325 Result Diagrams: 03/23/18 00:59 03/23/18 00:59 Additional Labs: Microbiology 03/21/18 13:48 Urine jenkins catheter Urine Culture - Final NO GROWTH AT 48 HOURS 03/21/18 13:58 Venous blood - Right Hand Blood Culture - Preliminary NO GROWTH AT 48 HOURS 03/21/18 13:44 Venous blood - Left Hand Blood Culture - Preliminary NO GROWTH AT 48 HOURS Laboratory Tests 03/21/18 03/21/18 03/21/18 13:58 13:58 19:03 Lactic Acid 4.1 H* 3.0 H Troponin I 0.319 H* B-Natriuretic Peptide 03/21/18 03/21/18 03/22/18 19:04 21:56 10:08 Lactic Acid Troponin I 0.327 H* 0.309 H* 0.176 H B-Natriuretic Peptide 03/22/18 10:08 Lactic Acid Troponin I B-Natriuretic Peptide 1110.3 H labs reviewed Phys Exam - Physical Examination Constitutional: NAD pale and weak looking HEENT: PERRLA, moist MMs, sclera anicteric, oral pharynx no lesions Neck: no nodes, no JVD, supple, full ROM Respiratory: no wheezing, no rales, no rhonchi, clear to auscultation bilateral Cardiovascular: no significant murmur, irregular Gastrointestinal: soft, non-tender, no distention, positive bowel sounds Musculoskeletal: pulses present, edema present Neurological: non-focal, normal sensation, moves all 4 limbs Psychiatric: normal affect, A&O x 3 Skin: no rash Dx/Plan (1) Bilateral pulmonary embolism Code(s): I26.99 - OTHER PULMONARY EMBOLISM WITHOUT ACUTE COR PULMONALE Status : Acute Comment: on full anticoagulation (2) Left leg DVT Code(s): I82.402 - ACUTE EMBOLISM AND THOMBOS UNSP DEEP VEINS OF L LOW EXTREM Status: Acute Qualifiers: Chronicity: acute (3) Atrial fibrillation with RVR Code(s): I48.91 - UNSPECIFIED ATRIAL FIBRILLATION Status: Acute Comment: rate controlled on Amiodarone (4) Troponin level elevated Code(s): R74.8 - ABNORMAL LEVELS OF OTHER SERUM ENZYMES Status: Acute Comment: Likley demand ischemia from PE and a-fib w RVR. troponin trending down (5) Acute diastolic CHF (congestive heart failure) Code(s): I50.31 - ACUTE DIASTOLIC (CONGESTIVE) HEART FAILURE Status: Acute Comment: BNP>1000 (6) Ulcerative colitis, acute Code(s): K51.90 - ULCERATIVE COLITIS, UNSPECIFIED, WITHOUT COMPLICATIONS Status: Acute Comment: On Pentasa. Steroids stopped due to question of infection (7) HLD (hyperlipidemia) Code(s): E78.5 - HYPERLIPIDEMIA, UNSPECIFIED Status: Chronic (8) Physical deconditioning Code(s): R53.81 - OTHER MALAISE Status: Chronic - Plan continue antibiotics, PT/OT, respiratory therapy, incentive spirometry, out of bed/ambulate, DVT proph w/SCDs Cont anticoagulation.changed to Lovenox by PCCM -: monitor for bleeding.H/H daily. -: cont amiodarone. -: will give 1 more doase of lasix today & re assess tomorrow. -: cont pentasa.steroids on hold per GI * .doubt infectious etiology for hypotension on presentation * suspect cardiogenic given a-fib w RVR and Ac CHF. * am labs * encourage OOB . Review of Systems - Review of Systems Constitutional: weakness, malaise. negative: fever, chills, sweats, other ENT: negative: Ear Pain, Ear Discharge, Nose Pain, Nose Discharge, Nose Congestion, Mouth Pain, Mouth Swelling, Throat Pain, Throat Swelling, Other Respiratory: negative: Cough, Dry, Shortness of Breath, Hemoptysis, SOB with Excertion, Pleuritic Pain, Sputum, Wheezing Cardiovascular: negative: chest pain, palpitations, orthopnea, paroxysmal nocturnal dyspnea, edema, light headedness, other Gastrointestinal: negative: Nausea, Vomiting, Abdominal Pain, Diarrhea, Constipation, Melena, Hematochezia, Other Genitourinary: negative: Dysuria, Frequency, Incontinence, Hematuria, Retention , Other Musculoskeletal: Other. negative: Neck Pain, Shoulder Pain, Arm Pain, Back Pain , Hand Pain, Leg Pain, Foot Pain - Medications/Allergies Allergies/Adverse Reactions: Allergies Allergy/AdvReac Type Severity Reaction Status Date / Time clindamycin [From Cleocin] Allergy Verified 03/10/18 13:44 levofloxacin Allergy Verified 03/10/18 13:44 Penicillins Allergy Verified 03/10/18 13:44 polyethylene glycol Allergy Verified 03/10/18 13:44 [From Colyte] polyethylene glycol 3350 Allergy Verified 03/10/18 13:44 [From Colyte] potassium chloride Allergy Verified 03/10/18 13:44 [From Colyte] sodium [From Colyte] Allergy Verified 03/10/18 13:44 sodium bicarbonate Allergy Verified 03/10/18 13:44 [From Colyte] sodium chloride [From Colyte] Allergy Verified 03/10/18 13:44 sodium sulfate [From Colyte] Allergy Verified 03/10/18 13:44 Sulfa (Sulfonamide Allergy Verified 03/10/18 13:44 Antibiotics) Medications: Current Medications Acetaminophen (Tylenol) 650 mg PO Q4H PRN PRN Reason: Headache/Fever or Pain Last Admin: 03/21/18 17:42 Dose: 650 mg Hydrocodone Bitart/Acetaminophen ([place] 5/325) 1 tab PO Q4H PRN PRN Reason: Moderate Pain (4-6) Last Admin: 03/23/18 03:46 Dose: 1 tab Al Hydroxide/Mg Hydroxide (Maalox) 30 ml PO Q6H PRN PRN Reason: Heartburn or Indigestion Artificial Tears (Tears Naturale) 0 drop EA EYE PRN PRN PRN Reason: Dry Eyes Atorvastatin Calcium (Lipitor) 40 mg PO HS COUNT [facility]CLUD[facility] Last Admin: 03/22/18 21:55 Dose: 40 mg Cyanocobalamin (Vitamin B-12) 1,000 mcg PO DAILY [facility] Last Admin: 03/23/18 08:51 Dose: 1,000 mcg Dronedarone (Multaq) 400 mg PO BID-[facility] Last Admin: 03/23/18 08:51 Dose: 400 mg Enoxaparin Sodium (Lovenox) 80 mg SC 0900,2100 [facility] Last Admin: 03/23/18 11:16 Dose: 80 mg Folic Acid (Folvite) 1 mg PO DAILY [facility] Last Admin: 03/23/18 08:51 Dose: 1 mg Guaifenesin (Robitussin Sf) 200 mg PO Q4H PRN PRN Reason: Cough Heparin Sodium (Porcine) (Heparin 1,000 Units/Ml (10 Ml)) 0 units SLOW IVP ASDIR COUNT INCLUDES THE [facility] PRN Reason: Protocol Cefepime HCl 1 gm/ Sodium (Chloride) 100 mls @ 200 mls/hr IVPB 1000,2200 COUNT [facility]CLUD[facility] Last Admin: 03/23/18 08:53 Dose: 100 mls Loperamide HCl (Imodium) 2 mg PO PRN PRN PRN Reason: Diarrhea/Loose Stools Loratadine (Claritin) 10 mg PO DAILYPRN PRN PRN Reason: Sinus Symptoms Magnesium Hydroxide (Milk Of Magnesium) 30 ml PO DAILYPRN PRN PRN Reason: Constipation Melatonin (Melatonin) 9 mg PO [facility] Last Admin: 03/22/18 21:55 Dose: 9 mg Mesalamine (Pentasa) 2,000 mg PO BID COUNT [facility]CLUD[facility] Last Admin: 03/23/18 08:52 Dose: 2,000 mg Mineral Oil/White Petrolatum (Eucerin Cream) 0 gm TOP BIDPRN PRN PRN Reason: Dry Skin Ondansetron HCl (Zofran Odt) 4 mg PO Q6H PRN PRN Reason: Nausea/Vomiting Ondansetron HCl (Zofran) 4 mg IVP Q6H PRN PRN Reason: Nausea/Vomiting Last Admin: 03/21/18 20:28 Dose: 4 mg Pantoprazole Sodium (Protonix) 40 mg IVP Q12HR COUNT [facility]CLUD[facility] Last Admin: 03/23/18 08:52 Dose: 40 mg Phenol (Chloraseptic [place] 180 Ml Bot) 0 ml PO PRN PRN PRN Reason: Sore Throat Senna (Senokot) 2 tab PO HSPRN PRN PRN Reason: Constipation Sodium Chloride ([place] Nasal [place] 0.65%) 0 ml EA NARE QIDPRN PRN PRN Reason: Nasal Congestion Zolpidem Tartrate (Ambien) 5 mg PO HSPRN PRN PRN Reason: Insomnia
--- NOTE | 2018-03-23 15:59 | PDOC.EVN ---
Event Note - Event Note Event Note: Late entry- Called on to family conference by daughter regarding updating the extended family visiting from out of town care discussed in extensive deals with 2 sisters,Brother in law ,daughter and granddaughter. All Qs answered. Discussed present illness, all diagnoses and ongoing treatment. discussed risk and benefits of each.Results of various tests made available as well.discussed prognosis with regards to each diagnosis including A-fib,CHF, Colitis, Pulmonary embolism and DVT. discussed that pt is high risk for decompensation . They wanted me to address other Physicians's opinion for the pt. Gently re directed them to the respective physicians.Answered Qs to the best of my knowledge for this pt. Code status brought up and even though they are not MPOA, they expressed wishes to get everything done to get their family member to get better. Assurance and emotional support also provided. they declined the need to talk to Palliative care at this time .will be available to answer any future Qs Total time spent in family conference -36 minutes.
[2018-03-23] MEDS: Atorvastatin Calcium 40 MG TAB PO SCH (21:17)
[2018-03-23] MEDS: Melatonin 3 MG TAB PO SCH (22:05)
[2018-03-24 05:33] LABS: Anion Gap 9 mmol/L (10-20); BUN (Urea Nitrogen) 14 mg/dL (9.8-20.1); Calc. Creatinine Clearance 103 mL/min (70-130); Calcium 7.6 mg/dL (7.8-10.44); Carbon Dioxide 29 mmol/L (23-31); Chloride 103 mmol/L (98-107); Estimated GFR-MDRD Greater than 90; Glucose 91 mg/dL (83-110); Potassium 3.1 mmol/L (3.5-5.1); Sodium 138 mmol/L (136-145)
[2018-03-24 06:10] LABS: Band 6 % (5-11); Hemoglobin 13.2 g/dL (12.0-16.0); Lymphocytes 16 % (21-51); MDiff Complete? YES; Mean Corpuscular HGB CONC 33.9 g/dL (32.0-36.0); Mean Corpuscular Hemoglobin 34.2 pg (27.0-31.0); Mean Platelet Volume 6.5 fL (7.4-10.4); Metamyelocyte 2 % (0-0); Monocytes 7 % (0-10); Neutrophil 69 % (42-75); PLT Morphology Comment Appears Adequate; Platelet Count 205 thou/uL (130-400); RBC Distribution Width 13.1 % (11.5-14.5); Red Blood Cell (RBC) Count 3.85 mill/uL (4.20-5.40); White Blood Cell (WBC) Count 17.5 thou/uL (4.8-10.8)
[2018-03-24] MEDS: HYDROcodone/Acetaminophen 5/325 mg Tablet PO PRN ×3 (06:53→23:54)
[2018-03-24] MEDS: Dronedarone HCl 400 MG TAB PO SCH ×2 (08:39→17:42)
[2018-03-24] MEDS: Folic Acid 1 MG TAB PO SCH (08:39)
[2018-03-24] MEDS: Pantoprazole 40 MG VIAL IVP SCH ×2 (08:39→20:53)
[2018-03-24] MEDS: Enoxaparin Sodium 80 MG/0.8 ML SYRINGE SC SCH ×2 (08:39→20:55)
[2018-03-24] MEDS: Cyanocobalamin (Vitamin B-12) 1,000 MCG TAB PO SCH (08:39)
--- NOTE | 2018-03-24 09:53 | PRG ---
DATE OF SERVICE: 03/24/2018 This morning she is still complaining of right-sided chest pain, worse with deep breathing and coughi ng, but no shortness of breath. PHYSICAL EXAMINATION: VITAL SIGNS: Sats 100% on room air, temperature 97, blood pressure is 139/75. CHEST: Chest reveals decreased breath sounds, no wheezing. CARDIAC: Normal S1, S2, no gallops. ABDOMEN: Soft. No masses. LABORATORY: White count 17,000, H&H 13 and 38, platelet count is normal, 69 segs, 6 bands. Electrol ytes are normal. IMPRESSION: 1. Pulmonary emboli. 2. Deep venous thrombosis. 3. Right-sided chest pain. 4. Leukocytosis. 5. Possibly pneumonia. 6. Fractured rib. PLAN: Continue antibiotics. Continue Lovenox. Consider switching over to Eliquis in the next 24-48 hours.
--- NOTE | 2018-03-24 10:29 | PQF ---
DATE: 03-24-18 ATTN: DR. MANUELA BLACKMON Please exercise your independent, professional judgment in responding to the clarification form. Clinical indicators are provided on the bottom of this form for your review Please check appropriate box(es): [ ] Sepsis due to: (Acute Ulcerative Colitis, etc.) _ [ ] Severe sepsis with acute organ dysfunction of: (Examples: respiratory failure, other) [ ] Septic Shock [ ] Other diagnosis [X ] Unable to determine In addition, please specify: Present on Admission (POA): [ ] Yes [ ] No [X ] Unable to determine For continuity of documentation, please document condition throughout progress notes and discharge summary. Thank You. CLINICAL INDICATORS - SIGNS / SYMPTOMS / LABS ER DIAGNOSIS: SEVERE SEPSIS, HX OF COLITIS, PSVT H&P: THE PATIENT HAD LEUKOCYTOSIS AND PATIENT WAS DIAGNOSED SEPTIC SHOCK. OTHER POSSIBILITY IS SEPSIS GIVEN LEUCOCYTOSIS, BUT CAN BE EXPLAINED BY RECENT USE OF STEROID. SEPSIS IS STILL CONSIDERATION AND THAT IS WHY WE WILL CONSIDER BROAD SPECTRUM ANTIBIOTIC ANTIBIOTIC THERAPY WITH MEROPENEM. CONSULT NOTE DR. SENIOR 03-22-18: POSSIBLE SEPSIS WITH ELEVATED WHITE COUNT, HYPOTENSION CONSULT NOTE DR. SANTOS 03-23-18: WE WOULD CONTINUE TO HOLD IV STEROIDS FOR NOW IN LIGHT OF POSSIBLE INFECTIOUS ETIOLOGY AND SEPTIC SHOCK CONTRIBUTING TO HYPOTENSION AND TACHYCARDIA PULSE: 03-21-18: 109, 109, 110, 104, 170, 126 03-22-18: 106, 103, 106, 102, 03-23-18: 111, 112, 112 RR: ER: 30, 25, 25 WBC: 03-21-18: 29.1, 23.0 03-22-18: 21.5 03-23-18: 23.3 03-24-18: 17.5 BANDS: 18: 15, 37 LACTIC ACID: 03-21-18: 4.1, 3.0 RISK FACTORS: ER: AIR MED TRANSFER FROM [facility] FOR SEPTIC SHOCK, HYPOTENSIVE WITH TACHYCARDIA, PT WAS ADMITTED FOR ULCERATIVE COLITIS AND D/C FROM [facility] YESTERDAY. LACTATE 5.6. ADVANCED AGE TREATMENTS: SEPSIS IS STILL CONSIDERATION AND THAT IS WHY WE WILL CONSIDER BROAD SPECTRUM ANTIBIOTIC ANTIBIOTIC THERAPY WITH MEROPENEM. MAR: MAXIPIME IV ER: IVF (This form is maintained as a part of the permanent medical record) 2014 [employer]. All Rights Reserved MONICA [email or web address] Office: [phone] [facility] HOSPITALMaria Luisa
--- NOTE | 2018-03-24 10:47 | PQF ---
DATE: 03-24-18 ATTN: DR. MANUELA BLACKMON Please exercise your independent, professional judgment in responding to the clarification form. Clinical indicators are provided on the bottom of this form for your review Please check appropriate box(s): [ ] NSTEMI [ ] AMI Type II [ X ] Demand Ischemia [ ] Other diagnosis [ ] Unable to determine In addition, please specify: Present on Admission (POA): [ X] Yes [ ] No [ ] Unable to determine CLINICAL INDICATORS - SIGNS / SYMPTOMS / LABS ER DX: SEVERE SEPSIS, HX OF COLITIS, PSVT H&P: A FIB WITH RVR, ATRIAL TACHYARRHYTHMIA, WILL CONSULT CARDIOLOGY, NON-ST -ELEVATION MD, TYPE 2 DEMAND ISCHEMIA 2/2 TACHYCARDIA AND HYPOPERFUSION. WE WILL DO SERIAL CE X3. ECHO, PATIENT WILL BE GIVEN ASPIRIN. PN 03-23-18: TROPONIN ELEVATED, LIKELY DEMAND ISCHEMIA FROM PE AND A FIB TROPONIN: 03-21-18: 0.319, 0.327, 0.309, 0.176 RISKS: H&P: A FIB WITH RVR, ATRIAL TACHYARRHYTHMIA, WILL CONSULT CARDIOLOGY , [id number] MD, TYPE 2 DEMAND ISCHEMIA 2/2 TACHYCARDIA AND HYPOPERFUSION. WE WILL DO SERIAL CE X3. ECHO, PATIENT WILL BE GIVEN ASPIRIN. TREATMENTS:H&P: A FIB WITH RVR, ATRIAL TACHYARRHYTHMIA, WILL CONSULT CARDIOLOGY, [id number] MD, TYPE 2 DEMAND ISCHEMIA 2/2 TACHYCARDIA AND HYPOPERFUSION. WE WILL DO SERIAL CE X3. ECHO, PATIENT WILL BE GIVEN ASPIRIN. CARDIAC MONITORING (This form is maintained as a part of the permanent medical record) 2014 [employer]. All Rights Reserved MONICA [email or web address] Office: [phone] HOSPITALMaria Luisa
[2018-03-24] MEDS: Potassium Chloride 20 MEQ/100 ML PREMIX BAG IVPB SCH ×2 (11:29→14:15)
[2018-03-24] MEDS: Cefepime 1 GM in Sodium Chloride 0.9% 100 ML IVPB SCH ×2 (11:29→22:17)
--- NOTE | 2018-03-24 11:52 | RAD ---
CHEST ONE VIEW: Comparison: 03-21-18 History: Right sided pain. Rule out rib fracture. FINDINGS: There are small bilateral pleural effusions. Chronic change of the lung parenchyma. No pneumothorax. Stable cardiac silhouette. No osseous abnormalities. IMPRESSION: 1. Small bilateral pleural effusions. 2. No radiographic evidence of a right sided rib fracture. Consider dedicated right rib radiograph se maxim for further evaluation. POS: BLANCA
--- NOTE | 2018-03-24 14:41 | PDOC.PN ---
- Subjective Encounter Start Date: 03/24/18 Encounter Start Time: 14:39 - Objective Resuscitation Status: Resuscitation Status FULL:Full Resuscitation MAR Reviewed: Yes Vital Signs & Weight: Vital Signs (12 hours) Temp Pulse Pulse Pulse Pulse Resp BP 03/24/18 11:24 98.0 F 106 H 19 03/24/18 10:58 104 H 101 H 147/68 H 03/24/18 08:58 97 100 106 H 131/82 03/24/18 08:10 97.8 F 95 03/24/18 08:00 97.8 F 95 20 03/24/18 03:56 98.0 F 100 20 BP BP BP Pulse Ox Pulse Ox Pulse Ox Pulse Ox 03/24/18 11:24 135/77 97 03/24/18 10:58 134/77 96 967 H 03/24/18 08:58 164/99 H 113/90 97 96 100 03/24/18 08:10 139/75 95 03/24/18 08:00 98 03/24/18 03:56 118/69 96 Weight Weight 185 lb I&O: 03/23/18 03/24/18 03/25/18 06:59 06:59 06:59 Intake Total 2400 1800 Output Total 2075 2300 Balance 325 -500 Result Diagrams: 03/24/18 04:27 03/24/18 04:27 Additional Labs: Microbiology 03/21/18 13:48 Urine jenkins catheter Urine Culture - Final NO GROWTH AT 48 HOURS 03/21/18 13:58 Venous blood - Right Hand Blood Culture - Preliminary NO GROWTH AT 48 HOURS 03/21/18 13:44 Venous blood - Left Hand Blood Culture - Preliminary NO GROWTH AT 48 HOURS labs reviewed Radiology Reviewed by me: Yes (CXR- no rib fracture right side) Phys Exam - Physical Examination Constitutional: NAD HEENT: PERRLA, moist MMs, sclera anicteric, oral pharynx no lesions Neck: no nodes, no JVD, supple, full ROM Respiratory: no wheezing, no rales, no rhonchi, clear to auscultation bilateral Cardiovascular: RRR, no significant murmur, no rub Gastrointestinal: soft, non-tender, no distention, positive bowel sounds Musculoskeletal: no edema, pulses present Neurological: non-focal, normal sensation, moves all 4 limbs Psychiatric: normal affect, A&O x 3 Skin: no rash Dx/Plan (1) Bilateral pulmonary embolism Code(s): I26.99 - OTHER PULMONARY EMBOLISM WITHOUT ACUTE COR PULMONALE Status : Acute Comment: on full anticoagulation (2) Left leg DVT Code(s): I82.402 - ACUTE EMBOLISM AND THOMBOS UNSP DEEP VEINS OF L LOW EXTREM Status: Acute Qualifiers: Chronicity: acute (3) Atrial fibrillation with RVR Code(s): I48.91 - UNSPECIFIED ATRIAL FIBRILLATION Status: Acute Comment: rate controlled on Amiodarone.NSR now (4) Troponin level elevated Code(s): R74.8 - ABNORMAL LEVELS OF OTHER SERUM ENZYMES Status: Acute Comment: Likley demand ischemia from PE and a-fib w RVR. troponin trending down (5) Acute diastolic CHF (congestive heart failure) Code(s): I50.31 - ACUTE DIASTOLIC (CONGESTIVE) HEART FAILURE Status: Resolved Comment: BNP>1000 (6) Ulcerative colitis, acute Code(s): K51.90 - ULCERATIVE COLITIS, UNSPECIFIED, WITHOUT COMPLICATIONS Status: Acute Comment: On Pentasa. Steroids stopped due to question of infection (7) HLD (hyperlipidemia) Code(s): E78.5 - HYPERLIPIDEMIA, UNSPECIFIED Status: Chronic (8) Physical deconditioning Code(s): R53.81 - OTHER MALAISE Status: Chronic - Plan plan discussed w/ family, PT/OT, respiratory therapy, incentive spirometry, out of bed/ambulate, DVT proph w/lovenox, DVT proph w/SCDs H/h stable. no overt bleed. cont lovenox BID for PE. -: cont empiric ABx though no evidence of infection.Cx all negative so far -: encourage OOB . -: NSR now. cont amiodarone -: monitor I/os. Monitor renal Fx * . improving-nile due to recent IV steroids. Cont Pentasa. am labs Review of Systems - Review of Systems Constitutional: weakness, malaise Respiratory: negative: Cough, Dry, Shortness of Breath, Hemoptysis, SOB with Excertion, Pleuritic Pain, Sputum, Wheezing Cardiovascular: negative: chest pain, palpitations, orthopnea, paroxysmal nocturnal dyspnea, edema, light headedness, other Gastrointestinal: negative: Nausea, Vomiting, Abdominal Pain, Diarrhea, Constipation, Melena, Hematochezia, Other Genitourinary: negative: Dysuria, Frequency, Incontinence, Hematuria, Retention , Other Musculoskeletal: negative: Neck Pain, Shoulder Pain, Arm Pain, Back Pain, Hand Pain, Leg Pain, Foot Pain, Other Skin: negative: Rash, Lesions, Lex, Bruising, Other - Medications/Allergies Allergies/Adverse Reactions: Allergies Allergy/AdvReac Type Severity Reaction Status Date / Time clindamycin [From Cleocin] Allergy Verified 03/10/18 13:44 levofloxacin Allergy Verified 03/10/18 13:44 Penicillins Allergy Verified 03/10/18 13:44 polyethylene glycol Allergy Verified 03/10/18 13:44 [From Colyte] polyethylene glycol 3350 Allergy Verified 03/10/18 13:44 [From Colyte] potassium chloride Allergy Verified 03/10/18 13:44 [From Colyte] sodium [From Colyte] Allergy Verified 03/10/18 13:44 sodium bicarbonate Allergy Verified 03/10/18 13:44 [From Colyte] sodium chloride [From Colyte] Allergy Verified 03/10/18 13:44 sodium sulfate [From Colyte] Allergy Verified 03/10/18 13:44 Sulfa (Sulfonamide Allergy Verified 03/10/18 13:44 Antibiotics) Medications: Current Medications Acetaminophen (Tylenol) 650 mg PO Q4H PRN PRN Reason: Headache/Fever or Pain Last Admin: 03/21/18 17:42 Dose: 650 mg Hydrocodone Bitart/Acetaminophen ([place] 5/325) 1 tab PO Q4H PRN PRN Reason: Moderate Pain (4-6) Last Admin: 03/24/18 11:42 Dose: 1 tab Al Hydroxide/Mg Hydroxide (Maalox) 30 ml PO Q6H PRN PRN Reason: Heartburn or Indigestion Artificial Tears (Tears Naturale) 0 drop EA EYE PRN PRN PRN Reason: Dry Eyes Atorvastatin Calcium (Lipitor) 40 mg PO HS [facility] Last Admin: 03/23/18 21:17 Dose: 40 mg Cyanocobalamin (Vitamin B-12) 1,000 mcg PO DAILY [facility] Last Admin: 03/24/18 08:39 Dose: 1,000 mcg Dronedarone (Multaq) 400 mg PO BID-[facility] Last Admin: 03/24/18 08:39 Dose: 400 mg Enoxaparin Sodium (Lovenox) 80 mg SC 0900,2100 [facility] Last Admin: 03/24/18 08:39 Dose: 80 mg Folic Acid (Folvite) 1 mg PO DAILY [facility] Last Admin: 03/24/18 08:39 Dose: 1 mg Guaifenesin (Robitussin Sf) 200 mg PO Q4H PRN PRN Reason: Cough Heparin Sodium (Porcine) (Heparin 1,000 Units/Ml (10 Ml)) 0 units SLOW IVP ASDIR [facility] PRN Reason: Protocol Cefepime HCl 1 gm/ Sodium (Chloride) 100 mls @ 200 mls/hr IVPB 1000,2200 [facility] Last Admin: 03/24/18 11:29 Dose: 100 mls Loperamide HCl (Imodium) 2 mg PO PRN PRN PRN Reason: Diarrhea/Loose Stools Loratadine (Claritin) 10 mg PO DAILYPRN PRN PRN Reason: Sinus Symptoms Magnesium Hydroxide (Milk Of Magnesium) 30 ml PO DAILYPRN PRN PRN Reason: Constipation Melatonin (Melatonin) 9 mg PO HS [facility] Last Admin: 03/23/18 22:05 Dose: 9 mg Mesalamine (Pentasa) 2,000 mg PO BID [facility] Last Admin: 03/24/18 08:39 Dose: 2,000 mg Mineral Oil/White Petrolatum (Eucerin Cream) 0 gm TOP BIDPRN PRN PRN Reason: Dry Skin Ondansetron HCl (Zofran Odt) 4 mg PO Q6H PRN PRN Reason: Nausea/Vomiting Ondansetron HCl (Zofran) 4 mg IVP Q6H PRN PRN Reason: Nausea/Vomiting Last Admin: 03/21/18 20:28 Dose: 4 mg Pantoprazole Sodium (Protonix) 40 mg IVP Q12HR [facility] Last Admin: 03/24/18 08:39 Dose: 40 mg Phenol (Chloraseptic [place] 180 Ml Bot) 0 ml PO PRN PRN PRN Reason: Sore Throat Potassium Chloride (K-Dur) 40 meq PO ONE [facility] Stop: 03/24/18 16:00 Senna (Senokot) 2 tab PO HSPRN PRN PRN Reason: Constipation Sodium Chloride ([place] Nasal [place] 0.65%) 0 ml EA NARE QIDPRN PRN PRN Reason: Nasal Congestion Sodium Chloride (Flush - Normal Saline) 10 ml IVF Q12HR [facility] Sodium Chloride (Flush - Normal Saline) 10 ml IVF PRN PRN PRN Reason: Saline Flush Zolpidem Tartrate (Ambien) 5 mg PO HSPRN PRN PRN Reason: Insomnia
[2018-03-24] MEDS: Potassium Chloride 20 MEQ TAB PO SCH ×2 (15:30→15:31)
[2018-03-24] MEDS ORDERED: predniSONE 20 MG TAB PO SCH (18:00)
--- NOTE | 2018-03-24 19:06 | PRG ---
DATE OF SERVICE: 03/24/2018 SUBJECTIVE: Ms. Chandra was readmitted with pulmonary embolism. She is doing well from a colon st andpoint. She has had no further rectal bleeding. Her bowel movements have been formed around 4 emeli es per day. She has no abdominal pain. She does complain of pain in her right ribs after a recent f all. PHYSICAL EXAMINATION: VITAL SIGNS: Temperature 98.7, pulse 106, oxygen saturation 97%, and blood pressure 135/77. GENERAL: She is in no acute distress. She is awake and alert, oriented x3. LUNGS: Clear to auscultation bilaterally. HEART: Tachycardic, S1 and S2. ABDOMEN: Soft, nontender, nondistended. Bowel sounds are present. EXTREMITIES: 1+ lower extremity edema. IMPRESSION: 1. Deep vein thrombosis and pulmonary embolism on enoxaparin. 2. New diagnosis of ulcerative colitis from the rectum to the transverse colon. She was started on IV steroids and transitioned to prednisone during her last hospitalization; however, she has not rest arted the steroids yet. She is clinically doing well on mesalamine, currently at a dose of 2000 mg t wice daily. RECOMMENDATIONS: 1. Restart prednisone taper. 2. Continue mesalamine. 3. Depending on her clinical course, she will most likely need to start chronic immune suppression. I would lean towards Entyvio for her. She had been on budesonide chronically over the last 3 months given by GI in [place] for history of microscopic colitis. However, this is a new diagnosis of chronic ulcerative colitis. Ultimately, she failed to respond adequately to the budesonide and that is why I would expect that she will require more aggressive chronic immune suppression after completing the steroids. We will see how she does with the mesalamine as well.
--- NOTE | 2018-03-24 20:50 | RAD ---
ABDOMEN ONE VIEW: HISTORY: Ileus. COMPARISON: None. FINDINGS: There is a dilated loop of bowel in the left lower quadrant of the abdomen, which may represent the t ransverse colon. There are phleboliths in the pelvis. Evaluation of free air is limited without an upright examination. Moderate levoscoliosis of the lumbar spine. IMPRESSION: Single dilated loop of bowel in the left lower quadrant of the abdomen, which may reflect the transve rse colon. This may be sequela of the patient's underlying known colitis. POS: BLANCA
[2018-03-24] MEDS: Atorvastatin Calcium 40 MG TAB PO SCH (20:54)
[2018-03-24] MEDS: Melatonin 3 MG TAB PO SCH (22:17)
[2018-03-25 06:06] LABS: #Eosinphils 0.3 thou/uL (0.0-0.7); #Lymphocytes 1.3 thou/uL (1.20-3.40); #Monocytes 0.3 thou/uL (0.11-0.59); #Neutrophils 13.7 thou/uL (1.40-6.50); %Basophils 0.2 % (0.0-1.0); %Eosinophils 1.9 % (0.0-10.0); %Lymphocytes 8.5 % (21.0-51.0); %Monocytes 1.9 % (0.0-10.0); %Neutrophils 87.5 % (42.0-75.0); Hemoglobin 12.7 g/dL (12.0-16.0); Mean Corpuscular HGB CONC 32.8 g/dL (32.0-36.0); Mean Corpuscular Hemoglobin 33.7 pg (27.0-31.0); Mean Platelet Volume 7.2 fL (7.4-10.4); Platelet Count 187 thou/uL (130-400); RBC Distribution Width 13.3 % (11.5-14.5); Red Blood Cell (RBC) Count 3.78 mill/uL (4.20-5.40); White Blood Cell (WBC) Count 15.6 thou/uL (4.8-10.8)
[2018-03-25 06:12] LABS: Anion Gap 11 mmol/L (10-20); BUN (Urea Nitrogen) 12 mg/dL (9.8-20.1); Calc. Creatinine Clearance 118 mL/min (70-130); Calcium 7.6 mg/dL (7.8-10.44); Carbon Dioxide 26 mmol/L (23-31); Chloride 102 mmol/L (98-107); Estimated GFR-MDRD Greater than 90; Glucose 128 mg/dL (83-110); Potassium 3.4 mmol/L (3.5-5.1); Sodium 136 mmol/L (136-145)
[2018-03-25] MEDS: Dronedarone HCl 400 MG TAB PO SCH ×2 (08:08→16:07)
[2018-03-25] MEDS: Cyanocobalamin (Vitamin B-12) 1,000 MCG TAB PO SCH (08:09)
[2018-03-25] MEDS: predniSONE 20 MG TAB PO SCH (08:09)
[2018-03-25] MEDS: Enoxaparin Sodium 80 MG/0.8 ML SYRINGE SC SCH ×2 (08:09→20:54)
[2018-03-25] MEDS: Folic Acid 1 MG TAB PO SCH (08:10)
[2018-03-25] MEDS: Pantoprazole 40 MG VIAL IVP SCH ×2 (08:11→20:54)
--- NOTE | 2018-03-25 09:07 | PRG ---
DATE OF SERVICE: 03/25/2018 She is better. She is weak. PHYSICAL EXAMINATION: VITAL SIGNS: Her sats are 95% on room air, respiration rate 18, temperature 98, blood pressure 150/7 0. CHEST: Chest reveals decreased breath sounds without any wheezing. CARDIAC: Normal S1, S2, no gallops. ABDOMEN: Soft, no masses. Chest x-ray yesterday shows pleural effusion, no fractured rib. White count 15,000, H&H 12 and 38, platelet count is 187. IMPRESSION: 1. Colitis. 2. Pulmonary embolus. 3. Severe deconditioning. 4. Stasis edema. PLAN: Could probably discontinue antibiotics as all cultures negative. I will switch her over to [place] [facility] tomorrow. Continue PT and supportive care. I will follow.
[2018-03-25] MEDS: Cefdinir 300 MG CAP PO SCH ×2 (12:05→20:55)
--- NOTE | 2018-03-25 14:39 | PDOC.PN ---
- Subjective Encounter Start Date: 03/25/18 Encounter Start Time: 14:36 Subjective: feels better.able to sit up in chair .eating a little better -: incontinent of stools - Objective Resuscitation Status: Resuscitation Status FULL:Full Resuscitation MAR Reviewed: Yes Vital Signs & Weight: Vital Signs (12 hours) Temp Pulse Pulse Pulse Resp BP BP 03/25/18 13:48 96 89 157/85 H 141/78 H 03/25/18 11:34 98.8 F 84 18 03/25/18 08:00 98.4 F 88 18 03/25/18 07:37 98.4 F 88 18 03/25/18 04:00 97.4 F L 89 14 03/25/18 03:46 BP Pulse Ox Pulse Ox Pulse Ox 03/25/18 13:48 97 98 03/25/18 11:34 130/89 99 03/25/18 08:00 95 03/25/18 07:37 150/71 H 98 03/25/18 04:00 134/70 95 03/25/18 03:46 94 L Weight Weight 185 lb 3.2 oz I&O: 03/24/18 03/25/18 03/26/18 06:59 06:59 06:59 Intake Total 1800 1225 Output Total 2300 925 Balance -500 300 Result Diagrams: 03/25/18 04:15 03/25/18 04:15 Additional Labs: Microbiology 03/21/18 13:48 Urine jenkins catheter Urine Culture - Final NO GROWTH AT 48 HOURS 03/21/18 13:58 Venous blood - Right Hand Blood Culture - Preliminary NO GROWTH AT 48 HOURS 03/21/18 13:44 Venous blood - Left Hand Blood Culture - Preliminary NO GROWTH AT 48 HOURS labs reviewed Radiology Reviewed by me: Yes (KUB-colonic distention,maily transverse megacolon ) Phys Exam - Physical Examination Constitutional: NAD HEENT: PERRLA, moist MMs, sclera anicteric, oral pharynx no lesions Neck: no nodes, no JVD, supple, full ROM Respiratory: no wheezing, no rales, no rhonchi, clear to auscultation bilateral Cardiovascular: RRR, no significant murmur, no rub Gastrointestinal: soft, non-tender distension better than yesterday Musculoskeletal: pulses present, edema present (improving) Neurological: non-focal, normal sensation, moves all 4 limbs Psychiatric: normal affect, A&O x 3 Dx/Plan (1) Bilateral pulmonary embolism Code(s): I26.99 - OTHER PULMONARY EMBOLISM WITHOUT ACUTE COR PULMONALE Status : Acute Comment: on full anticoagulation (2) Left leg DVT Code(s): I82.402 - ACUTE EMBOLISM AND THOMBOS UNSP DEEP VEINS OF L LOW EXTREM Status: Acute Qualifiers: Chronicity: acute (3) Atrial fibrillation with RVR Code(s): I48.91 - UNSPECIFIED ATRIAL FIBRILLATION Status: Acute Comment: rate controlled on Amiodarone.NSR now (4) Troponin level elevated Code(s): R74.8 - ABNORMAL LEVELS OF OTHER SERUM ENZYMES Status: Acute Comment: Likley demand ischemia from PE and a-fib w RVR. troponin trending down (5) Acute diastolic CHF (congestive heart failure) Code(s): I50.31 - ACUTE DIASTOLIC (CONGESTIVE) HEART FAILURE Status: Resolved Comment: BNP>1000 (6) Ulcerative colitis, acute Code(s): K51.90 - ULCERATIVE COLITIS, UNSPECIFIED, WITHOUT COMPLICATIONS Status: Acute Comment: On Pentasa. Steroids stopped due to question of infection,now restarted as infection is ruled out (7) HLD (hyperlipidemia) Code(s): E78.5 - HYPERLIPIDEMIA, UNSPECIFIED Status: Chronic (8) Physical deconditioning Code(s): R53.81 - OTHER MALAISE Status: Chronic - Plan plan discussed w/ family, continue antibiotics, PT/OT, respiratory therapy, incentive spirometry, out of bed/ambulate, DVT proph w/SCDs cont Lovenox BID. Po from tomorrow. -: H/h stable.cont to monitor -: cont prednisone and pentasa.OP f/u w GI.Monitor for complication -: Cont amiodarone.NSR.BP controlled -: Rehab eval.cont IMCU monitoring given severe clot burden * . Review of Systems - Review of Systems Constitutional: weakness, malaise. negative: fever, chills, sweats, other Respiratory: negative: Cough, Dry, Shortness of Breath, Hemoptysis, SOB with Excertion, Pleuritic Pain, Sputum, Wheezing Cardiovascular: negative: chest pain, palpitations, orthopnea, paroxysmal nocturnal dyspnea, edema, light headedness, other Gastrointestinal: Diarrhea. negative: Nausea, Vomiting, Abdominal Pain, Constipation, Melena, Hematochezia, Other Genitourinary: negative: Dysuria, Frequency, Incontinence, Hematuria, Retention , Other Musculoskeletal: negative: Neck Pain, Shoulder Pain, Arm Pain, Back Pain, Hand Pain, Leg Pain, Foot Pain, Other Skin: negative: Rash, Lesions, Lex, Bruising, Other Neurological: negative: Weakness, Numbness, Incoordination, Change in Speech, Confusion, Seizures, Other - Medications/Allergies Allergies/Adverse Reactions: Allergies Allergy/AdvReac Type Severity Reaction Status Date / Time clindamycin [From Cleocin] Allergy Verified 03/10/18 13:44 levofloxacin Allergy Verified 03/10/18 13:44 Penicillins Allergy Verified 03/10/18 13:44 polyethylene glycol Allergy Verified 03/10/18 13:44 [From Colyte] polyethylene glycol 3350 Allergy Verified 03/10/18 13:44 [From Colyte] potassium chloride Allergy Verified 03/10/18 13:44 [From Colyte] sodium [From Colyte] Allergy Verified 03/10/18 13:44 sodium bicarbonate Allergy Verified 03/10/18 13:44 [From Colyte] sodium chloride [From Colyte] Allergy Verified 03/10/18 13:44 sodium sulfate [From Colyte] Allergy Verified 03/10/18 13:44 Sulfa (Sulfonamide Allergy Verified 03/10/18 13:44 Antibiotics) Medications: Current Medications Acetaminophen (Tylenol) 650 mg PO Q4H PRN PRN Reason: Headache/Fever or Pain Last Admin: 03/21/18 17:42 Dose: 650 mg Hydrocodone Bitart/Acetaminophen ([place] 5/325) 1 tab PO Q4H PRN PRN Reason: Moderate Pain (4-6) Last Admin: 03/24/18 23:54 Dose: 1 tab Al Hydroxide/Mg Hydroxide (Maalox) 30 ml PO Q6H PRN PRN Reason: Heartburn or Indigestion Artificial Tears (Tears Naturale) 0 drop EA EYE PRN PRN PRN Reason: Dry Eyes Atorvastatin Calcium (Lipitor) 40 mg PO HS DARIUS Last Admin: 03/24/18 20:54 Dose: 40 mg Cefdinir (Omnicef) 300 mg PO BID DARIUS Stop: 03/29/18 09:01 Last Admin: 03/25/18 12:05 Dose: 300 mg Cyanocobalamin (Vitamin B-12) 1,000 mcg PO DAILY [facility] Last Admin: 03/25/18 08:09 Dose: 1,000 mcg Dronedarone (Multaq) 400 mg PO BID-[facility] Last Admin: 03/25/18 08:08 Dose: 400 mg Enoxaparin Sodium (Lovenox) 80 mg SC 0900,2100 [facility] Last Admin: 03/25/18 08:09 Dose: 80 mg Folic Acid (Folvite) 1 mg PO DAILY [facility] Last Admin: 03/25/18 08:10 Dose: 1 mg Guaifenesin (Robitussin Sf) 200 mg PO Q4H PRN PRN Reason: Cough Heparin Sodium (Porcine) (Heparin 1,000 Units/Ml (10 Ml)) 0 units SLOW IVP ASDIR [facility] PRN Reason: Protocol Loperamide HCl (Imodium) 2 mg PO PRN PRN PRN Reason: Diarrhea/Loose Stools Loratadine (Claritin) 10 mg PO DAILYPRN PRN PRN Reason: Sinus Symptoms Magnesium Hydroxide (Milk Of Magnesium) 30 ml PO DAILYPRN PRN PRN Reason: Constipation Melatonin (Melatonin) 9 mg PO [facility] Last Admin: 03/24/18 22:17 Dose: 9 mg Mesalamine (Pentasa) 2,000 mg PO BID [facility] Last Admin: 03/25/18 08:10 Dose: 2,000 mg Mineral Oil/White Petrolatum (Eucerin Cream) 0 gm TOP BIDPRN PRN PRN Reason: Dry Skin Ondansetron HCl (Zofran Odt) 4 mg PO Q6H PRN PRN Reason: Nausea/Vomiting Ondansetron HCl (Zofran) 4 mg IVP Q6H PRN PRN Reason: Nausea/Vomiting Last Admin: 03/21/18 20:28 Dose: 4 mg Pantoprazole Sodium (Protonix) 40 mg IVP Q12HR [facility] Last Admin: 03/25/18 08:11 Dose: 40 mg Phenol (Chloraseptic [place] 180 Ml Bot) 0 ml PO PRN PRN PRN Reason: Sore Throat Potassium [facility] Stop: 03/30/18 08:01 Last Admin: 03/25/18 08:09 Dose: 40 mg Prednisone (Prednisone) 30 mg PO QAM-WM [facility] Stop: 04/06/18 08:01 Prednisone (Prednisone) 20 mg PO QAM-WM [facility] Stop: 04/13/18 08:01 Prednisone (Prednisone) 10 mg PO QAM-WM [facility] Stop: 04/20/18 08:01 Prednisone (Prednisone) 5 mg PO QAM-WM [facility] Stop: 04/27/18 08:01 Senna (Senokot) 2 tab PO HSPRN PRN PRN Reason: Constipation Sodium Chloride (Quay Nasal [place] 0.65%) 0 ml EA NARE QIDPRN PRN PRN Reason: Nasal Congestion Sodium Chloride (Flush - Normal Saline) 10 ml IVF Q12HR [facility] Last Admin: 03/25/18 08:11 Dose: 10 ml Sodium Chloride (Flush - Normal Saline) 10 ml IVF PRN PRN PRN Reason: Saline Flush Zolpidem Tartrate (Ambien) 5 mg PO HSPRN PRN PRN Reason: Insomnia
[2018-03-25] MEDS: Potassium Chloride 20 MEQ TAB PO SCH (16:07)
[2018-03-25] MEDS: Melatonin 3 MG TAB PO SCH (20:55)
[2018-03-25] MEDS: Atorvastatin Calcium 40 MG TAB PO SCH (20:55)
[2018-03-26 04:28] LABS: Anion Gap 8 mmol/L (10-20); BUN (Urea Nitrogen) 10 mg/dL (9.8-20.1); Calc. Creatinine Clearance 118 mL/min (70-130); Calcium 7.7 mg/dL (7.8-10.44); Carbon Dioxide 27 mmol/L (23-31); Chloride 105 mmol/L (98-107); Estimated GFR-MDRD Greater than 90; Glucose 121 mg/dL (83-110); Potassium 3.2 mmol/L (3.5-5.1); Sodium 137 mmol/L (136-145)
[2018-03-26 04:42] LABS: Band 8 % (5-11); Eosinophils 1 % (0-10); Hemoglobin 11.4 g/dL (12.0-16.0); Lymphocytes 16 % (21-51); MDiff Complete? YES; Mean Corpuscular HGB CONC 34.3 g/dL (32.0-36.0); Mean Corpuscular Hemoglobin 34.6 pg (27.0-31.0); Mean Platelet Volume 6.2 fL (7.4-10.4); Monocytes 5 % (0-10); Neutrophil 70 % (42-75); PLT Morphology Comment Appears Adequate; Platelet Count 210 thou/uL (130-400); RBC Distribution Width 13.1 % (11.5-14.5)
[2018-03-26 04:55] LABS: Digoxin 0.46 ng/mL (0.8-2.0)
[2018-03-26] MEDS: HYDROcodone/Acetaminophen 5/325 mg Tablet PO PRN ×4 (06:00→22:01)
[2018-03-26] MEDS ORDERED: Lidocaine 1% (PF) 30 ML VIAL ONE ×2 (09:03→09:20)
[2018-03-26] MEDS ORDERED: Heparin 0 ML ONE (09:20)
[2018-03-26] MEDS ORDERED: Iopamidol 370 76% 50 ML VIAL FS ONE (09:59)
[2018-03-26] MEDS ORDERED: Ondansetron HCl/PF 4 MG/2 ML Vial ONE (10:07)
--- NOTE | 2018-03-26 10:22 | OP ---
DATE OF PROCEDURE: 03/26/2018 PROCEDURE PERFORMED: Cordis TRAPEASE permanent IVC filter placement. The right femoral vein with fl uoroscopic and ultrasonographic guidance. PREOPERATIVE DIAGNOSES: Left lower extremity deep venous thrombosis with pulmonary emboli and contra indication to anticoagulation. POSTOPERATIVE DIAGNOSES: Left lower extremity deep venous thrombosis with pulmonary emboli and contr aindication to anticoagulation. SURGEON: Deng Hernandez M.D. ANESTHESIA: A 1% lidocaine local anesthesia. INDICATIONS: The patient is an 83-year-old woman with ulcerative colitis, who has had pulmonary embo li from left lower extremity source. She was started on conventional anticoagulation, but began havi ng GI bleeding. She is now taken to the dental laboratory assistant for vena cava filter placement. FINDINGS: Renal veins identified at inferior border of L1. The superior tip of the device was place d just below the superior border of L2. Total of 10 mL of Optiray contrast and 1.8 minutes of fluoro scopy time were utilized. NARRATIVE REPORT: After informed consent was obtained, the patient was taken to the dental laboratory assistant and lise meeta on the cath table. Her groins were prepped and draped in sterile fashion. An ultrasound was use d to identify the femoral vessels and confirmed compressibility of the femoral vein on the right side . A 1% lidocaine was then used to infiltrate the skin and subcutaneous tissues. A large bore needle was used to cannulate the right renal vein through which a guidewire was placed and position confirm ed by fluoroscopy. Tract was dilated and a dilator and sheath were introduced over the wire. The sh eath and dilator were injected with contrast material identifying the orifices of the renal veins. U sing that as landmarks, the dilator was removed and the device was introduced through the sheath with the tip of the sheath at the superior margin of the L2 vertebral body. The sheath was withdrawn dep loying the device, the sheath was removed and pressure was held to achieve hemostasis. The patient w as then returned to her room in stable condition.
[2018-03-26 10:45] LABS: Hemoglobin 11.2 g/dL (12.0-16.0); Platelet Count 205 thou/uL (130-400)
[2018-03-26] MEDS: Pantoprazole 40 MG VIAL IVP SCH ×2 (11:13→21:02)
[2018-03-26] MEDS: Dronedarone HCl 400 MG TAB PO SCH ×2 (11:17→17:37)
[2018-03-26] MEDS: Digoxin 0.125 MG TAB PO SCH (11:17)
[2018-03-26] MEDS: Cyanocobalamin (Vitamin B-12) 1,000 MCG TAB PO SCH (11:18)
[2018-03-26] MEDS: Cefdinir 300 MG CAP PO SCH ×2 (11:18→21:02)
[2018-03-26] MEDS: Potassium Chloride 20 MEQ TAB PO SCH ×2 (11:18→17:37)
[2018-03-26] MEDS: Folic Acid 1 MG TAB PO SCH (11:18)
[2018-03-26] MEDS: Ondansetron HCl/PF 4 MG/2 ML Vial IVP PRN (11:32)
--- NOTE | 2018-03-26 11:40 | CON ---
DATE OF CONSULTATION: 03/26/2018 REQUESTING PHYSICIAN: Dr. Fraser. REASON FOR CONSULTATION: Pulmonary emboli with contraindication to anticoagulation. HISTORY OF PRESENT ILLNESS: The patient is an 83-year-old woman with frequent bloody stools, who was recently discharged after a 10-day hospitalization with one of these flareups of ulcerative colitis. She presented with chest pain in the general area of the right costal margin. She was found to hav e pulmonary emboli and DVT in the left lower extremity. She was started on Lovenox, but had recurren ce of her bloody bowel movements. PAST MEDICAL HISTORY: Primarily significant for her ulcerative colitis. MEDICATIONS: At the time of her recent discharge were Lipitor, Prilosec, Pentasa, Florastor, prednis one, and vitamin C. ALLERGIES: She reports multiple medical allergies. REVIEW OF SYSTEMS: Most notable for her right costal margin pain and bloody bowel movements. PHYSICAL EXAMINATION: VITAL SIGNS: On exam, her temperature is 98.6, heart rate is 98, blood pressure 111/70. Room air O2 sats are 96%. LUNGS: She has clear breath sounds. CARDIOVASCULAR: Regular rate and rhythm. ABDOMEN: Soft. EXTREMITIES: Nontender. LABORATORY AND X-RAY FINDINGS: Her CT scan shows a pulmonary emboli and the very inferior extent of the CT scan shows normal size vena cava with right and left renal veins coming at about the level of the inferior margin of L1 or superior margin of L2. On laboratory exam, her hemoglobin had been in t he 13-13.5 range. At around the time of her discharge, it was 12.7 yesterday morning and it is now 1 1.4. Her creatinine is 0.48. IMPRESSION AND RECOMMENDATIONS: Deep venous thrombosis with pulmonary embolism with contraindication to anticoagulation. I think an inferior vena cava filter placement is entirely appropriate.
--- NOTE | 2018-03-26 12:57 | PRG ---
DATE OF SERVICE: 03/26/2018 SUBJECTIVE: Ms. Chandra has had increased liquidy red bloody diarrhea. She has no abdominal pain, but she has had a decrease in her appetite. Her Lovenox was held this morning. She did have a decr ease in her hemoglobin from 12.7 yesterday to 11.2 today associated with the bleeding. She had an IV C filter placed due to the pulmonary embolism and DVT. OBJECTIVE: VITAL SIGNS: Temperature 97.7, pulse 103, blood pressure 103/66. GENERAL: She is in no acute distress. She is alert and oriented x3. LUNGS: Clear to auscultation bilaterally. HEART: Regular rate and rhythm. ABDOMEN: Soft, nontender, nondistended. EXTREMITIES: No lower extremity edema. IMPRESSION: New diagnosis of ulcerative colitis from the rectum to the transverse colon. She had in itial clinical improvement with steroids, but then these were held due to concern about infection and then restarted again a couple of days ago. She started back with rectal bleeding last night with mu ltiple red bloody stools. RECOMMENDATIONS: 1. Switch back to IV methylprednisolone 20 mg q.8h. 2. I believe she should be able to restart full anticoagulation with Lovenox later this evening. I will continue follow her hemoglobin.
--- NOTE | 2018-03-26 13:18 | PDOC.PN ---
- Subjective Encounter Start Date: 03/26/18 Encounter Start Time: 13:16 Subjective: multiple bloody BMs since yesterday.no abd pain.no N/V -: denies any SOB/CP -: c/p poor apppetite - Objective Resuscitation Status: Resuscitation Status FULL:Full Resuscitation MAR Reviewed: Yes Vital Signs & Weight: Vital Signs (12 hours) Temp Pulse Resp BP Pulse Ox 03/26/18 11:43 97.7 F 103 H 18 103/66 99 03/26/18 11:17 108 H 03/26/18 08:00 98.6 F 98 17 96 03/26/18 07:26 98.6 F 98 17 111/70 97 03/26/18 06:00 102 H 18 111/84 03/26/18 04:00 86 18 131/70 97 03/26/18 03:52 98.4 F 79 16 140/73 97 Weight Weight 185 lb 14.4 oz I&O: 03/25/18 03/26/18 03/27/18 06:59 06:59 06:59 Intake Total 1225 1520 Output Total 925 875 Balance 300 645 Result Diagrams: 03/26/18 10:32 03/26/18 03:54 Additional Labs: Microbiology 03/21/18 13:48 Urine jenkins catheter Urine Culture - Final NO GROWTH AT 48 HOURS 03/21/18 13:58 Venous blood - Right Hand Blood Culture - Preliminary NO GROWTH AT 48 HOURS 03/21/18 13:44 Venous blood - Left Hand Blood Culture - Preliminary NO GROWTH AT 48 HOURS labs reviewed Phys Exam - Physical Examination Constitutional: NAD HEENT: PERRLA, moist MMs, sclera anicteric, oral pharynx no lesions Neck: no nodes, no JVD, supple, full ROM Respiratory: no wheezing, no rales, no rhonchi, clear to auscultation bilateral Cardiovascular: RRR, no significant murmur Gastrointestinal: soft, non-tender, no distention, positive bowel sounds Musculoskeletal: pulses present, edema present Neurological: non-focal, normal sensation, moves all 4 limbs Psychiatric: normal affect, A&O x 3 Skin: no rash Dx/Plan (1) Bilateral pulmonary embolism Code(s): I26.99 - OTHER PULMONARY EMBOLISM WITHOUT ACUTE COR PULMONALE Status : Acute Comment: Anticoagulation held due to blood in stools. (2) Left leg DVT Code(s): I82.402 - ACUTE EMBOLISM AND THOMBOS UNSP DEEP VEINS OF L LOW EXTREM Status: Acute Qualifiers: Chronicity: acute (3) Atrial fibrillation with RVR Code(s): I48.91 - UNSPECIFIED ATRIAL FIBRILLATION Status: Acute Comment: rate controlled on Amiodarone.NSR now (4) Troponin level elevated Code(s): R74.8 - ABNORMAL LEVELS OF OTHER SERUM ENZYMES Status: Acute Comment: Likley demand ischemia from PE and a-fib w RVR. troponin trending down (5) Acute diastolic CHF (congestive heart failure) Code(s): I50.31 - ACUTE DIASTOLIC (CONGESTIVE) HEART FAILURE Status: Resolved Comment: BNP>1000 (6) Ulcerative colitis, acute Code(s): K51.90 - ULCERATIVE COLITIS, UNSPECIFIED, WITHOUT COMPLICATIONS Status: Acute Comment: On Pentasa. Steroids stopped due to question of infection,now restarted as infection is ruled out. (7) HLD (hyperlipidemia) Code(s): E78.5 - HYPERLIPIDEMIA, UNSPECIFIED Status: Chronic (8) Physical deconditioning Code(s): R53.81 - OTHER MALAISE Status: Chronic - Plan plan discussed w/ family, PT/OT, out of bed/ambulate, DVT proph w/SCDs cont IV steroids,Pentasa. H/H q 4 h.type & cross & transfuse prn -: discussed w PCCM & GI.cont to monitor. -: ?restart Anticoagulation w precaution given massive saddle PE-defer to PCCM -: hemodynamically stable.cont to monitor.encourage PO intake -: cont Multaq for a-fib. * .No evidence of infection. cont empiric ABx per PCCM * increased IV steroids dose for colitis * High risk of decompensation.cont CCU monitoring Review of Systems - Review of Systems Constitutional: weakness, malaise. negative: fever, chills, sweats, other Respiratory: negative: Cough, Dry, Shortness of Breath, Hemoptysis, SOB with Excertion, Pleuritic Pain, Sputum, Wheezing Cardiovascular: negative: chest pain, palpitations, orthopnea, paroxysmal nocturnal dyspnea, edema, light headedness, other Gastrointestinal: Diarrhea, Hematochezia. negative: Nausea, Vomiting, Abdominal Pain, Constipation, Melena, Other Genitourinary: negative: Dysuria, Frequency, Incontinence, Hematuria, Retention , Other Musculoskeletal: negative: Neck Pain, Shoulder Pain, Arm Pain, Back Pain, Hand Pain, Leg Pain, Foot Pain, Other Neurological: negative: Weakness, Numbness, Incoordination, Change in Speech, Confusion, Seizures, Other - Medications/Allergies Allergies/Adverse Reactions: Allergies Allergy/AdvReac Type Severity Reaction Status Date / Time clindamycin [From Cleocin] Allergy Verified 03/10/18 13:44 levofloxacin Allergy Verified 03/10/18 13:44 Penicillins Allergy Verified 03/10/18 13:44 polyethylene glycol Allergy Verified 03/10/18 13:44 [From Colyte] polyethylene glycol 3350 Allergy Verified 03/10/18 13:44 [From Colyte] potassium chloride Allergy Verified 03/10/18 13:44 [From Colyte] sodium [From Colyte] Allergy Verified 03/10/18 13:44 sodium bicarbonate Allergy Verified 03/10/18 13:44 [From Colyte] sodium chloride [From Colyte] Allergy Verified 03/10/18 13:44 sodium sulfate [From Colyte] Allergy Verified 03/10/18 13:44 Sulfa (Sulfonamide Allergy Verified 03/10/18 13:44 Antibiotics) Medications: Current Medications Acetaminophen (Tylenol) 650 mg PO Q4H PRN PRN Reason: Headache/Fever or Pain Last Admin: 03/21/18 17:42 Dose: 650 mg Hydrocodone Bitart/Acetaminophen ([place] 5/325) 1 tab PO Q4H PRN PRN Reason: Moderate Pain (4-6) Last Admin: 03/26/18 11:21 Dose: 1 tab Al Hydroxide/Mg Hydroxide (Maalox) 30 ml PO Q6H PRN PRN Reason: Heartburn or Indigestion Artificial Tears (Tears Naturale) 0 drop EA EYE PRN PRN PRN Reason: Dry Eyes Atorvastatin Calcium (Lipitor) 40 mg PO HS [facility] Last Admin: 03/25/18 20:55 Dose: 40 mg Cefdinir (Omnicef) 300 mg PO BID [facility] Stop: 03/29/18 09:01 Last Admin: 03/26/18 11:18 Dose: 300 mg Cyanocobalamin (Vitamin B-12) 1,000 mcg PO DAILY [facility] Last Admin: 03/26/18 11:18 Dose: 1,000 mcg Digoxin (Lanoxin) 0.125 mg PO DAILY [facility] Last Admin: 03/26/18 11:17 Dose: 0.125 mg Dronedarone (Multaq) 400 mg PO BID-[facility] Last Admin: 03/26/18 11:17 Dose: 400 mg Folic Acid (Folvite) 1 mg PO DAILY [facility] Last Admin: 03/26/18 11:18 Dose: 1 mg Guaifenesin (Robitussin Sf) 200 mg PO Q4H PRN PRN Reason: Cough Loperamide HCl (Imodium) 2 mg PO PRN PRN PRN Reason: Diarrhea/Loose Stools Loratadine (Claritin) 10 mg PO DAILYPRN PRN PRN Reason: Sinus Symptoms Magnesium Hydroxide (Milk Of Magnesium) 30 ml PO DAILYPRN PRN PRN Reason: Constipation Melatonin (Melatonin) 9 mg PO [facility] Last Admin: 03/25/18 20:55 Dose: 9 mg Mesalamine (Pentasa) 2,000 mg PO BID [facility] Last Admin: 03/26/18 11:36 Dose: 2,000 mg Methylprednisolone Sodium Succinate (Solu-Medrol) 20 mg IVP Q8HR [facility] Mineral Oil/White Petrolatum (Eucerin Cream) 0 gm TOP BIDPRN PRN PRN Reason: Dry Skin Ondansetron HCl (Zofran Odt) 4 mg PO Q6H PRN PRN Reason: Nausea/Vomiting Ondansetron HCl (Zofran) 4 mg IVP Q6H PRN PRN Reason: Nausea/Vomiting Last Admin: 03/26/18 11:32 Dose: 4 mg Pantoprazole Sodium (Protonix) 40 mg IVP Q12HR [facility] Last Admin: 03/26/18 11:13 Dose: 40 mg Phenol (Chloraseptic [place] 180 Ml Bot) 0 ml PO PRN PRN PRN Reason: Sore Throat Potassium Chloride (K-Dur) 20 meq PO BID-[facility] Last Admin: 03/26/18 11:18 Dose: 20 meq Senna (Senokot) 2 tab PO HSPRN PRN PRN Reason: Constipation Sodium Chloride ([place] Nasal [place] 0.65%) 0 ml EA NARE QIDPRN PRN PRN Reason: Nasal Congestion Sodium Chloride (Flush - Normal Saline) 10 ml IVF Q12HR [facility] Last Admin: 03/26/18 11:18 Dose: 10 ml Sodium Chloride (Flush - Normal Saline) 10 ml IVF PRN PRN PRN Reason: Saline Flush Zolpidem Tartrate (Ambien) 5 mg PO HSPRN PRN PRN Reason: Insomnia
[2018-03-26 14:27] LABS: Hemoglobin 11.2 g/dL (12.0-16.0)
--- NOTE | 2018-03-26 15:55 | PRG ---
DATE OF SERVICE: 03/26/2018 SERVICE: Pulmonary Medicine. INTERVAL HISTORY: Patient is doing fine from a respiratory standpoint. She denies any current chest pain, nausea, vomiting, fevers or chills. Otherwise, there has been no overnight events. She ended up going for an IVC filter this morning. Her anticoagulation was held for that procedure, but we we re going to getting it back on. I have spoken with GI. He says it is perfectly reasonable to contin ue with anticoagulation course because the patient is really not having a discrete bleeding episode. It is really more of diffuse inflammatory changes with oozing of blood. PHYSICAL EXAMINATION: VITAL SIGNS: Afebrile, pulse 105, blood pressure 115/72, respirations 17, saturation 92% on room air . GENERAL: The patient is awake, alert, no apparent distress. LUNGS: Decent air entry. There is no prolonged expiratory phase, wheezing present. HEART: Normal rate and regular. ABDOMEN: Soft, nontender, and nondistended. Bowel sounds are positive. MUSCULOSKELETAL: No cyanosis or clubbing. No pitting in the bilateral lower extremities. NEUROLOGIC: Grossly nonfocal. LABORATORY DATA: Hemoglobin 11.2, WBC 17.0, platelets 210,000. Basic metabolic profile is essential ly unremarkable except for potassium of 3.2. Blood cultures x2 and urine culture is unremarkable. ASSESSMENT: 1. Pulmonary embolism. 2. Ulcerative colitis. 3. Deconditioning, severe. 4. Hypokalemia. 5. Status post IVC filter placement, postop day 0. DISCUSSION AND PLAN: I will replace potassium. We will restart her full dose anticoagulation right now. We will give her 1.5 mg/k subcu x1 and restart that medication first thing in the morning. If she tolerates this, I think it would be reasonable to switch her to a direct oral anticoagulant. Pul monary or Critical Care will continue to follow along while she remains in this location. Multiple d ose of potassium will be provided today.
[2018-03-26] MEDS ORDERED: Potassium Chloride 20 MEQ TAB PO SCH (16:00)
[2018-03-26] MEDS: predniSONE 20 MG TAB PO SCH (18:11)
[2018-03-26] MEDS: metroNIDAZOLE 500 MG TAB PO SCH (21:02)
[2018-03-26] MEDS: Atorvastatin Calcium 40 MG TAB PO SCH (21:02)
[2018-03-26] MEDS: Enoxaparin Sodium 80 MG/0.8 ML SYRINGE SC SCH (21:03)
[2018-03-26] MEDS: Melatonin 3 MG TAB PO SCH (21:03)
[2018-03-27 05:04] LABS: Anion Gap 10 mmol/L (10-20); BUN (Urea Nitrogen) 21 mg/dL (9.8-20.1); Calc. Creatinine Clearance 78 mL/min (70-130); Calcium 7.9 mg/dL (7.8-10.44); Carbon Dioxide 25 mmol/L (23-31); Chloride 107 mmol/L (98-107); Estimated GFR-MDRD 76; Glucose 125 mg/dL (83-110); Potassium 5.2 mmol/L (3.5-5.1); Sodium 137 mmol/L (136-145)
[2018-03-27 05:30] LABS: Band 16 % (5-11); Lymphocytes 8 % (21-51); MDiff Complete? YES; Mean Corpuscular HGB CONC 33.6 g/dL (32.0-36.0); Mean Corpuscular Hemoglobin 34.4 pg (27.0-31.0); Mean Platelet Volume 6.7 fL (7.4-10.4); Monocytes 1 % (0-10); Neutrophil 75 % (42-75); Platelet Count 216 thou/uL (130-400); RBC Distribution Width 13.4 % (11.5-14.5); Red Blood Cell (RBC) Count 2.92 mill/uL (4.20-5.40); White Blood Cell (WBC) Count 26.6 thou/uL (4.8-10.8)
[2018-03-27] MEDS: Dronedarone HCl 400 MG TAB PO SCH ×2 (06:56→15:48)
[2018-03-27] MEDS: HYDROcodone/Acetaminophen 5/325 mg Tablet PO PRN ×4 (06:56→20:35)
--- NOTE | 2018-03-27 09:12 | PRG ---
DATE OF SERVICE: 03/27/2018 This morning she is awake, alert, and responsive, complaining of abdominal pain. PHYSICAL EXAMINATION: VITAL SIGNS: Sats are 96 on room air, respirations 16, temperature 98, pulse 93, blood pressure 150/ 72. CHEST: Chest reveals decreased breath sounds, no wheezing. CARDIAC: Normal S1, S2, no gallops. ABDOMEN: Soft. LABORATORY DATA: White count is 26,000. H&H 10 and 29, platelet count 216. Electrolytes are normal . IMPRESSION: 1. Status post colitis. 2. Pulmonary emboli. 3. Deep venous thrombosis. 4. Status post inferior cava filter placed in for gastrointestinal bleeding. PLAN: Continue Lovenox for now. Will discuss with GI to switch over to Eliquis. Otherwise, empiric antibiotics, supportive care. I will follow.
[2018-03-27] MEDS: Cefdinir 300 MG CAP PO SCH (09:53)
[2018-03-27] MEDS: Acetaminophen 325 MG TAB PO PRN (09:57)
[2018-03-27] MEDS: Digoxin 0.125 MG TAB PO SCH (09:58)
[2018-03-27] MEDS: Folic Acid 1 MG TAB PO SCH (09:58)
[2018-03-27] MEDS: Pantoprazole 40 MG VIAL IVP SCH ×2 (09:58→20:31)
[2018-03-27] MEDS: metroNIDAZOLE 500 MG TAB PO SCH ×3 (09:58→20:31)
[2018-03-27] MEDS: Cyanocobalamin (Vitamin B-12) 1,000 MCG TAB PO SCH (09:58)
[2018-03-27] MEDS: Enoxaparin Sodium 80 MG/0.8 ML SYRINGE SC SCH (09:58)
[2018-03-27] MEDS: Potassium Chloride 20 MEQ TAB PO SCH (12:32)
--- NOTE | 2018-03-27 13:11 | PRG ---
DATE OF SERVICE: 03/27/2018 SUBJECTIVE: Ms. Chandra has had no further rectal bleeding today. She had a small loose bowel mov ement this morning. She still has lower abdominal pain which is stable. PHYSICAL EXAMINATION: VITAL SIGNS: Temperature 97.4, pulse 94, blood pressure 129/69. LABORATORY DATA: Her white blood cell count is 26,000. Hemoglobin 10.0, platelets 216. Creatinine 0.73. IMPRESSION: 1. Chronic ulcerative colitis of the transverse and left colon. She has been started on IV steroids and the bleeding has resolved. Her diarrhea is improving. She still has some stable lower abdomina l pain. Her white blood cell count did increase today; however, this could be a reaction to the ster oids. Given that she developed this flare despite having been on 3 months of oral budesonide, she is unlikely to maintain remission after just steroid treatment. She will require longer term immune agudelo ppression. 2. Deep venous thrombosis with pulmonary embolism. RECOMMENDATIONS: 1. We will transition from IV methylprednisolone to oral prednisone tomorrow or the next day. 2. Continue to encourage ambulation with physical therapy. 3. She can change to oral anticoagulation from a GI standpoint. 4. We will continue to work to get approval for Entyvio for long-term treatment of her inflammatory bowel disease. 5. Continue mesalamine.
--- NOTE | 2018-03-27 17:36 | PDOC.PN ---
- Subjective Encounter Start Date: 03/27/18 Encounter Start Time: 17:35 Subjective: feels better but still not eating much. -: still c/o some abd pain -: no more bleeding NH.NL BM this morning - Objective Resuscitation Status: Resuscitation Status FULL:Full Resuscitation MAR Reviewed: Yes Vital Signs & Weight: Vital Signs (12 hours) Temp Pulse Resp BP Pulse Ox 03/27/18 15:24 98.6 F 101 H 18 118/70 93 L 03/27/18 11:09 97.4 F L 94 16 129/69 94 L 03/27/18 09:58 93 03/27/18 08:00 98 F 93 16 98 03/27/18 07:27 98.0 F 93 17 153/72 H 96 Weight Weight 186 lb 2 oz I&O: 03/26/18 03/27/18 03/28/18 06:59 06:59 06:59 Intake Total 1520 840 Output Total 875 225 Balance 645 615 Result Diagrams: 03/27/18 04:22 03/27/18 04:22 Additional Labs: Microbiology 03/21/18 13:58 Venous blood - Right Hand Blood Culture - Final NO GROWTH IN 5 DAYS 03/21/18 13:48 Urine jenkins catheter Urine Culture - Final NO GROWTH AT 48 HOURS 03/21/18 13:44 Venous blood - Left Hand Blood Culture - Final NO GROWTH IN 5 DAYS Laboratory Tests 03/25/18 03/26/18 03/26/18 04:15 03:54 10:32 Hgb 12.7 11.4 L 11.2 L 03/26/18 03/27/18 14:21 04:22 Hgb 11.2 L 10.0 L labs reviewed Phys Exam - Physical Examination Constitutional: NAD HEENT: PERRLA, moist MMs, sclera anicteric, oral pharynx no lesions Neck: no nodes, no JVD, supple, full ROM Respiratory: no wheezing, no rales, no rhonchi, clear to auscultation bilateral Cardiovascular: RRR, no significant murmur Gastrointestinal: soft, non-tender, no distention, positive bowel sounds Musculoskeletal: pulses present, edema present Neurological: non-focal, normal sensation, moves all 4 limbs Psychiatric: normal affect, A&O x 3 Skin: no rash Dx/Plan (1) Bilateral pulmonary embolism Code(s): I26.99 - OTHER PULMONARY EMBOLISM WITHOUT ACUTE COR PULMONALE Status : Acute Comment: Anticoagulation restarted 02/24/18 (2) Left leg DVT Code(s): I82.402 - ACUTE EMBOLISM AND THOMBOS UNSP DEEP VEINS OF L LOW EXTREM Status: Acute Qualifiers: Chronicity: acute (3) Atrial fibrillation with RVR Code(s): I48.91 - UNSPECIFIED ATRIAL FIBRILLATION Status: Acute Comment: rate controlled on Amiodarone.NSR now (4) Troponin level elevated Code(s): R74.8 - ABNORMAL LEVELS OF OTHER SERUM ENZYMES Status: Acute Comment: Likley demand ischemia from PE and a-fib w RVR. troponin trending down (5) Acute diastolic CHF (congestive heart failure) Code(s): I50.31 - ACUTE DIASTOLIC (CONGESTIVE) HEART FAILURE Status: Resolved Comment: BNP>1000 (6) Ulcerative colitis, acute Code(s): K51.90 - ULCERATIVE COLITIS, UNSPECIFIED, WITHOUT COMPLICATIONS Status: Acute Comment: On Pentasa. Steroids stopped due to question of infection,now restarted as infection is ruled out. (7) HLD (hyperlipidemia) Code(s): E78.5 - HYPERLIPIDEMIA, UNSPECIFIED Status: Chronic (8) Physical deconditioning Code(s): R53.81 - OTHER MALAISE Status: Chronic (9) GI bleed Code(s): K92.2 - GASTROINTESTINAL HEMORRHAGE, UNSPECIFIED Status: Resolved Comment: secondary to #1, recheck H/H to make sure blood counts remaining stable - Plan plan discussed w/ family, continue antibiotics, respiratory therapy, incentive spirometry, out of bed/ambulate, DVT proph w/SCDs no GIB on Lovenox.cont.PO from tomorrow.monitor H/H -: monitor Urine output.low this morning.encouraged to drink more -: Cont high dose IV steroids for colonic imfalmmation.Appreciate GI input -: encourage ambulation.Pt with minimal effort.SNU on DC -: Empiric ABx. all Cx negative. will stop omnicef.stool studies pending. * . Review of Systems - Review of Systems Constitutional: weakness, malaise. negative: fever, chills, sweats, other Respiratory: negative: Cough, Dry, Shortness of Breath, Hemoptysis, SOB with Excertion, Pleuritic Pain, Sputum, Wheezing Cardiovascular: negative: chest pain, palpitations, orthopnea, paroxysmal nocturnal dyspnea, edema, light headedness, other Gastrointestinal: Abdominal Pain. negative: Nausea, Vomiting, Diarrhea, Constipation, Melena, Hematochezia, Other Genitourinary: negative: Dysuria, Frequency, Incontinence, Hematuria, Retention , Other Musculoskeletal: negative: Neck Pain, Shoulder Pain, Arm Pain, Back Pain, Hand Pain, Leg Pain, Foot Pain, Other Skin: negative: Rash, Lesions, Lex, Bruising, Other Neurological: negative: Weakness, Numbness, Incoordination, Change in Speech, Confusion, Seizures, Other - Medications/Allergies Allergies/Adverse Reactions: Allergies Allergy/AdvReac Type Severity Reaction Status Date / Time clindamycin [From Cleocin] Allergy Verified 03/10/18 13:44 levofloxacin Allergy Verified 03/10/18 13:44 Penicillins Allergy Verified 03/10/18 13:44 polyethylene glycol Allergy Verified 03/10/18 13:44 [From Colyte] polyethylene glycol 3350 Allergy Verified 03/10/18 13:44 [From Colyte] potassium chloride Allergy Verified 03/10/18 13:44 [From Colyte] sodium [From Colyte] Allergy Verified 03/10/18 13:44 sodium bicarbonate Allergy Verified 03/10/18 13:44 [From Colyte] sodium chloride [From Colyte] Allergy Verified 03/10/18 13:44 sodium sulfate [From Colyte] Allergy Verified 03/10/18 13:44 Sulfa (Sulfonamide Allergy Verified 03/10/18 13:44 Antibiotics) Medications: Current Medications Acetaminophen (Tylenol) 650 mg PO Q4H PRN PRN Reason: Headache/Fever or Pain Last Admin: 03/27/18 09:57 Dose: 650 mg Hydrocodone Bitart/Acetaminophen ([place] 5/325) 1 tab PO Q4H PRN PRN Reason: Moderate Pain (4-6) Last Admin: 03/27/18 15:56 Dose: 1 tab Al Hydroxide/Mg Hydroxide (Maalox) 30 ml PO Q6H PRN PRN Reason: Heartburn or Indigestion Apixaban (Eliquis) 5 mg PO BID [facility] Artificial Tears (Tears Naturale) 0 drop EA EYE PRN PRN PRN Reason: Dry Eyes Atorvastatin Calcium (Lipitor) 40 mg PO HS [facility] Last Admin: 03/26/18 21:02 Dose: 40 mg Cefdinir (Omnicef) 300 mg PO BID [facility] Stop: 03/29/18 09:01 Last Admin: 03/27/18 09:53 Dose: Not Given Cyanocobalamin (Vitamin B-12) 1,000 mcg PO DAILY [facility] Last Admin: 03/27/18 09:58 Dose: 1,000 mcg Digoxin (Lanoxin) 0.125 mg PO DAILY [facility] Last Admin: 03/27/18 09:58 Dose: 0.125 mg [facility] Last Admin: 03/27/18 15:48 Dose: 400 mg Folic Acid (Folvite) 1 mg PO DAILY [facility] Last Admin: 03/27/18 09:58 Dose: 1 mg Guaifenesin (Robitussin Sf) 200 mg PO Q4H PRN PRN Reason: Cough Loperamide HCl (Imodium) 2 mg PO PRN PRN PRN Reason: Diarrhea/Loose Stools Loratadine (Claritin) 10 mg PO DAILYPRN PRN PRN Reason: Sinus Symptoms Magnesium Hydroxide (Milk Of Magnesium) 30 ml PO DAILYPRN PRN PRN Reason: Constipation Melatonin (Melatonin) 9 mg PO [facility] Last Admin: 03/26/18 21:03 Dose: 9 mg Mesalamine (Pentasa) 2,000 mg PO BID [facility] Last Admin: 03/27/18 09:59 Dose: 2,000 mg Methylprednisolone Sodium Succinate (Solu-Medrol) 20 mg IVP Q8HR [facility] Last Admin: 03/27/18 15:48 Dose: 20 mg Metronidazole (Flagyl) 500 mg PO TID [facility] Last Admin: 03/27/18 15:48 Dose: 500 mg Mineral Oil/White Petrolatum (Eucerin Cream) 0 gm TOP BIDPRN PRN PRN Reason: Dry Skin Ondansetron HCl (Zofran Odt) 4 mg PO Q6H PRN PRN Reason: Nausea/Vomiting Ondansetron HCl (Zofran) 4 mg IVP Q6H PRN PRN Reason: Nausea/Vomiting Last Admin: 03/26/18 11:32 Dose: 4 mg Pantoprazole Sodium (Protonix) 40 mg IVP Q12HR [facility] Last Admin: 03/27/18 09:58 Dose: 40 mg Phenol (Chloraseptic [place] 180 Ml Bot) 0 ml PO PRN PRN PRN Reason: Sore Throat Senna (Senokot) 2 tab PO HSPRN PRN PRN Reason: Constipation Sodium Chloride ([place] Nasal [place] 0.65%) 0 ml EA NARE QIDPRN PRN PRN Reason: Nasal Congestion Sodium Chloride (Flush - Normal Saline) 10 ml IVF Q12HR [facility] Last Admin: 03/27/18 09:58 Dose: 10 ml Sodium Chloride (Flush - Normal Saline) 10 ml IVF PRN PRN PRN Reason: Saline Flush Zolpidem Tartrate (Ambien) 5 mg PO HSPRN PRN PRN Reason: Insomnia
[2018-03-27] MEDS: Atorvastatin Calcium 40 MG TAB PO SCH (20:31)
[2018-03-27] MEDS ORDERED: Apixaban 5 MG TAB PO SCH (21:00)
[2018-03-27] MEDS: Melatonin 3 MG TAB PO SCH (21:59)
[2018-03-28] MEDS: HYDROcodone/Acetaminophen 5/325 mg Tablet PO PRN ×3 (03:13→14:22)
[2018-03-28 05:54] LABS: Band 6 % (5-11); Hemoglobin 8.8 g/dL (12.0-16.0); Lymphocytes 1 % (21-51); MDiff Complete? YES; Mean Corpuscular HGB CONC 33.1 g/dL (32.0-36.0); Mean Corpuscular Hemoglobin 34.1 pg (27.0-31.0); Mean Platelet Volume 6.6 fL (7.4-10.4); Monocytes 2 % (0-10); Neutrophil 91 % (42-75); Platelet Count 211 thou/uL (130-400); RBC Distribution Width 13.5 % (11.5-14.5); Red Blood Cell (RBC) Count 2.57 mill/uL (4.20-5.40); White Blood Cell (WBC) Count 28.4 thou/uL (4.8-10.8)
[2018-03-28 06:04] LABS: Calcium 7.6 mg/dL (7.8-10.44); Chloride 106 mmol/L (98-107); Sodium 135 mmol/L (136-145)
[2018-03-28 06:05] LABS: Glucose 130 mg/dL (83-110)
[2018-03-28 06:06] LABS: Anion Gap 9 mmol/L (10-20); Carbon Dioxide 24 mmol/L (23-31)
[2018-03-28 06:08] LABS: Calc. Creatinine Clearance 101 mL/min (70-130); Estimated GFR-MDRD Greater than 90
[2018-03-28 06:09] LABS: BUN (Urea Nitrogen) 20 mg/dL (9.8-20.1)
[2018-03-28] MEDS: metroNIDAZOLE 500 MG TAB PO SCH ×2 (09:24→14:22)
[2018-03-28] MEDS: Cyanocobalamin (Vitamin B-12) 1,000 MCG TAB PO SCH (09:24)
[2018-03-28] MEDS: Dronedarone HCl 400 MG TAB PO SCH ×2 (09:24→17:36)
[2018-03-28] MEDS: Digoxin 0.125 MG TAB PO SCH (09:24)
[2018-03-28] MEDS: Folic Acid 1 MG TAB PO SCH (09:25)
[2018-03-28] MEDS: Pantoprazole 40 MG VIAL IVP SCH (09:26)
--- NOTE | 2018-03-28 11:28 | PRG ---
DATE OF SERVICE: 03/28/2018 SUBJECTIVE: Ms. Chandra had a bad night last night with multiple bloody stools throughout the [facility] t. OBJECTIVE: VITAL SIGNS: Temperature 98.0, pulse 96, blood pressure 144/78. GENERAL: She is in no acute distress. She is awake and alert. LUNGS: Clear to auscultation bilaterally. HEART: Regular rate and rhythm. ABDOMEN: Soft, mild tenderness in the lower abdomen without guarding. Bowel sounds are present. EXTREMITIES: 1+ pitting lower extremity edema. She also has some puffiness in her hands today. LABORATORY DATA: White blood cell count 28.4, hemoglobin 8.8 down from 10.0 yesterday, platelets 211 and creatinine 0.56. IMPRESSION: 1. Ulcerative colitis of the transverse and left colon. She had symptomatically improved with IV st eroids; however, had another episode of rectal bleeding and diarrhea last night. 2. Anemia of acute blood loss. Hemoglobin did decrease to 8.8 today. I would recheck hemoglobin th is afternoon if it is stable, then she should be able to continue with anticoagulation, may be switch ed back to Lovenox at this point. We will continue to follow the hemoglobin. RECOMMENDATIONS: 1. Send stool for C. diff. 2. As long as C. diff is negative, then it is okay to use Imodium as needed. 3. Continue IV steroids. 4. We will check hemoglobin now. If this is stable, then she can likely restart full anticoagulatio n with Lovenox and continue to follow the blood count. 5. Elevated white blood cell count is most likely secondary to the steroids. Antibiotics are being tapered. She is on metronidazole and cephalosporin has been discontinued.
--- NOTE | 2018-03-28 11:32 | PRG ---
DATE OF SERVICE: 03/28/2018 SUBJECTIVE: Ms. Chandra had a rough night, profuse, multiple bowel movements 20, they are maroon c olor. OBJECTIVE: VITAL SIGNS: Sats are 98%, respirations 16, temperature 98, blood pressure 140/78. EXTREMITIES: She has got generalized edema in hands and lower extremity. CHEST: Chest reveals decreased breath sounds, no wheezing. CARDIAC: Normal S1, S2. No gallops. ABDOMEN: Soft, no masses. LABORATORY DATA: Electrolytes are normal. White count 28,000, H&H is 8 and 26, platelet count 211. IMPRESSION: 1. Colitis, profuse diarrhea, lower gastrointestinal bleed. 2. Pulmonary embolism status post filter. PLAN: Discontinue Eliquis. Lomotil for profuse diarrhea. Multaq and digoxin for cardiac arrhythmia s. Continue supportive care. Prognosis guarded. We will follow.
[2018-03-28 12:00] LABS: Hemoglobin 8.2 g/dL (12.0-16.0)
--- NOTE | 2018-03-28 15:08 | PDOC.PN ---
- Subjective Encounter Start Date: 03/28/18 Encounter Start Time: 15:05 Subjective: had multiple bloody looking BM last night -: c/o swelling in hands and legs.c/o lower abd pain - Objective Resuscitation Status: Resuscitation Status FULL:Full Resuscitation MAR Reviewed: Yes Vital Signs & Weight: Vital Signs (12 hours) Temp Pulse Resp BP Pulse Ox 03/28/18 11:21 99.0 F 104 H 17 122/79 96 03/28/18 10:15 95 03/28/18 09:41 95 03/28/18 09:24 96 03/28/18 08:00 98.0 F 96 16 03/28/18 07:25 96 16 144/78 H 95 03/28/18 04:00 98.3 F 93 18 154/74 H 96 Weight Weight 186 lb 2 oz I&O: 03/27/18 03/28/18 03/29/18 06:59 06:59 06:59 Intake Total 840 840 Output Total 225 450 Balance 615 390 Result Diagrams: 03/28/18 11:50 03/28/18 05:45 Additional Labs: Microbiology 03/21/18 13:58 Venous blood - Right Hand Blood Culture - Final NO GROWTH IN 5 DAYS 03/21/18 13:48 Urine jenkins catheter Urine Culture - Final NO GROWTH AT 48 HOURS 03/21/18 13:44 Venous blood - Left Hand Blood Culture - Final NO GROWTH IN 5 DAYS labs reviewed Phys Exam - Physical Examination Constitutional: NAD HEENT: PERRLA, moist MMs, sclera anicteric, oral pharynx no lesions Neck: no nodes, no JVD, supple, full ROM Respiratory: no wheezing, no rales, no rhonchi, clear to auscultation bilateral Cardiovascular: RRR, no significant murmur Gastrointestinal: soft, no distention, positive bowel sounds TTP lower left abdomen Musculoskeletal: pulses present, edema present Neurological: non-focal, normal sensation, moves all 4 limbs Psychiatric: normal affect, A&O x 3 Skin: no rash Dx/Plan (1) GI bleed Code(s): K92.2 - GASTROINTESTINAL HEMORRHAGE, UNSPECIFIED Status: Acute Comment: secondary to #1, recheck H/H to make sure blood counts remaining stable (2) Bilateral pulmonary embolism Code(s): I26.99 - OTHER PULMONARY EMBOLISM WITHOUT ACUTE COR PULMONALE Status : Acute Comment: Anticoagulation restarted 02/24/18.Now w increased hematochezia and drop in Hb. Eliquis stopped (3) Left leg DVT Code(s): I82.402 - ACUTE EMBOLISM AND THOMBOS UNSP DEEP VEINS OF L LOW EXTREM Status: Acute Qualifiers: Chronicity: acute (4) Atrial fibrillation with RVR Code(s): I48.91 - UNSPECIFIED ATRIAL FIBRILLATION Status: Acute Comment: rate controlled on Amiodarone an ddigoxin.NSR now (5) Troponin level elevated Code(s): R74.8 - ABNORMAL LEVELS OF OTHER SERUM ENZYMES Status: Acute Comment: Likley demand ischemia from PE and a-fib w RVR. troponin trending down (6) Acute diastolic CHF (congestive heart failure) Code(s): I50.31 - ACUTE DIASTOLIC (CONGESTIVE) HEART FAILURE Status: Resolved Comment: BNP>1000 (7) Ulcerative colitis, acute Code(s): K51.90 - ULCERATIVE COLITIS, UNSPECIFIED, WITHOUT COMPLICATIONS Status: Acute Comment: On Pentasa. Steroids stopped due to question of infection,now restarted as infection is ruled out. (8) HLD (hyperlipidemia) Code(s): E78.5 - HYPERLIPIDEMIA, UNSPECIFIED Status: Chronic (9) Physical deconditioning Code(s): R53.81 - OTHER MALAISE Status: Chronic - Plan continue antibiotics, PT/OT, out of bed/ambulate, DVT proph w/SCDs H/h lower.cont to hold eliquis. -: stool for Cdiff. on Flagyl. -: cont digoxin and Amiodarone -: high dose steroids. -: discussed w GI.am labs.stable for now * . Review of Systems - Review of Systems Constitutional: weakness, malaise. negative: fever, chills, sweats, other Respiratory: negative: Cough, Dry, Shortness of Breath, Hemoptysis, SOB with Excertion, Pleuritic Pain, Sputum, Wheezing Cardiovascular: edema. negative: chest pain, palpitations, orthopnea, paroxysmal nocturnal dyspnea, light headedness, other Gastrointestinal: Nausea, Abdominal Pain, Diarrhea, Hematochezia Genitourinary: negative: Dysuria, Frequency, Incontinence, Hematuria, Retention , Other Musculoskeletal: negative: Neck Pain, Shoulder Pain, Arm Pain, Back Pain, Hand Pain, Leg Pain, Foot Pain, Other Skin: negative: Rash, Lesions, Lex, Bruising, Other Neurological: negative: Weakness, Numbness, Incoordination, Change in Speech, Confusion, Seizures, Other - Medications/Allergies Allergies/Adverse Reactions: Allergies Allergy/AdvReac Type Severity Reaction Status Date / Time clindamycin [From Cleocin] Allergy Verified 03/10/18 13:44 levofloxacin Allergy Verified 03/10/18 13:44 Penicillins Allergy Verified 03/10/18 13:44 polyethylene glycol Allergy Verified 03/10/18 13:44 [From Colyte] polyethylene glycol 3350 Allergy Verified 03/10/18 13:44 [From Colyte] potassium chloride Allergy Verified 03/10/18 13:44 [From Colyte] sodium [From Colyte] Allergy Verified 03/10/18 13:44 sodium bicarbonate Allergy Verified 03/10/18 13:44 [From Colyte] sodium chloride [From Colyte] Allergy Verified 03/10/18 13:44 sodium sulfate [From Colyte] Allergy Verified 03/10/18 13:44 Sulfa (Sulfonamide Allergy Verified 03/10/18 13:44 Antibiotics) Medications: Current Medications Acetaminophen (Tylenol) 650 mg PO Q4H PRN PRN Reason: Headache/Fever or Pain Last Admin: 03/27/18 09:57 Dose: 650 mg Hydrocodone Bitart/Acetaminophen ([place] 5/325) 1 tab PO Q4H PRN PRN Reason: Moderate Pain (4-6) Last Admin: 03/28/18 14:22 Dose: 1 tab Al Hydroxide/Mg Hydroxide (Maalox) 30 ml PO Q6H PRN PRN Reason: Heartburn or Indigestion Artificial Tears (Tears Naturale) 0 drop EA EYE PRN PRN PRN Reason: Dry Eyes Atorvastatin Calcium (Lipitor) 40 mg PO [facility] Last Admin: 03/27/18 20:31 Dose: 40 mg Cyanocobalamin (Vitamin B-12) 1,000 mcg PO DAILY [facility] Last Admin: 03/28/18 09:24 Dose: 1,000 mcg Digoxin (Lanoxin) 0.125 mg PO DAILY [facility] Last Admin: 03/28/18 09:24 Dose: 0.125 mg Dronedarone (Multaq) 400 mg PO BID[facility] Last Admin: 03/28/18 09:24 Dose: 400 mg Folic Acid (Folvite) 1 mg PO DAILY [facility] Last Admin: 03/28/18 09:25 Dose: 1 mg Guaifenesin (Robitussin Sf) 200 mg PO Q4H PRN PRN Reason: Cough Loperamide HCl (Imodium) 2 mg PO PRN PRN PRN Reason: Diarrhea/Loose Stools Last Admin: 03/28/18 09:24 Dose: 2 mg Loratadine (Claritin) 10 mg PO DAILYPRN PRN PRN Reason: Sinus Symptoms Magnesium Hydroxide (Milk Of Magnesium) 30 ml PO DAILYPRN PRN PRN Reason: Constipation Melatonin (Melatonin) 9 mg PO HS [facility] Last Admin: 03/27/18 21:59 Dose: 9 mg Mesalamine (Pentasa) 2,000 mg PO BID [facility] Last Admin: 03/28/18 09:25 Dose: 2,000 mg Methylprednisolone Sodium Succinate (Solu-Medrol) 20 mg IVP Q8HR [facility] Last Admin: 03/28/18 14:23 Dose: 20 mg Metronidazole (Flagyl) 500 mg PO TID [facility] Last Admin: 03/28/18 14:22 Dose: 500 mg Mineral Oil/White Petrolatum (Eucerin Cream) 0 gm TOP BIDPRN PRN PRN Reason: Dry Skin Ondansetron HCl (Zofran Odt) 4 mg PO Q6H PRN PRN Reason: Nausea/Vomiting Ondansetron HCl (Zofran) 4 mg IVP Q6H PRN PRN Reason: Nausea/Vomiting Last Admin: 03/26/18 11:32 Dose: 4 mg Pantoprazole Sodium (Protonix) 40 mg IVP Q12HR [facility] Last Admin: 03/28/18 09:26 Dose: 40 mg Phenol (Chloraseptic [place] 180 Ml Bot) 0 ml PO PRN PRN PRN Reason: Sore Throat Senna (Senokot) 2 tab PO HSPRN PRN PRN Reason: Constipation Sodium Chloride ([place] Nasal [place] 0.65%) 0 ml EA NARE QIDPRN PRN PRN Reason: Nasal Congestion Sodium Chloride (Flush - Normal Saline) 10 ml IVF Q12HR [facility] Last Admin: 03/28/18 09:27 Dose: 10 ml Sodium Chloride (Flush - Normal Saline) 10 ml IVF PRN PRN PRN Reason: Saline Flush Zolpidem Tartrate (Ambien) 5 mg PO HSPRN PRN PRN Reason: Insomnia
--- NOTE | 2018-03-28 19:06 | RAD ---
KUB: 03/28/18 COMPARISON: 03/24/18 HISTORY: Abdominal pain and history of small bowel ileus. FINDINGS: Anterior views of the abdomen shows a nonspecific, nonobstructive bowel gas pattern. Air is seen thro ughout the colon to the level of the rectum. Cholecystectomy clips are seen. An inferior vena cava fi lter is seen. IMPRESSION: Nonobstructive bowel gas pattern. POS: [facility]
--- NOTE | 2018-03-28 21:56 | PDOC.EVN ---
Event Note - Event Note Event Note: I have had meeting with pt's , and 2 daughters, they have stated that the pt is willing to be DNR/DNI and comfort care at this point with no aggressive treatment to sustain her life, they have stated pt has stated ad they are in agreement to change our management to comfort care an to improve pain medications therapy that as of now is not totally controlling pain. we will follow expressed pt's wishes.
[2018-03-29] MEDS: Melatonin 3 MG TAB PO SCH ×2 (00:09→21:22)
[2018-03-29] MEDS: Pantoprazole 40 MG VIAL IVP SCH ×3 (00:10→20:02)
[2018-03-29] MEDS: metroNIDAZOLE 500 MG TAB PO SCH ×4 (00:10→21:23)
[2018-03-29] MEDS: Atorvastatin Calcium 40 MG TAB PO SCH (01:30)
[2018-03-29] MEDS: Dronedarone HCl 400 MG TAB PO SCH ×2 (09:47→21:22)
[2018-03-29] MEDS: Digoxin 0.125 MG TAB PO SCH (09:48)
[2018-03-29] MEDS: Cyanocobalamin (Vitamin B-12) 1,000 MCG TAB PO SCH (09:48)
[2018-03-29] MEDS: Folic Acid 1 MG TAB PO SCH (09:48)
--- NOTE | 2018-03-29 12:24 | EKG ---
Test Reason : Blood Pressure : / mmHG Vent. Rate : 134 BPM Atrial Rate : 134 BPM P-R Int : 000 ms QRS Dur : 080 ms QT Int : 372 ms P-R-T Axes : 000 006 080 degrees QTc Int : 555 ms Atrial fibrillation with rapid ventricular response Septal infarct , age undetermined Abnormal ECG Confirmed by VERITO PICHARDO MD ([id number]), editor dictionary BETH ROJAS ([id number]) on 03/29/2018 12:24:24 PM Referred By: Confirmed By:VERITO PICHARDO MD
--- NOTE | 2018-03-29 12:25 | EKG ---
Test Reason : Blood Pressure : / mmHG Vent. Rate : 199 BPM Atrial Rate : 147 BPM P-R Int : 000 ms QRS Dur : 076 ms QT Int : 236 ms P-R-T Axes : 000 010 159 degrees QTc Int : 429 ms Supraventricular tachycardia Nonspecific T wave abnormality Abnormal ECG Confirmed by VERITO PICHARDO MD ([id number]), editor farm journal BETH ROJAS ([id number]) on 03/29/2018 12:24:58 PM Referred By: Confirmed By:VERITO PICHARDO MD
--- NOTE | 2018-03-29 14:09 | PRG ---
DATE OF SERVICE: 03/29/2018 SUBJECTIVE: Ms. Chandra has no pain currently. She had a hard time with pain last night and was s tarted on morphine, and her pain is now better controlled. Her family has decided to make her comfor t care status and has requested that all medications be held including steroids and anticoagulation. OBJECTIVE: VITAL SIGNS: Temperature 97.9, pulse 115, blood pressure 170/88. GENERAL: She is in no acute distress. She is oriented to her name and place and initially stated th at the year was 1918. LUNGS: She appears to be breathing comfortably. Her lungs are clear to auscultation bilaterally. HEART: Tachycardic, S1 and S2. ABDOMEN: Tender diffusely without guarding. Bowel sounds are present. She is a little more bloated or distended in her abdomen today. EXTREMITIES: No lower extremity edema. IMPRESSION: 1. New onset ulcerative colitis. She did have initial significant improvement with IV steroids. Ho wever, she has had increased abdominal pain over the last few days. She did have increase in rectal bleeding while on anticoagulation, the night before last. However, her anticoagulation was held yest erday and she has had no further bleeding through the night. Recommendation is to continue IV steroi ds and ideally would transition to Entyvio. It turns out that the transfer to nursing home would be a problem with the Entyvio due to the cost of Entyvio. Alternatively, we could start azathioprine instead. However, this may be of slower onset and require a longer period of prednisone. 2. Anemia of acute blood loss. She and her family declined blood work today. She is not having fur ther bleeding now that the anticoagulation is held. She really did not have significant diarrhea las t night. 3. Pulmonary embolism. She has had a filter placed. I would still think that anticoagulation could be retried with a shorter-acting agent with Lovenox with close monitoring of her hemoglobin. She is expected to have some oozing from the diffuse colitis, but as the colitis is treated with steroid, t hen the bleeding should improve. 4. The family has decided to make her comfort care and has declined all treatment including anticoag ulation and steroids. I did express that I did not believe her current condition is terminal and roberta t this is a treatable condition. The family is discussing what they wish to do for treatment from this point. Right now, they just wa nt scheduled morphine. RECOMMENDATIONS: My recommendation at this point would be to restart the steroids and potentially gi ve another trial with the anticoagulation today or tomorrow. We could try oral steroids and oral aza thioprine. She also can be continued ideally on the mesalamine. We will await further decision from the family on treatment plan. They are also considering discussion with palliative care at this poi nt.
--- NOTE | 2018-03-29 14:21 | PDOC.PN ---
- Subjective Encounter Start Date: 03/29/18 Encounter Start Time: 14:19 Subjective: no Bm since last night.had increased LLQ mariangel last night needing morphine -: no pain this am. family reports poor PO intake - Objective Resuscitation Status: Resuscitation Status DNR:Do Not Resuscitate MAR Reviewed: Yes Vital Signs & Weight: Vital Signs (12 hours) Temp Pulse Resp 03/29/18 09:48 115 H 03/29/18 08:00 97.9 F 115 H 18 Weight Weight 186 lb 2 oz I&O: 03/28/18 03/29/18 03/30/18 06:59 06:59 06:59 Intake Total 840 240 Output Total 450 250 Balance 390 -10 Result Diagrams: 03/28/18 11:50 03/28/18 05:45 Additional Labs: Microbiology 03/27/18 22:10 Stool C. difficile GDH Antigen & Toxins - Final 03/21/18 13:58 Venous blood - Right Hand Blood Culture - Final NO GROWTH IN 5 DAYS 03/21/18 13:48 Urine jenkins catheter Urine Culture - Final NO GROWTH AT 48 HOURS 03/21/18 13:44 Venous blood - Left Hand Blood Culture - Final NO GROWTH IN 5 DAYS labs reviewed Phys Exam - Physical Examination Constitutional: NAD HEENT: PERRLA, moist MMs, sclera anicteric, oral pharynx no lesions Neck: no nodes, no JVD, supple, full ROM Respiratory: no wheezing, no rales, no rhonchi, clear to auscultation bilateral Cardiovascular: RRR, no significant murmur Gastrointestinal: soft, non-tender, positive bowel sounds mildly distened Musculoskeletal: pulses present, edema present Neurological: non-focal, normal sensation, moves all 4 limbs Psychiatric: normal affect, A&O x 3 Skin: no rash Dx/Plan (1) GI bleed Code(s): K92.2 - GASTROINTESTINAL HEMORRHAGE, UNSPECIFIED Status: Acute (2) Bilateral pulmonary embolism Code(s): I26.99 - OTHER PULMONARY EMBOLISM WITHOUT ACUTE COR PULMONALE Status : Acute Comment: Anticoagulation restarted 02/24/18.Now w increased hematochezia and drop in Hb. Eliquis stopped (3) Left leg DVT Code(s): I82.402 - ACUTE EMBOLISM AND THOMBOS UNSP DEEP VEINS OF L LOW EXTREM Status: Acute Qualifiers: Chronicity: acute (4) Atrial fibrillation with RVR Code(s): I48.91 - UNSPECIFIED ATRIAL FIBRILLATION Status: Acute Comment: rate controlled on Amiodarone an ddigoxin.NSR now (5) Troponin level elevated Code(s): R74.8 - ABNORMAL LEVELS OF OTHER SERUM ENZYMES Status: Acute Comment: Likley demand ischemia from PE and a-fib w RVR. troponin trending down (6) Acute diastolic CHF (congestive heart failure) Code(s): I50.31 - ACUTE DIASTOLIC (CONGESTIVE) HEART FAILURE Status: Resolved Comment: BNP>1000 (7) Ulcerative colitis, acute Code(s): K51.90 - ULCERATIVE COLITIS, UNSPECIFIED, WITHOUT COMPLICATIONS Status: Acute Comment: On Pentasa. Steroids stopped due to question of infection,now restarted as infection is ruled out. (8) HLD (hyperlipidemia) Code(s): E78.5 - HYPERLIPIDEMIA, UNSPECIFIED Status: Chronic (9) Physical deconditioning Code(s): R53.81 - OTHER MALAISE Status: Chronic - Plan continue antibiotics, PT/OT, respiratory therapy, incentive spirometry, out of bed/ambulate, DVT proph w/SCDs Pt encouraged to ambulate and increase PO intake -: discussed with Dr. samano. would re start Anticoagulation -: cont IV sterods -: H/h monitoring.rehab eval * . Review of Systems - Review of Systems Constitutional: weakness, malaise. negative: fever, chills, sweats, other ENT: negative: Ear Pain, Ear Discharge, Nose Pain, Nose Discharge, Nose Congestion, Mouth Pain, Mouth Swelling, Throat Pain, Throat Swelling, Other Respiratory: negative: Cough, Dry, Shortness of Breath, Hemoptysis, SOB with Excertion, Pleuritic Pain, Sputum, Wheezing Cardiovascular: negative: chest pain, palpitations, orthopnea, paroxysmal nocturnal dyspnea, edema, light headedness, other Gastrointestinal: negative: Nausea, Vomiting, Abdominal Pain, Diarrhea, Constipation, Melena, Hematochezia, Other Genitourinary: negative: Dysuria, Frequency, Incontinence, Hematuria, Retention , Other Musculoskeletal: negative: Neck Pain, Shoulder Pain, Arm Pain, Back Pain, Hand Pain, Leg Pain, Foot Pain, Other Neurological: negative: Weakness, Numbness, Incoordination, Change in Speech, Confusion, Seizures, Other - Medications/Allergies Allergies/Adverse Reactions: Allergies Allergy/AdvReac Type Severity Reaction Status Date / Time clindamycin [From Cleocin] Allergy Verified 03/10/18 13:44 levofloxacin Allergy Verified 03/10/18 13:44 Penicillins Allergy Verified 03/10/18 13:44 polyethylene glycol Allergy Verified 03/10/18 13:44 [From Colyte] polyethylene glycol 3350 Allergy Verified 03/10/18 13:44 [From Colyte] potassium chloride Allergy Verified 03/10/18 13:44 [From Colyte] sodium [From Colyte] Allergy Verified 03/10/18 13:44 sodium bicarbonate Allergy Verified 03/10/18 13:44 [From Colyte] sodium chloride [From Colyte] Allergy Verified 03/10/18 13:44 sodium sulfate [From Colyte] Allergy Verified 03/10/18 13:44 Sulfa (Sulfonamide Allergy Verified 03/10/18 13:44 Antibiotics) Medications: Current Medications Acetaminophen (Tylenol) 650 mg PO Q4H PRN PRN Reason: Headache/Fever or Pain Last Admin: 03/27/18 09:57 Dose: 650 mg Hydrocodone Bitart/Acetaminophen ([place] 5/325) 1 tab PO Q4H PRN PRN Reason: Moderate Pain (4-6) Last Admin: 03/28/18 14:22 Dose: 1 tab Al Hydroxide/Mg Hydroxide (Maalox) 30 ml PO Q6H PRN PRN Reason: Heartburn or Indigestion Artificial Tears (Tears Naturale) 0 drop EA EYE PRN PRN PRN Reason: Dry Eyes Cyanocobalamin (Vitamin B-12) 1,000 mcg PO DAILY [facility] Last Admin: 03/29/18 09:48 Dose: Not Given Digoxin (Lanoxin) 0.125 mg PO DAILY [facility] Last Admin: 03/29/18 09:48 Dose: Not Given Dronedarone (Multaq) 400 mg PO BID-[facility] Last Admin: 03/29/18 09:47 Dose: Not Given Folic Acid (Folvite) 1 mg PO DAILY [facility] Last Admin: 03/29/18 09:48 Dose: Not Given Guaifenesin (Robitussin Sf) 200 mg PO Q4H PRN PRN Reason: Cough Loperamide HCl (Imodium) 2 mg PO PRN PRN PRN Reason: Diarrhea/Loose Stools Last Admin: 03/28/18 09:24 Dose: 2 mg Loratadine (Claritin) 10 mg PO DAILYPRN PRN PRN Reason: Sinus Symptoms Magnesium Hydroxide (Milk Of Magnesium) 30 ml PO DAILYPRN PRN PRN Reason: Constipation Melatonin (Melatonin) 9 mg PO HS [facility] Last Admin: 03/29/18 00:09 Dose: Not Given Mesalamine (Pentasa) 2,000 mg PO BID [facility] Last Admin: 03/29/18 09:48 Dose: Not Given Methylprednisolone Sodium Succinate (Solu-Medrol) 20 mg IVP Q8HR [facility] Last Admin: 03/29/18 09:47 Dose: Not Given Metronidazole (Flagyl) 500 mg PO TID [facility] Last Admin: 03/29/18 09:48 Dose: Not Given Mineral Oil/White Petrolatum (Eucerin Cream) 0 gm TOP BIDPRN PRN PRN Reason: Dry Skin Morphine Sulfate (Morphine) 2 mg SLOW IVP Q2H PRN PRN Reason: Severe Pain (7-10) Last Admin: 03/29/18 08:40 Dose: 2 mg Ondansetron HCl (Zofran Odt) 4 mg PO Q6H PRN PRN Reason: Nausea/Vomiting Ondansetron HCl (Zofran) 4 mg IVP Q6H PRN PRN Reason: Nausea/Vomiting Last Admin: 03/26/18 11:32 Dose: 4 mg Pantoprazole Sodium (Protonix) 40 mg IVP Q12HR [facility] Last Admin: 03/29/18 09:49 Dose: Not Given Phenol (Chloraseptic [place] 180 Ml Bot) 0 ml PO PRN PRN PRN Reason: Sore Throat Senna (Senokot) 2 tab PO HSPRN PRN PRN Reason: Constipation Sodium Chloride ([place] Nasal [place] 0.65%) 0 ml EA NARE QIDPRN PRN PRN Reason: Nasal Congestion Sodium Chloride (Flush - Normal Saline) 10 ml IVF Q12HR [facility] Last Admin: 03/29/18 09:49 Dose: Not Given Sodium Chloride (Flush - Normal Saline) 10 ml IVF PRN PRN PRN Reason: Saline Flush Zolpidem Tartrate (Ambien) 5 mg PO HSPRN PRN PRN Reason: Insomnia
[2018-03-29] MEDS: Ondansetron HCl/PF 4 MG/2 ML Vial IVP PRN ×2 (15:27→20:02)
--- NOTE | 2018-03-29 18:32 | PDOC.EVN ---
Event Note - Event Note Event Note: I was amde aware that family has decided to make pt DNR/DNI and comfort care last night around 2.30 am after talking to container washer MD Talked to first in waiting room who updated me that this was a family decision and Pt was not involved in decision making.Informed him that the Pt is AAOX3 and capable of making her own decisions and their decision is not legal.I made them aware that Pt has a right to know her diagnosis and prognosis.requested a family meeting before i see the patient met with and two daughters in CCU family conference room.Discussed case with NUNO Francis before family meeting who also expressed that pt is treatable. All Qs answered.Family reports that they have heard pt moaning in sleep to stop all treatments.I requested that i have to discuss this with pt myself but they are hesitant for me to talk to their mom about "dying" .I discussed the expected disease trajectory and necessary treatments required in [place] [facility].I offered to consult Palliative care team for further discussion and they agreed. PCT saw the pt and reported back to me that pt indeed wishes to stop all treatments and diagnostic work up and wants to be "left alone".family now report that they have OOH DNR for pt and Living Will and will bring it to hospital tomorrow.Pt still AOX3 and wants to be made DNR/DNI and comfort care only and wants to be comfortable. Will consult Hospice.Will likely need Home with hospice as she is not terminal but does remain high risk for decompensation due to massive PE and severe UC with high potential for bleed. appreciate PCT help with difficult situation. Time spent in various meetings and discussion in Advance Care Planning -40 minutes.
--- NOTE | 2018-03-29 19:43 | PRG ---
DATE OF SERVICE: 03/29/2018 Ms. Chandra has apparently been converted to a comfort care status. Family has relayed to the nurses that a large number of people checking on her. They just want her k ept comfortable. She has inferior cava filter in place. I will be very hesitant to restart anticoagulation in this se tting, especially with her desire for comfort measures will be available if needed. She could be tra nsferred out of the intermediate care unit.
[2018-03-30 00:16] VITALS: BP 170/88; TEMP 97
[2018-03-30] MEDS: Folic Acid 1 MG TAB PO SCH (09:11)
[2018-03-30] MEDS: Dronedarone HCl 400 MG TAB PO SCH (09:11)
[2018-03-30] MEDS: Cyanocobalamin (Vitamin B-12) 1,000 MCG TAB PO SCH (09:11)
[2018-03-30] MEDS: Digoxin 0.125 MG TAB PO SCH (09:11)
[2018-03-30] MEDS: metroNIDAZOLE 500 MG TAB PO SCH (09:12)
[2018-03-30] MEDS: Pantoprazole 40 MG VIAL IVP SCH (09:49)
--- NOTE | 2018-03-30 23:50 | DS ---
DATE OF ADMISSION: 03/21/2018 DATE OF EXPIRATION: 03/30/2018 FINAL DIAGNOSES: 1. Acute gastrointestinal bleeding, multifactorial. 2. Bilateral pulmonary embolus. 3. Left lower extremity deep venous thrombosis. 4. Atrial fibrillation with rapid ventricular response. 5. Acute ulcerative colitis with hematochezia. 6. Acute diastolic congestive heart failure with ejection fraction of 50%-55%. 7. Severe deconditioning. 8. Status post inferior vena cava filter placement. CONSULTATIONS: Dr. Scott and Dr. Craig with Pulmonology Service. Dr. Francis with GI service. Dr. Hernandez with Vascular Surgery Service. PERTINENT LABORATORY AND X-RAY FINDINGS: Lactic acid level ranged between 3.0-4.1, phosphorus 3.5, m agnesium 1.9. Troponin I ranged between 0.176-0327. BNP ranged between 828-1110, TSH 0.76. CBC sp wed a white blood cell count ranged between 15.6-29.1, hemoglobin ranged between 8.2-15.3. Blood cul tures x2 from 03/21/2018 showed no growth at 5 days. Urine culture dated 03/21/2018 showed no growth at 48 hours. C. difficile antigen toxin dated 03/27/2018 negative. Portable chest x-ray dated 02/22 showed no acute cardiopulmonary process. CT angiogram of the chest dated 03/21/2018 showed bi lateral pulmonary emboli with large saddle type embolus in the left main pulmonary artery. Bilateral lower extremity venous Doppler study dated 03/21/2018 showed thrombus in the proximal left lower ext remity femoral vein. A 2D transthoracic echocardiogram dated 03/22/2018 showed ejection fraction of 50%-55%. Diastolic dysfunction noted. Mild left atrial enlargement. Mild mitral and tricuspid valv e regurgitation. Abdominal radiograph dated 03/24/2018 showed single dilated loop of left lower quad rant bowel involving transverse colon. HOSPITAL COURSE: The patient initially presented with chest pain, shortness of breath and hypotensio n, presenting with initial blood pressure 80/40. The patient was initially managed for septic shock due to leukocytosis and placed on broad spectrum IV antibiotic therapy. The patient was initially ma naged with Levophed for pressor support; however, this was discontinued after tachycardia was noted. The patient underwent CT angiogram of the chest showing large saddle embolus and pulmonary emboli an d placed on anticoagulation. The patient was placed on heparin infusion and managed in the critical care unit. The patient also underwent venogram analysis of the lower extremity showing a left lower extremity DVT. The patient stabilized on a heparin infusion; however, developed lower GI bleed in th e context of ulcerative colitis. Due to patient's GI bleed and contraindication for further anticoag ulation, patient underwent evaluation by the Vascular Surgery Service, undergoing an eventual IVC yusef ter placement. The patient did receive treatment for the ulcerative colitis after evaluation by the GI service. The patient received IV methylprednisolone; however, continued to clinically decompensat e. Due to patient's overall comorbid status and severe deconditioning, discussions were had with the family regarding ongoing aggressive interventions versus palliative care therapy. The patient decid ed to pursue comfort and palliative measures after discussing with her family members. Palliative Ca re Service was involved with assistance and support and confirm patient's wishes to proceed with this course. The patient apparently decompensated in the evening on 03/29/2018 as well as early a.m. 04/2018 with severe bradycardia. The patient was discovered pulseless without spontaneous respiratio ns and at 9:26 a.m. on 03/30/2018. Decedent affairs were notified and family were present at the bedside.
[2018-03-31] MEDS ORDERED: predniSONE 20 MG TAB PO SCH (08:00)
[2018-04-07] MEDS ORDERED: predniSONE 20 MG TAB PO SCH (08:00)
[2018-04-14] MEDS ORDERED: predniSONE 5 MG TAB PO SCH (08:00)
[2018-04-21] MEDS ORDERED: predniSONE 5 MG TAB PO SCH (08:00)
== END 2018-03-30 13:35 | disposition expired | DRG 853 ==
LOC: ERS 13:25 → IMCU/EMU 17:15
PROVIDERS: ADMIT Internal Medicine; ATTEND Internal Medicine
PROC: 3E033XZ Introduction of Vasopressor into Peripheral Vein, Percutaneous Approach (ICD-10-PCS; principal; 2018-03-21)
PROC: 06H03DZ Insertion of Intraluminal Device into Inferior Vena Cava, Percutaneous Approach (ICD-10-PCS; 2018-03-26)
DX: A41.9 Sepsis, unspecified organism (principal); I21.A1 Myocardial infarction type 2; R65.21 Severe sepsis with septic shock; I50.31 Acute diastolic (congestive) heart failure; I26.92 Saddle embolus of pulmonary artery without acute cor pulmonale; Z66 Do not resuscitate; Z51.5 Encounter for palliative care; J96.01 Acute respiratory failure with hypoxia; I47.1 Supraventricular tachycardia; K51.90 Ulcerative colitis, unspecified, without complications; E87.2 Acidosis; D68.32 Hemorrhagic disorder due to extrinsic circulating anticoagulants; D62 Acute posthemorrhagic anemia; K51.811 Other ulcerative colitis with rectal bleeding; K51.511 Left sided colitis with rectal bleeding; E87.6 Hypokalemia; T45.515A Adverse effect of anticoagulants, initial encounter; Y92.239 Unspecified place in hospital as the place of occurrence of the external cause; D75.89 Other specified diseases of blood and blood-forming organs; E78.5 Hyperlipidemia, unspecified; K21.9 Gastro-esophageal reflux disease without esophagitis; Z96.652 Presence of left artificial knee joint; Z90.49 Acquired absence of other specified parts of digestive tract; Z90.10 Acquired absence of unspecified breast and nipple; Z88.1 Allergy status to other antibiotic agents; Z88.0 Allergy status to penicillin; Z88.2 Allergy status to sulfonamides; Z91.09 Other allergy status, other than to drugs and biological substances; Z82.49 Family history of ischemic heart disease and other diseases of the circulatory system; Z79.899 Other long term (current) drug therapy; Z79.52 Long term (current) use of systemic steroids
CPT/HCPCS: 36415; 37191; 71045; 71275; 74018; 76942; 80048; 80053; 80162; 81003; 82330; 82553; 82803; 82805; 83605; 83735; 83880; 84100; 84443; 84484; 85025; 85730; 86850; 86900; 86901; 87040; 87086; 87324; 87449; 93005; 93306; 93970; 96361; 96365; A4216; C1769; C9113; G8978-GP-CM; G8979-GP-CK; G8987-GO-CM; G8988-GO-CK; J0692; J1160; J1644; J1650; J1940; J2001; J2270; J2405; J2920; J2930; J3480; J7050; J7506